=== PATIENT | male | born 1930 | race African-American/Black ===

== ENCOUNTER 2017-04-02 17:01 | Emergency (ER) | payer MEDICARE ==
--- NOTE | 2017-04-02 18:32 | RAD ---
RADIOGRAPH LEFT WRIST THREE VIEWS: Date: 04/02/17 Time: 5:34 p.m. HISTORY: 86-year-old male status post fall resulting in left wrist pain. FINDINGS: Mildly comminuted fracture of distal radial metaphysis, with predominantly transverse orientation, w ith dorsal impaction and dorsal angulation of distal fragment. No other fracture identified. No disl ocation. Diffuse osteopenia. No involvement of distal radiocarpal articular joint surface identified . IMPRESSION: 1. Acute, traumatic, displaced, closed, Colles' fracture of left distal radial metaphysis. 2. Diffuse, severe osteoporosis. POS: [facility]
[2017-04-02] MEDS ORDERED: Ketorolac Tromethamine 30 MG/ML VIAL ONE (18:50)
[2017-04-02] MEDS ORDERED: Lidocaine 1% PF 5 ML VIAL ONE ×2 (19:01)
[2017-04-02] MEDS ORDERED: Diprivan 20 ML ONE (21:12)
[2017-04-02] MEDS ORDERED: Fentanyl 100 MCG/2 ML VIAL ONE (21:12)
--- NOTE | 2017-04-02 22:43 | RAD ---
RADIOGRAPH LEFT WRIST 2 VIEWS: Date: 04/02/17 Time: 10:12 p.m. HISTORY: 86-year-old male status post reduction of distal radial fracture. COMPARISON: 04/02/17, 5:34 p.m. FINDINGS: The wrist has been placed into a splint. There is interval improvement in the alignment of distal ra dial metaphyseal fracture. IMPRESSION: 1. Acute, traumatic, displaced, angulated, Colles' fracture of the distal radial metaphysis. 2. Interval improvement in alignment after reduction. POS: [facility]
== END 2017-04-02 22:24 | disposition home or self-care (01) ==
LOC: ERS 17:01
DX: S52.532A Colles' fracture of left radius, initial encounter for closed fracture (principal); F41.9 Anxiety disorder, unspecified; F31.9 Bipolar disorder, unspecified; E78.5 Hyperlipidemia, unspecified; I10 Essential (primary) hypertension; J44.9 Chronic obstructive pulmonary disease, unspecified; W18.30XA Fall on same level, unspecified, initial encounter
CPT/HCPCS: 25605; 94760; 96360; 96372; 99152; J1885; J2001; J2704; J3010

== ENCOUNTER 2018-02-11 13:09 | Inpatient (IN) | payer MEDICARE, OTHER ==
[2018-02-11 15:08] LABS: CKMB 2.4 ng/mL (0-6.6); Troponin I Less than 0.010 ng/mL (< 0.028)
--- NOTE | 2018-02-11 15:31 | RAD ---
PORTABLE CHEST 1 VIEW: DATE: 02/01/18. TIME: 1:50 p.m. and 2:18 p.m. HISTORY: New-onset atrial flutter. FINDINGS: Portable chest radiographs were obtained with and without nipple markers. The heart size is normal. The aorta is tortuous. The lungs are expanded without focal areas of cons olidation, pneumothorax, daysi pulmonary edema, or pleural effusions. A density in the right chest n oted on image 1 corresponds to nipple shadows on the image with nipple markers. IMPRESSION: No acute process. POS: [facility]
[2018-02-11 18:49] LABS: Troponin I Less than 0.010 ng/mL (< 0.028)
[2018-02-11] MEDS ORDERED: Albuterol Sulfate 2.5 mg/3 ml Neb NEB PRN (19:51)
[2018-02-11] MEDS ORDERED: Senokot 8.6 MG TAB PO PRN (19:51)
[2018-02-11] MEDS ORDERED: Guaifenesin DM 100-10/5 ML UDCUP PO PRN (19:51)
[2018-02-11] MEDS ORDERED: Acetaminophen 325 MG TAB PO PRN (19:51)
[2018-02-11] MEDS ORDERED: Famotidine 20 MG TAB PO SCH (21:00)
[2018-02-11] MEDS: Nicotine 21 MG PATCH TD SCH (21:45)
[2018-02-11] MEDS: Gabapentin 300 MG CAP PO SCH (21:46)
[2018-02-11] MEDS: Terazosin HCl 5 MG CAP PO SCH (21:46)
[2018-02-11] MEDS: Montelukast Sodium 10 mg Tablet PO SCH (21:46)
[2018-02-11] MEDS: Simvastatin 20 MG TAB PO SCH (21:47)
[2018-02-11 21:52] VITALS: BMI 22.5
[2018-02-11] MEDS ORDERED: Diazepam 5 MG TAB PO PRN (22:28)
[2018-02-11] MEDS ORDERED: Diazepam 5 MG TAB PO SCH (22:30)
[2018-02-11] MEDS ORDERED: Thiamine HCl 200 MG/2 ML VIAL IM SCH (22:30)
[2018-02-12] MEDS: Ipratropium Bromide 2.5 ml Neb NEB SCH ×4 (01:18→19:06)
--- NOTE | 2018-02-12 01:43 | HP ---
REASON FOR ADMISSION: New onset atrial flutter in sinus rhythm at present. HISTORY OF PRESENTING ILLNESS: [facility] Jazzy trimble s morning. While in the waiting room, he was found to have had elevated heart rate. This was checke d again with the patient having increased heart rate, they did an EKG, which was irregular. He was a sked to come to the emergency room. On arrival here, patient was in atrial flutter at 146 beats per minute with 2:1 block. The patient apparently spontaneously converted to sinus rhythm and a repeat E KG done at 1:26 p.m. shows him to be in normal sinus rhythm. His current heart rate is around 61 per minute. This is on the ER monitor. Mr. Sarkar has no complaints of chest pain or palpitation. No complaints of shortness of breath, PND, or orthopnea. He states he has never had any problems with h is heart rhythm. The patient was in [facility] and moved here a year ago to live with his niece. PAST MEDICAL AND SURGICAL HISTORY: History of coronary artery disease with likely PTCA done in 1964 per patient. COPD, hypertension, dyslipidemia, glaucoma, chronic anemia, GERD, chronic back pain wit h prior back surgery, benign prostatic hypertrophy, right eye surgery with ongoing visual disturbance , colonoscopy done 4 years back per patient which was normal. CURRENT MEDICATIONS: The patient is on fluoxetine 20 mg p.o. daily, Singulair 10 mg p.o. daily, Prot jeremias 40 mg twice daily, Avodart 0.5 mg p.o. daily, gabapentin 300 mg p.o. 3 times daily, oxybutynin 5 mg daily, terazosin 10 mg p.o. q.a.m., aspirin 81 mg p.o. daily, Advair Diskus 250/50 mcg twice kyler y, Spiriva inhaler 18 mcg daily, albuterol inhaler q.6 hourly p.r.n., Zocor 20 mg p.o. q.a.m., dorzol amide eyedrops. ALLERGIES: No known drug allergies. PERSONAL HISTORY: The patient continues to smoke 1 pack a day and he also drinks a big cup of AirXpanders. Does not abuse drugs. He is currently living with his niece. FAMILY HISTORY: Mother at the age of 79 years from old age. Father was alcoholic and at t he age of 57 years. CODE STATUS: The patient would like to have one time CPR and he does not want to be resuscitated aft er that. Power of corporate associate attorney is his niece, Ms. Maliha Cobos. The patient is not and has no chi ldren per patient. REVIEW OF SYSTEMS: The following complete review of systems was negative, unless otherwise mentioned in the HPI or below: Constitutional: Weight loss or gain, ability to conduct usual activities. Sk in: Rash, itching. Eyes: Double vision, pain. ENT/Mouth: Nose bleeding, neck stiffness, pain, te nderness. Cardiovascular: Palpitations, dyspnea on exertion, orthopnea. Respiratory: Shortness of breath, wheezing, cough, hemoptysis, fever or night sweats. Gastrointestinal: Poor appetite, abdom inal pain, heartburn, nausea, vomiting, constipation, or diarrhea. Genitourinary: Urgency, frequenc y, dysuria, nocturia. Musculoskeletal: Pain, swelling. Neurologic/Psychiatric: Anxiety, depressio n. Allergy/Immunologic: Skin rash, bleeding tendency. PHYSICAL EXAMINATION: GENERAL: The patient is an 87-year-old male, who is currently not in any acute distress. VITAL SIGNS: Blood pressure 130/70, pulse 68 per minute, respiratory rate 16 per minute, temperature 98 degrees Fahrenheit, saturating 94% on room air. NECK: Supple, no elevated JVD. HEENT: Eyes, extraocular muscles intact, pupils reacting to light. Oral cavity, mucous membranes ar e moist. No exudates or congestion. CARDIOVASCULAR SYSTEM: S1, S2 heard. Regular rhythm. RESPIRATORY SYSTEM: Air entry 2+ bilateral. Scattered rhonchi plus no wheezes. ABDOMEN: Soft, bowel sounds heard. No tenderness, rigidity or guarding. EXTREMITIES: No peripheral edema or calf tenderness. VASCULAR SYSTEM: Peripheral pulses 1+ bilateral. No ischemic ulcerations or gangrene. CENTRAL NERVOUS SYSTEM: No gross focal deficits noted. The patient is hard of hearing, otherwise is oriented well. PSYCHIATRIC: The patient's mood is euthymic. No hallucinations or delusions. LABORATORY AND X-RAY FINDINGS: Initial EKG done in the ER showed atrial flutter with ventricular rat e of 146 beats per minute with 2:1 block, a subsequent EKG done at 01:26 p.m. shows normal sinus rhyt hm at 78 beats per minute. White count of 7, H&H 13 and 41, platelet count 209, MCV is 98. Electrol ytes are stable. BUN 11, creatinine 1.2. Troponin x2 is negative. CK-MB 2.4, CK levels 152. Liver enzymes within normal limits. Total bilirubin 0.5, albumin is 4.1, total cholesterol 210. HDL was greater than 260. This was 11:00 a.m. sample. Chest x-ray done showed no acute process. CLINICAL IMPRESSION AND PLAN: The patient will be admitted to telemetry for new onset atrial flutter which spontaneously resolved in the ER. The patient subsequently got up to go to restroom and has h ad elevation in his heart rates going up to 100 per staff in the ER. It soon comes back to resting r ates around 60 per minute once he is on the bed. He will be placed on a small dose of Cardizem 30 mg p.o. 3 times daily[address] We will also place him on a full dose of aspirin. We will continue all his amanda e medications including Neurontin, Singulair, Ditropan, Zocor, Hytrin, Spiriva inhaler, Avodart at ho me doses. He will be on a nicotine patch. Echo with 2D Doppler for LV function and valvular functio n and to rule out thrombus. The patient is 87 years old and is not steady on his feet. I have discu ssed anticoagulation with patient and his niece Ms. Maliha Cobos here at bedside. He also drinks a la rge cup of constantino on a daily basis. The patient also has underlying dementia and usually has sundown ing in the evenings per niece. In view of all the above risks, the patient would not be a candidate for anticoagulation due to increased risk of bleeding. They agree with the current plan. We will ge t consultation with Dr. Fulton who is education rn for Cardiology as well.
[2018-02-12] MEDS ORDERED: Diazepam 5 MG TAB PO PRN (04:00)
[2018-02-12 06:09] LABS: Anion Gap 9 mmol/L (10-20); BUN (Urea Nitrogen) 9 mg/dL (8.4-25.7); Calc. Creatinine Clearance 51 mL/min (70-130); Calcium 8.8 mg/dL (7.8-10.44); Carbon Dioxide 23 mmol/L (23-31); Chloride 108 mmol/L (98-107); Estimated GFR-MDRD 86; Glucose 92 mg/dL (83-110); Potassium 3.3 mmol/L (3.5-5.1); Sodium 137 mmol/L (136-145)
[2018-02-12 06:48] LABS: Hemoglobin 11.8 g/dL (14.0-18.0); Mean Corpuscular HGB CONC 33.9 g/dL (32.0-36.0); Mean Corpuscular Hemoglobin 32.6 pg (27.0-31.0); Mean Corpuscular Volume 96.2 fL (78.0-98.0); Mean Platelet Volume 7.4 fL (7.4-10.4); Platelet Count 186 thou/uL (130-400); RBC Distribution Width 14.7 % (11.5-14.5); White Blood Cell (WBC) Count 7.2 thou/uL (4.8-10.8)
[2018-02-12 06:49] LABS: Hypochromia SLIGHT = 6-15 cells (100X) (0-5/hpf); Lymphocytes 27 % (21-51); MDiff Complete? YES; Monocytes 8 % (0-10); Neutrophil 65 % (42-75); PLT Morphology Comment Appears Adequate
[2018-02-12] MEDS ORDERED: Spiriva 18 MCG CAP (Box of 5 Caps) INH SCH (07:00)
[2018-02-12] MEDS ORDERED: Enoxaparin Sodium 40 MG/0.4 ML SYRINGE SC SCH (09:00)
[2018-02-12] MEDS: Enoxaparin Sodium 80 MG/0.8 ML SYRINGE SC SCH ×2 (09:07→20:13)
[2018-02-12] MEDS: FLUoxetine HCl 20 MG CAP PO SCH (09:08)
[2018-02-12] MEDS: Magnesium Oxide 400 MG TAB PO SCH (09:08)
[2018-02-12] MEDS: Gabapentin 300 MG CAP PO SCH ×3 (09:08→20:15)
[2018-02-12] MEDS: Potassium Chloride 20 MEQ TAB PO SCH ×2 (09:09→20:15)
[2018-02-12] MEDS: Dutasteride 0.5 MG CAP PO SCH (09:09)
[2018-02-12] MEDS: Oxybutynin 5 MG TAB PO SCH (09:09)
[2018-02-12] MEDS: Folic Acid 1 MG TAB PO SCH (09:09)
[2018-02-12] MEDS: Multivitamin W/ Minerals 1 TAB PO SCH (09:09)
[2018-02-12] MEDS: Aspirin 325 mg Enteric Coated Tablet PO SCH (09:12)
[2018-02-12 09:23] LABS: Cardiac Risk 1.5 (Less than 4.5)
[2018-02-12 10:55] LABS: Platelet Count 197 thou/uL (130-400)
--- NOTE | 2018-02-12 12:50 | PDOC.PN ---
- Subjective Encounter Start Date: 02/12/18 Encounter Start Time: 09:30 Subjective: awake, oriented well, watching tv -: no c/o palp or chest pain - Objective Resuscitation Status: Resuscitation Status FULL:Full Resuscitation MAR Reviewed: Yes Vital Signs & Weight: Vital Signs (12 hours) Temp Pulse Resp BP BP Pulse Ox 02/12/18 08:00 97.5 F L 68 16 159/70 H 159/70 H 93 L 02/12/18 07:00 76 12 02/12/18 04:00 134/61 02/12/18 03:42 98.2 F 67 16 134/61 92 L 02/12/18 01:18 60 12 93 L Weight Weight 148 lb 2.41 oz I&O: 02/11/18 02/12/18 02/13/18 06:59 06:59 06:59 Intake Total 720 240 Output Total 200 Balance 520 240 Result Diagrams: 02/12/18 10:44 02/12/18 10:44 Phys Exam - Physical Examination HEENT: PERRLA, moist MMs Neck: no JVD, supple Respiratory: no wheezing, no rales Cardiovascular: RRR, no significant murmur Gastrointestinal: soft, non-tender, positive bowel sounds Musculoskeletal: no edema, pulses present Neurological: non-focal, moves all 4 limbs Psychiatric: A&O x 3 Dx/Plan (1) Atrial flutter Code(s): I48.92 - UNSPECIFIED ATRIAL FLUTTER Status: Acute Comment: new onset in sinus rhythm now (2) CAD (coronary artery disease) Code(s): I25.10 - ATHSCL HEART DISEASE OF [place] CORONARY ARTERY W/O ANG PCTRS Status: Chronic Qualifiers: Coronary Disease-Associated Artery/Lesion type: [place] artery [place] vs. transplanted heart: [place] heart Associated angina: without angina Qualified Code(s): I25.10 - Atherosclerotic heart disease of [place] coronary artery without angina pectoris (3) COPD (chronic obstructive pulmonary disease) Status: Chronic Qualifiers: COPD type: chronic bronchitis (4) BPH (benign prostatic hyperplasia) Code(s): N40.0 - BENIGN PROSTATIC HYPERPLASIA WITHOUT LOWER URINRY TRACT SYMP Status: Chronic Qualifiers: Lower urinary tract symptom presence: unspecified whether lower urinary tract symptoms present Qualified Code(s): N40.0 - Benign prostatic hyperplasia without lower urinary tract symptoms (5) Tobacco abuse Code(s): Z72.0 - TOBACCO USE Status: Chronic (6) Alcohol abuse Code(s): F10.10 - ALCOHOL ABUSE, UNCOMPLICATED Status: Chronic - Plan await echo results -: stable on low dose cardizem -: not a candidate for anticoagulation due to alc abuse and risk of fall -: on full dose asp, valium prn for alc wd, avodart, hytrin and ditropan -: dc plan this evening if cleared by cardio * . Review of Systems - Medications/Allergies Allergies/Adverse Reactions: Allergies Allergy/AdvReac Type Severity Reaction Status Date / Time No Known Drug Allergies Allergy Unverified 02/11/18 20:54 Medications: Current Medications Acetaminophen (Tylenol) 650 mg PO Q4H PRN PRN Reason: Headache/Fever or Pain Albuterol Sulfate (Ventolin) 2.5 mg NEB [id number] PRN PRN Reason: SOB &/or Wheezing Aspirin (Ecotrin) 325 mg PO DAILY [facility] Last Admin: 02/12/18 09:12 Dose: 325 mg Diazepam (Valium) 5 mg PO Q4H PRN PRN Reason: FOR ASE 10 OR GREATER Diltiazem HCl (Cardizem) 30 mg PO TID [facility] Last Admin: 02/12/18 09:08 Dose: 30 mg Dutasteride (Avodart) 0.5 mg PO DAILY [facility] Last Admin: 02/12/18 09:09 Dose: 0.5 mg Enoxaparin Sodium (Lovenox) 70 mg SC 0900,2100 [facility] Last Admin: 02/12/18 09:07 Dose: 70 mg Famotidine (Pepcid) 20 mg PO QPM [facility] Fluoxetine HCl (Prozac) 20 mg PO DAILY [facility] Last Admin: 02/12/18 09:08 Dose: 20 mg Folic Acid (Folvite) 1 mg PO DAILY [facility] Last Admin: 02/12/18 09:09 Dose: 1 mg Gabapentin (Neurontin) 300 mg PO TID [facility] Last Admin: 02/12/18 09:08 Dose: 300 mg Guaifenesin/Dextromethorphan (Robitussin Dm) 15 ml PO Q4H PRN PRN Reason: Cough Ipratropium [place] (Atrovent) 2.5 ml NEB [id number] [facility] Last Admin: 02/12/18 07:00 Dose: 2.5 ml Iron/Minerals/Multivitamins (Theragran M) 1 tab PO DAILY [facility] Last Admin: 02/12/18 09:09 Dose: 1 tab Magnesium Oxide (Magnesium Oxide) 400 mg PO DAILY [facility] Last Admin: 02/12/18 09:08 Dose: 400 mg Montelukast Sodium (Singulair) 10 mg PO QPM [facility] Last Admin: 02/11/18 21:46 Dose: 10 mg Nicotine (Nicoderm Patch) 21 mg TD Q24HR [facility] Last Admin: 02/11/18 21:45 Dose: 21 mg Oxybutynin Chloride (Ditropan) 5 mg PO DAILY [facility] Last Admin: 02/12/18 09:09 Dose: 5 mg Potassium Chloride (K-Dur) 40 meq PO BID [facility] Stop: 02/13/18 09:01 Last Admin: 02/12/18 09:09 Dose: 40 meq Senna (Senokot) 2 tab PO HSPRN PRN PRN Reason: Constipation Simvastatin (Zocor) 20 mg PO HS [facility] Last Admin: 02/11/18 21:47 Dose: 20 mg Sodium Chloride (Flush - Normal Saline) 10 ml IVF Q12HR [facility] Last Admin: 02/12/18 09:09 Dose: 10 ml Sodium Chloride (Flush - Normal Saline) 10 ml IVF PRN PRN PRN Reason: Saline Flush Last Admin: 02/12/18 00:08 Dose: 10 ml Terazosin HCl (Hytrin) 5 mg PO HS [facility] Last Admin: 02/11/18 21:46 Dose: 5 mg Thiamine HCl (Thiamine) 100 mg PO DAILY [facility] Last Admin: 02/12/18 09:08 Dose: 100 mg
--- NOTE | 2018-02-12 14:10 | CON ---
DATE OF CONSULTATION: 02/12/2018 HISTORY OF PRESENT ILLNESS: Azalea Sarkar is a pleasant 87-year-old black male, who denies any type o f heart rhythm problem in the past. [facility] and w as found to have an elevated heart rate. An EKG was performed, which revealed atrial flutter and he was sent to the emergency room. In the emergency room, he was in atrial flutter with 2:1 block, rate of 146 per minute and then apparently spontaneously converted to sinus rhythm. He denies any chest discomfort, palpitations or shortness of breath. He denies any history of lightheadedness, dizziness , or syncope. He does state that he had a stent placed in 1964. He was questioned about this because stents were n ot invented until the ; however, he is insistent this occurred in 1964. He does have some probl ems with mild dementia and sundowning in the past. PAST MEDICAL HISTORY: Probable coronary artery disease as noted above, COPD, hypertension, hyperlipi demia, anemia, GERD, back pain, and benign prostatic hypertrophy. CURRENT MEDICATIONS: At home there is albuterol nebs t.i.d., albuterol inhaler 2 puffs q.4 hours p.r .n., aspirin daily, vitamin D3 daily, docusate 100 mg p.r.n., dutasteride 1 tablet daily, Prozac 20 m g daily, Advair 1 puff b.i.d., gabapentin 300 t.i.d., Singulair 10 mg q.p.m., Ditropan 5 mg daily, pa ntoprazole b.i.d., simvastatin 20 mg at bedtime, terazosin 10 mg daily, and Spiriva 1 puff daily. ALLERGIES: None. OPERATIONS: Back surgery. SOCIAL HISTORY: Patient continues to smoke about 1 pack per day. He drinks a cup of constantino every da y. He has moved from [place] 1 year ago to live with his niece. FAMILY HISTORY: Negative for coronary artery disease. REVIEW OF SYSTEMS: Twelve-point review of systems otherwise unremarkable. PHYSICAL EXAMINATION: VITAL SIGNS: 134/61, pulse of 76, sinus rhythm on the monitor. HEENT: PERRL. NECK: Supple. CHEST: Clear. CARDIAC: S1 and S2 are normal, without any S3, S4, or murmurs. Carotid upstrokes normal without bru its. ABDOMEN: Normal bowel sounds, without tenderness, organomegaly. EXTREMITIES: Revealed no clubbing, cyanosis or edema (although the patient states his right leg beco me swollen at times). NEUROLOGIC: Grossly intact. SKIN: Warm and dry. LABORATORY DATA: EKG on admission revealed atrial flutter with 2:1 block. Subsequent EKG reveals no rmal sinus rhythm and is unremarkable. Hemoglobin 11.8, hematocrit 34.6, white count 7200, platelets 186,000. Sodium 137, potassium 3.3, chloride 108, carbon dioxide 23, BUN 9, creatinine 1.00. Tropo rajesh I x2 is normal. Cholesterol 210, triglycerides 37, HDL 260, LDL was not performed (somewhat conf using in that the HDL is greater than the total cholesterol and imagine that the triglycerides were 2 60, and HDL was 37, I will ask the laboratory to review this). IMPRESSION: 1. Atrial flutter, asymptomatic. He spontaneously converted to sinus rhythm. 2. History of coronary artery disease with stent placement according to the patient, although the da tabase is uncertain since he states this was placed in 1964, which is approximately 30 years before s tents were developed. 3. Hypertension. 4. Hyperlipidemia. 5. Smoker. 6. Chronic obstructive pulmonary disease. 7. Anemia. 8. Chronic back pain. 9. Benign prostatic hypertrophy. PLAN: The primary service feels that he should not be anticoagulated long-term due to his dementia, not being steady on his feet. I do feel, however, that during this hospital course, it would be adva ntageous to anticoagulate him since he just had this episode of atrial flutter and he will be placed on Lovenox 65 mg subcu b.i.d. Echocardiogram will be performed. Electrophysiology will be consulted in regards to possible catheter ablation of his atrial fibrillation after the weekend.
[2018-02-12] MEDS: Famotidine 20 MG TAB PO SCH (20:15)
[2018-02-12] MEDS: Simvastatin 20 MG TAB PO SCH (20:15)
[2018-02-12] MEDS: Montelukast Sodium 10 mg Tablet PO SCH (20:15)
[2018-02-12] MEDS: Terazosin HCl 5 MG CAP PO SCH (20:15)
[2018-02-12] MEDS: Nicotine 21 MG PATCH TD SCH (20:19)
[2018-02-13] MEDS: Ipratropium Bromide 2.5 ml Neb NEB SCH ×5 (00:33→23:24)
[2018-02-13] MEDS: Potassium Chloride 20 MEQ TAB PO SCH (08:58)
[2018-02-13] MEDS: Multivitamin W/ Minerals 1 TAB PO SCH (08:59)
[2018-02-13] MEDS: Dutasteride 0.5 MG CAP PO SCH (08:59)
[2018-02-13] MEDS: FLUoxetine HCl 20 MG CAP PO SCH (08:59)
[2018-02-13] MEDS: Magnesium Oxide 400 MG TAB PO SCH (08:59)
[2018-02-13] MEDS: Enoxaparin Sodium 80 MG/0.8 ML SYRINGE SC SCH ×2 (08:59→20:38)
[2018-02-13] MEDS: Oxybutynin 5 MG TAB PO SCH (08:59)
[2018-02-13] MEDS: Folic Acid 1 MG TAB PO SCH (08:59)
[2018-02-13] MEDS: Gabapentin 300 MG CAP PO SCH ×3 (09:02→20:37)
[2018-02-13] MEDS: Aspirin 325 mg Enteric Coated Tablet PO SCH (09:05)
--- NOTE | 2018-02-13 13:33 | PDOC.PN ---
- Subjective Encounter Start Date: 02/13/18 Encounter Start Time: 10:50 Subjective: no chest pain or sob or palp - Objective Resuscitation Status: Resuscitation Status FULL:Full Resuscitation MAR Reviewed: Yes Vital Signs & Weight: Vital Signs (12 hours) Temp Pulse Resp BP BP Pulse Ox 02/13/18 12:00 98.5 F 68 14 130/79 130/79 95 02/13/18 08:00 98.2 F 60 14 142/64 H 95 02/13/18 07:20 98.2 F 60 14 142/64 H 95 02/13/18 06:35 64 12 02/13/18 04:00 98.5 F 68 16 127/64 127/64 94 L Weight Weight 148 lb 2.41 oz I&O: 02/12/18 02/13/18 02/14/18 06:59 06:59 06:59 Intake Total 720 480 Output Total 200 Balance 520 480 Result Diagrams: 02/12/18 10:44 02/12/18 10:44 Phys Exam - Physical Examination HEENT: PERRLA, moist MMs Neck: no JVD, supple Respiratory: no wheezing, no rales Cardiovascular: RRR, no significant murmur Gastrointestinal: soft, non-tender, positive bowel sounds Musculoskeletal: no edema, pulses present Neurological: non-focal, moves all 4 limbs Psychiatric: normal affect, A&O x 3 Dx/Plan (1) Atrial flutter Code(s): I48.92 - UNSPECIFIED ATRIAL FLUTTER Status: Acute Comment: new onset in sinus rhythm now (2) CAD (coronary artery disease) Code(s): I25.10 - ATHSCL HEART DISEASE OF [place] CORONARY ARTERY W/O ANG PCTRS Status: Chronic Qualifiers: Coronary Disease-Associated Artery/Lesion type: [place] artery [place] vs. transplanted heart: [place] heart Associated angina: without angina Qualified Code(s): I25.10 - Atherosclerotic heart disease of [place] coronary artery without angina pectoris (3) COPD (chronic obstructive pulmonary disease) Status: Chronic Qualifiers: COPD type: chronic bronchitis (4) BPH (benign prostatic hyperplasia) Code(s): N40.0 - BENIGN PROSTATIC HYPERPLASIA WITHOUT LOWER URINRY TRACT SYMP Status: Chronic Qualifiers: Lower urinary tract symptom presence: unspecified whether lower urinary tract symptoms present Qualified Code(s): N40.0 - Benign prostatic hyperplasia without lower urinary tract symptoms (5) Tobacco abuse Code(s): Z72.0 - TOBACCO USE Status: Chronic (6) Alcohol abuse Code(s): F10.10 - ALCOHOL ABUSE, UNCOMPLICATED Status: Chronic - Plan hemostable -: is on lovneox 70mg q12h, full dose asp -: cardizem tid -: for EPS in am -: d/w Mrs.Brown Jett POA * . Review of Systems - Medications/Allergies Allergies/Adverse Reactions: Allergies Allergy/AdvReac Type Severity Reaction Status Date / Time No Known Drug Allergies Allergy Verified 02/12/18 23:18 Medications: Current Medications Acetaminophen (Tylenol) 650 mg PO Q4H PRN PRN Reason: Headache/Fever or Pain Albuterol Sulfate (Ventolin) 2.5 mg NEB [id number] PRN PRN Reason: SOB &/or Wheezing Aspirin (Ecotrin) 325 mg PO DAILY [facility] Last Admin: 02/13/18 09:05 Dose: 325 mg Diazepam (Valium) 5 mg PO Q4H PRN PRN Reason: FOR ASE 10 OR GREATER Last Admin: 02/12/18 23:18 Dose: 5 mg Diltiazem HCl (Cardizem) 30 mg PO TID [facility] Last Admin: 02/13/18 08:59 Dose: 30 mg Dutasteride (Avodart) 0.5 mg PO DAILY [facility] Last Admin: 02/13/18 08:59 Dose: 0.5 mg Enoxaparin Sodium (Lovenox) 70 mg SC 0900,2100 [facility] Last Admin: 02/13/18 08:59 Dose: 70 mg Famotidine (Pepcid) 20 mg PO QPM [facility] Last Admin: 02/12/18 20:15 Dose: 20 mg Fluoxetine HCl (Prozac) 20 mg PO DAILY [facility] Last Admin: 02/13/18 08:59 Dose: 20 mg Folic Acid (Folvite) 1 mg PO DAILY [facility] Last Admin: 02/13/18 08:59 Dose: 1 mg Gabapentin (Neurontin) 300 mg PO TID [facility] Last Admin: 02/13/18 09:02 Dose: 300 mg Guaifenesin/Dextromethorphan (Robitussin Dm) 15 ml PO Q4H PRN PRN Reason: Cough Ipratropium [place] (Atrovent) 2.5 ml NEB [id number] [facility] Last Admin: 02/13/18 06:35 Dose: 2.5 ml Iron/Minerals/Multivitamins (Theragran M) 1 tab PO DAILY [facility] Last Admin: 02/13/18 08:59 Dose: 1 tab Magnesium Oxide (Magnesium Oxide) 400 mg PO DAILY [facility] Last Admin: 02/13/18 08:59 Dose: 400 mg Montelukast Sodium (Singulair) 10 mg PO QPM [facility] Last Admin: 02/12/18 20:15 Dose: 10 mg Nicotine (Nicoderm Patch) 21 mg TD Q24HR [facility] Last Admin: 02/12/18 20:19 Dose: 21 mg Oxybutynin Chloride (Ditropan) 5 mg PO DAILY [facility] Last Admin: 02/13/18 08:59 Dose: 5 mg Senna (Senokot) 2 tab PO HSPRN PRN PRN Reason: Constipation Simvastatin (Zocor) 20 mg PO HS [facility] Last Admin: 02/12/18 20:15 Dose: 20 mg Sodium Chloride (Flush - Normal Saline) 10 ml IVF Q12HR [facility] Last Admin: 02/13/18 09:05 Dose: 10 ml Sodium Chloride (Flush - Normal Saline) 10 ml IVF PRN PRN PRN Reason: Saline Flush Last Admin: 02/12/18 00:08 Dose: 10 ml Terazosin HCl (Hytrin) 5 mg PO HS [facility] Last Admin: 02/12/18 20:15 Dose: 5 mg Thiamine HCl (Thiamine) 100 mg PO DAILY [facility] Last Admin: 02/13/18 08:59 Dose: 100 mg
[2018-02-13] MEDS: Terazosin HCl 5 MG CAP PO SCH (20:37)
[2018-02-13] MEDS: Montelukast Sodium 10 mg Tablet PO SCH (20:37)
[2018-02-13] MEDS: Simvastatin 20 MG TAB PO SCH (20:38)
[2018-02-13] MEDS: Famotidine 20 MG TAB PO SCH (20:38)
[2018-02-13] MEDS: Nicotine 21 MG PATCH TD SCH (20:43)
[2018-02-14] MEDS: Ipratropium Bromide 2.5 ml Neb NEB SCH ×3 (06:49→19:07)
[2018-02-14] MEDS: Aspirin 325 mg Enteric Coated Tablet PO SCH (08:34)
[2018-02-14] MEDS: Gabapentin 300 MG CAP PO SCH ×3 (08:34→20:11)
[2018-02-14] MEDS: Multivitamin W/ Minerals 1 TAB PO SCH (08:34)
[2018-02-14] MEDS: FLUoxetine HCl 20 MG CAP PO SCH (08:34)
[2018-02-14] MEDS: Dutasteride 0.5 MG CAP PO SCH (08:34)
[2018-02-14] MEDS: Magnesium Oxide 400 MG TAB PO SCH (08:35)
[2018-02-14] MEDS: Folic Acid 1 MG TAB PO SCH (08:35)
[2018-02-14] MEDS: Oxybutynin 5 MG TAB PO SCH (08:35)
[2018-02-14 10:05] LABS: Hemoglobin 12.4 g/dL (14.0-18.0); Platelet Count 207 thou/uL (130-400)
--- NOTE | 2018-02-14 12:12 | PDOC.PN ---
- Subjective Encounter Start Date: 02/14/18 Encounter Start Time: 10:20 Subjective: no chest pain or palp -: neice at bedside -: is npo for EPS - Objective Resuscitation Status: Resuscitation Status FULL:Full Resuscitation MAR Reviewed: Yes Vital Signs & Weight: Vital Signs (12 hours) Temp Pulse Resp BP BP Pulse Ox 02/14/18 08:29 99.0 F 72 17 127/63 95 02/14/18 06:49 80 16 97 02/14/18 04:00 123/86 02/14/18 03:46 98.1 F 72 17 123/86 92 L Weight Weight 136 lb 7.458 oz I&O: 02/13/18 02/14/18 02/15/18 06:59 06:59 06:59 Intake Total 480 1300 Output Total 1325 Balance 480 -25 Result Diagrams: 02/14/18 09:45 02/14/18 09:45 Phys Exam - Physical Examination HEENT: PERRLA, moist MMs Neck: no JVD, supple Respiratory: no wheezing, no rales Cardiovascular: RRR, no significant murmur Gastrointestinal: soft, non-tender, positive bowel sounds Musculoskeletal: no edema, pulses present Neurological: non-focal, moves all 4 limbs Psychiatric: normal affect, A&O x 3 Dx/Plan (1) Atrial flutter Code(s): I48.92 - UNSPECIFIED ATRIAL FLUTTER Status: Acute Comment: new onset in sinus rhythm now (2) CAD (coronary artery disease) Code(s): I25.10 - ATHSCL HEART DISEASE OF [place] CORONARY ARTERY W/O ANG PCTRS Status: Chronic Qualifiers: Coronary Disease-Associated Artery/Lesion type: [place] artery [place] vs. transplanted heart: [place] heart Associated angina: without angina Qualified Code(s): I25.10 - Atherosclerotic heart disease of [place] coronary artery without angina pectoris (3) COPD (chronic obstructive pulmonary disease) Status: Chronic Qualifiers: COPD type: chronic bronchitis (4) BPH (benign prostatic hyperplasia) Code(s): N40.0 - BENIGN PROSTATIC HYPERPLASIA WITHOUT LOWER URINRY TRACT SYMP Status: Chronic Qualifiers: Lower urinary tract symptom presence: unspecified whether lower urinary tract symptoms present Qualified Code(s): N40.0 - Benign prostatic hyperplasia without lower urinary tract symptoms (5) Tobacco abuse Code(s): Z72.0 - TOBACCO USE Status: Chronic (6) Alcohol abuse Code(s): F10.10 - ALCOHOL ABUSE, UNCOMPLICATED Status: Chronic - Plan hemostable -: is on cardizem 30mg tid -: awaiting ep studies today, is npo, iv fluids till he can eat -: may require anticoagulation for 2-4 weeks post ablation -: on asp, zocor, hytrin, avodart and oxybutynin. Ef is 50% with mod TR & MR * . Review of Systems - Medications/Allergies Allergies/Adverse Reactions: Allergies Allergy/AdvReac Type Severity Reaction Status Date / Time No Known Drug Allergies Allergy Verified 02/12/18 23:18 Medications: Current Medications Acetaminophen (Tylenol) 650 mg PO Q4H PRN PRN Reason: Headache/Fever or Pain Albuterol Sulfate (Ventolin) 2.5 mg NEB [id number] PRN PRN Reason: SOB &/or Wheezing Aspirin (Ecotrin) 325 mg PO DAILY [facility] Last Admin: 02/14/18 08:34 Dose: 325 mg Diazepam (Valium) 5 mg PO Q4H PRN PRN Reason: FOR ASE 10 OR GREATER Last Admin: 02/12/18 23:18 Dose: 5 mg Diltiazem HCl (Cardizem) 30 mg PO TID [facility] Last Admin: 02/14/18 08:35 Dose: 30 mg Dutasteride (Avodart) 0.5 mg PO DAILY [facility] Last Admin: 02/14/18 08:34 Dose: 0.5 mg Famotidine (Pepcid) 20 mg PO QPM [facility] Last Admin: 02/13/18 20:38 Dose: 20 mg Fluoxetine HCl (Prozac) 20 mg PO DAILY [facility] Last Admin: 02/14/18 08:34 Dose: 20 mg Folic Acid (Folvite) 1 mg PO DAILY [facility] Last Admin: 02/14/18 08:35 Dose: 1 mg Gabapentin (Neurontin) 300 mg PO TID [facility] Last Admin: 02/14/18 08:34 Dose: 300 mg Guaifenesin/Dextromethorphan (Robitussin Dm) 15 ml PO Q4H PRN PRN Reason: Cough Dextrose/Sodium Chloride (D5 0.9% Ns) 1,000 mls @ 75 mls/hr IV .[id number] [facility] Ipratropium [place] (Atrovent) 2.5 ml NEB [id number] [facility] Last Admin: 02/14/18 06:49 Dose: 2.5 ml Iron/Minerals/Multivitamins (Theragran M) 1 tab PO DAILY [facility] Last Admin: 02/14/18 08:34 Dose: 1 tab Magnesium Oxide (Magnesium Oxide) 400 mg PO DAILY [facility] Last Admin: 02/14/18 08:35 Dose: 400 mg Montelukast Sodium (Singulair) 10 mg PO QPM [facility] Last Admin: 02/13/18 20:37 Dose: 10 mg Nicotine (Nicoderm Patch) 21 mg TD Q24HR [facility] Last Admin: 02/13/18 20:43 Dose: 21 mg Oxybutynin Chloride (Ditropan) 5 mg PO DAILY [facility] Last Admin: 02/14/18 08:35 Dose: 5 mg Senna (Senokot) 2 tab PO HSPRN PRN PRN Reason: Constipation Simvastatin (Zocor) 20 mg PO HS [facility] Last Admin: 02/13/18 20:38 Dose: 20 mg Sodium Chloride (Flush - Normal Saline) 10 ml IVF Q12HR [facility] Last Admin: 02/14/18 08:35 Dose: 10 ml Sodium Chloride (Flush - Normal Saline) 10 ml IVF PRN PRN PRN Reason: Saline Flush Last Admin: 02/12/18 00:08 Dose: 10 ml Terazosin HCl (Hytrin) 5 mg PO HS [facility] Last Admin: 02/13/18 20:37 Dose: 5 mg Thiamine HCl (Thiamine) 100 mg PO DAILY [facility] Last Admin: 02/14/18 08:35 Dose: 100 mg
[2018-02-14] MEDS: Dextrose 5 % And 0.9 % NaCl 1,000 ML IV SCH (12:21)
[2018-02-14] MEDS ORDERED: Heparin 1000 UNIT/NS 500ML(OR) 500 ML ONE (13:34)
[2018-02-14] MEDS ORDERED: Lidocaine 2% PF 100 mg/5 ml Syringe ONE (14:01)
[2018-02-14] MEDS ORDERED: Propofol 1,000 MG/100 ML VIAL IV ONE (14:01)
[2018-02-14] MEDS ORDERED: Heparin 10,000 UNITS/1 ML VIAL ONE (14:33)
[2018-02-14] MEDS ORDERED: Isoproterenol 0.2 MG/1 ML AMP ONE (14:34)
[2018-02-14] MEDS ORDERED: DOPamine 400 MG/D5W 250 ML 0 ML ONE (14:34)
[2018-02-14] MEDS ORDERED: DOPamine 400 MG/D5W 250 ML 250 ML ONE (15:07)
[2018-02-14] MEDS ORDERED: Promethazine HCl 25 MG/ML VIAL SLOW IVP PRN (16:03)
[2018-02-14] MEDS ORDERED: Promethazine HCl 25 MG/ML VIAL IM PRN (16:03)
[2018-02-14] MEDS ORDERED: Morphine Sulfate 2 MG/ML SYRINGE SLOW IVP PRN (16:03)
[2018-02-14] MEDS ORDERED: Ondansetron HCl/PF 4 MG/2 ML Vial IVP PRN (16:03)
--- NOTE | 2018-02-14 16:45 | CON ---
DATE OF CONSULTATION: 02/14/2018 REFERRING PHYSICIAN: Dr. oSn Fulton. REASON FOR CONSULTATION: Atrial flutter. HISTORY OF PRESENT ILLNESS: Mr. Sarkar is an elderly -[place] male, who presented to the [facility] after being evaluated at the [facility] for routine appointment. He was found to have an elevated hear t rate and EKG was performed suggesting atrial flutter and he was sent to the emergency room for furt her evaluation. Upon further evaluation, he was found to be in 2:1 atrial flutter with ventricular r ate of 146 beats per minute, which spontaneously converted to sinus rhythm. He was asymptomatic thro ugh this episode and did not have any associated heart racing, palpitations, shortness of breath, or chest discomfort. He lives with his niece and moved in with her approximately one year ago after cuca ing in [place]. He does not have any children and has never . He reports that there have been episodes over the past year, where his heart rate has been elevated briefly with some low blood pressure readings with an elevated heart rate, but that he is remained asymptomatic. He reports that they have resolved after he smokes a cigarette and drinks alcohol. She also indicates that he has s ome mild dementia and sundowning in the past and drinks heavily, over a fifth of constantino every day. Amy ventura continues to use tobacco as well. Currently, Mr. Sarkar is resting comfortably in bed. He denies any heart racing, palpitations, chest pain or pressure, syncope, near syncope, stroke or stroke-like symptoms. He denies any prior heart rhythm issues, but does report that he had a stent placed in the remote past, but the exact time is q uite unknown and there are no records available to support this. REVIEW OF SYSTEMS: Twelve-point review of systems was conducted and is negative except that listed a mathieu in the HPI. PAST MEDICAL HISTORY: 1. Reported coronary artery disease with stenting by patient report, no records available. 2. COPD. 3. Hypertension. 4. Hyperlipidemia. 5. Anemia 6. Gastroesophageal reflux disease. 7. BPH. 8. Dementia. PAST SURGICAL HISTORY: Back surgery at some point. ALLERGIES: No known drug allergies. MEDICATIONS: Include albuterol nebulizer t.i.d., albuterol inhaler 2 puffs q.4 hours as needed, aspi rin daily, vitamin D3 daily, docusate 100 mg as needed, dutasteride 1 tablet daily, Prozac 20 mg kyler y, Advair 1 puff b.i.d., gabapentin 300 mg t.i.d., Singulair 10 mg every evening, Ditropan 5 mg daily , pantoprazole b.i.d., simvastatin 20 mg at bedtime, terazosin 10 mg daily, and Spiriva 1 puff daily. FAMILY HISTORY: Negative for coronary artery disease or sudden cardiac to the best of the windy ent and his niece's recollection. SOCIAL HISTORY: Moved to [place] to reside with lamont 1 year ago from [place] as mentioned above. Co ntinues to smoke cigarettes, approximately 1 pack a day and drink heavily greater than one fifth of b mayra daily. PHYSICAL EXAMINATION: VITAL SIGNS: Most recent vital signs 98.4, pulse 85, blood pressure 131/69, respirations 12, oxygen is 97% on room air. GENERAL: Elderly man in no apparent distress. He is resting comfortably in bed during the exam. He is very hard of hearing. He is alert and interactive. He converses appropriately, but is somewhat a poor historian. There is a questionable historian. His speech is clear. He is normocephalic, atr aumatic. His sclerae are anicteric. EOMs are intact. NECK: Supple without jugular venous distention. Thyroid is not palpable. CHEST: Clear to auscultation with respirations even and unlabored. CARDIOVASCULAR: Heart rate is currently irregularly irregular without murmurs, rubs or gallops. PMI is nondisplaced. EXTREMITIES: Warm and dry to touch without clubbing, cyanosis or edema. ABDOMEN: Soft and nontender without palpable masses and hepatojugular reflex is negative. Positive bowel sounds are noted throughout. NEUROLOGIC: Grossly intact and nonfocal. Gait was not assessed. DATABASE: Telemetry and EKG were personally reviewed. On admission, his 12-lead EKG and rhythm stri p revealed atrial flutter with 2:1 AV conduction with a ventricular rate of 146 beats per minute. Af ter he spontaneously converted, he has been in normal sinus rhythm with normal intervals and controll ed ventricular rates. LABORATORY DATA: Hematology: WBC 7.2 on date of admission. Hemoglobin and hematocrit are somewhat low on admission, most recently 12.4 and 37.7 respectively (11.8 and 34.6 on admission), platelet cou nt 207. Chemistry: Sodium 137, potassium 3.3, chloride 108, BUN is 9, creatinine 1.18. Serial trop onins were negative. Echocardiogram on 02/12/2018, EF 50% to 55%, left atrium mildly dilated. Moder ate to severe TR, moderate MR. ASSESSMENT AND PLAN: 1. Typical CTI dependent atrial flutter with RVR spontaneously converting to sinus rhythm and asympt omatic. 2. Prior coronary artery disease and possibly with a stent placed in the remote past. 3. Hypertension. 4. Hyperlipidemia. 5. Current tobacco habituation. 6. Chronic obstructive pulmonary disease. 7. Alcohol abuse. 8. Anemia 9. Dementia. PLAN: We discussed atrial flutter and various treatment options albeit medical management versus abl ation. At this point, they favor ablation for more complete resolution of the issue. Risks, benefit s, and alternatives were discussed. The risks include hematoma, bleeding at groin site, damage to th e pericardium, perforation of the heart, need for chest tube, cardiac arrhythmias, and possible need for CV Surgery. All questions were answered and patient and his niece both voiced understanding and wished to move forward with the ablation at the earliest convenience. This will be performed later t marisa. Ideally, we would have him anticoagulated for 30 days post-ablation, but he does have substant ially high risk for bleeding complications in the setting of his dementia, frequent falls and also co ntinued alcohol abuse. We will further discuss this post-ablation. Thank you for allowing us to participate in the care of this patient.
[2018-02-14] MEDS: Terazosin HCl 5 MG CAP PO SCH (20:11)
[2018-02-14] MEDS: Famotidine 20 MG TAB PO SCH (20:11)
[2018-02-14] MEDS: Simvastatin 20 MG TAB PO SCH (20:12)
[2018-02-14] MEDS: Montelukast Sodium 10 mg Tablet PO SCH (20:12)
[2018-02-14] MEDS: Nicotine 21 MG PATCH TD SCH (20:13)
--- NOTE | 2018-02-15 00:23 | OP ---
DATE OF SERVICE: 02/14/2018 ELECTROPHYSIOLOGY STUDY AND RADIOFREQUENCY ABLATION REPORT REFERRING PHYSICIAN: Dr. Fulton. REASON FOR PROCEDURE: Mr. Sarkar is an 87-year-old man with history of normal LVEF, ETOH abuse who p resented with a near syncopal spell, he is found to be in sustained atrial flutter which eventually s taff terminated. He is here for EP study and radiofrequency ablation. PROCEDURE: The patient received propofol by Anesthesia specialist. After adequate level of sedation achieved, the right femoral venous area was prepped and anesthetized using subcutaneous lidocaine an d with ultrasound guidance, the right femoral vein was accessed x2 and two 8 Irish short sheath was introduced. Through this, a decapolar CS catheter was advanced to the right atrium, His bundle, righ t ventricle and eventually to the CS position. Pacing, mapping, and recording was performed in each location. Following that, the Thermo[employer] SF peak ablation catheter was advanced to the right atrium, right atrial, 3D map also 3D map of the CS and cavotricuspid isthmus was performed. Following that baseline measurements were obtained with the following finding. Baseline cycle length is 982 milliseconds in sinus rhythm, IA 121, QRS 86, QT 436 milliseconds, AH 93 , HV 45 milliseconds. Sinus node recovery times 1526, corrected sinus recovery time of 400-500 mitzy seconds. AV Wenckebach cycle length was 400 milliseconds, retrograde Wenckebach cycle length was 620 milliseconds. Concentric retrograde VA conduction is seen. AV christina ERP was and there is no definite evidence for dual AV christina pathways. Following that a burst atrial pacing was attempted to induce atrial flutter, but no atrial flutter was seen. Due the typical appearance of the flutter, a decision was made to perform cavotricuspid isthmus ablation during proximal pacing. Cavotricuspid ab lation was performed increasing the trans-isthmus time from 40 milliseconds to 150 milliseconds. The cavotricuspid isthmus block was demonstrated by longest transisthmus time adjacent to the ablation l ine. Following that spontaneous development of nonsustained atrial fibrillation was also seen, but is impr nicky with repositioning of the CS catheter. Total of 4 ablation was performed with a total duration of the ablation was 2.5 minute. 40 kowalski lou rgy was used. Following that dopamine was administered after which we also rechecked the ablation line and reconnec tions were ablated. The cardiac silhouette did not change during ablation. Patient tolerated procedure well. Sheaths we re pulled in tag and label cutter. CONCLUSION: 1. Successful cavotricuspid isthmus ablation. 2. Abnormal sinus christina function. 3. Normal AV christina and His-Purkinje function otherwise. PLAN: A short anticoagulation and monitor for recurrence of atrial arrhythmias. A routine office fo llowup.
[2018-02-15] MEDS: Ipratropium Bromide 2.5 ml Neb NEB SCH ×3 (02:07→12:41)
[2018-02-15] MEDS ORDERED: Rivaroxaban 10 MG TAB PO STA (07:38)
[2018-02-15] MEDS: Multivitamin W/ Minerals 1 TAB PO SCH (10:08)
[2018-02-15] MEDS: Gabapentin 300 MG CAP PO SCH ×2 (10:08→15:07)
[2018-02-15] MEDS: FLUoxetine HCl 20 MG CAP PO SCH (10:08)
[2018-02-15] MEDS: Magnesium Oxide 400 MG TAB PO SCH (10:09)
[2018-02-15] MEDS: Folic Acid 1 MG TAB PO SCH (10:09)
[2018-02-15] MEDS: Oxybutynin 5 MG TAB PO SCH (10:09)
[2018-02-15] MEDS: Aspirin 325 mg Enteric Coated Tablet PO SCH (10:10)
[2018-02-15] MEDS: Dutasteride 0.5 MG CAP PO SCH (10:11)
--- NOTE | 2018-02-15 10:40 | PDOC.PN ---
- Subjective Encounter Start Date: 02/15/18 Encounter Start Time: 10:15 Subjective: no sob or palpitations -: sitting in chair reading newspaper -: feels good - Objective Resuscitation Status: Resuscitation Status FULL:Full Resuscitation MAR Reviewed: Yes Vital Signs & Weight: Vital Signs (12 hours) Temp Pulse Resp BP Pulse Ox 02/15/18 07:07 76 12 91 L 02/15/18 04:00 99.3 F 87 20 111/55 L 92 L 02/15/18 02:07 82 18 92 L 02/14/18 23:57 99.1 F 83 20 138/72 92 L Weight Weight 136 lb 8 oz I&O: 02/14/18 02/15/18 02/16/18 06:59 06:59 06:59 Intake Total 1300 1545 Output Total 1325 950 Balance -25 595 Result Diagrams: 02/14/18 09:45 02/14/18 09:45 Phys Exam - Physical Examination HEENT: PERRLA, moist MMs Neck: no JVD, supple Respiratory: no wheezing, no rales Cardiovascular: RRR, no significant murmur Gastrointestinal: soft, non-tender, no distention, positive bowel sounds Musculoskeletal: no edema, pulses present Neurological: non-focal, moves all 4 limbs Psychiatric: A&O x 3 Dx/Plan (1) Atrial flutter Code(s): I48.92 - UNSPECIFIED ATRIAL FLUTTER Status: Acute Comment: s/p cavotricuspid isthmus ablation 02/14/2018, new onset in sinus rhythm now (2) CAD (coronary artery disease) Code(s): I25.10 - ATHSCL HEART DISEASE OF [place] CORONARY ARTERY W/O ANG PCTRS Status: Chronic Qualifiers: Coronary Disease-Associated Artery/Lesion type: [place] artery [place] vs. transplanted heart: [place] heart Associated angina: without angina Qualified Code(s): I25.10 - Atherosclerotic heart disease of [place] coronary artery without angina pectoris (3) COPD (chronic obstructive pulmonary disease) Status: Chronic Qualifiers: COPD type: chronic bronchitis (4) BPH (benign prostatic hyperplasia) Code(s): N40.0 - BENIGN PROSTATIC HYPERPLASIA WITHOUT LOWER URINRY TRACT SYMP Status: Chronic Qualifiers: Lower urinary tract symptom presence: unspecified whether lower urinary tract symptoms present Qualified Code(s): N40.0 - Benign prostatic hyperplasia without lower urinary tract symptoms (5) Tobacco abuse Code(s): Z72.0 - TOBACCO USE Status: Chronic (6) Alcohol abuse Code(s): F10.10 - ALCOHOL ABUSE, UNCOMPLICATED Status: Chronic - Plan hemostable -: initiated on xarelto for likely 2-4 weeks per cardiology advice -: may dc home if ok with Cardiology -: counselling reg alcohol use and tobacco abuse -: is on cardizem 30mg tid * . Review of Systems - Medications/Allergies Allergies/Adverse Reactions: Allergies Allergy/AdvReac Type Severity Reaction Status Date / Time No Known Drug Allergies Allergy Verified 02/12/18 23:18 Medications: Current Medications Acetaminophen (Tylenol) 650 mg PO Q4H PRN PRN Reason: Headache/Fever or Pain Albuterol Sulfate (Ventolin) 2.5 mg NEB [id number] PRN PRN Reason: SOB &/or Wheezing Aspirin (Ecotrin) 325 mg PO DAILY [facility] Last Admin: 02/15/18 10:10 Dose: 325 mg Diazepam (Valium) 5 mg PO Q4H PRN PRN Reason: FOR ASE 10 OR GREATER Last Admin: 02/12/18 23:18 Dose: 5 mg Diltiazem HCl (Cardizem) 30 mg PO TID [facility] Last Admin: 02/15/18 10:08 Dose: 30 mg Dutasteride (Avodart) 0.5 mg PO DAILY [facility] Last Admin: 02/15/18 10:11 Dose: 0.5 mg Famotidine (Pepcid) 20 mg PO QPM [facility] Last Admin: 02/14/18 20:11 Dose: 20 mg Fluoxetine HCl (Prozac) 20 mg PO DAILY [facility] Last Admin: 02/15/18 10:08 Dose: 20 mg Folic Acid (Folvite) 1 mg PO DAILY [facility] Last Admin: 02/15/18 10:09 Dose: 1 mg Gabapentin (Neurontin) 300 mg PO TID [facility] Last Admin: 02/15/18 10:08 Dose: 300 mg Guaifenesin/Dextromethorphan (Robitussin Dm) 15 ml PO Q4H PRN PRN Reason: Cough Dextrose/Sodium Chloride (D5 0.9% Ns) 1,000 mls @ 75 mls/hr IV .[id number] [facility] Last Admin: 02/14/18 12:21 Dose: 1,000 mls Ipratropium [place] (Atrovent) 2.5 ml NEB [id number] [facility] Last Admin: 02/15/18 07:07 Dose: 2.5 ml Iron/Minerals/Multivitamins (Theragran M) 1 tab PO DAILY [facility] Last Admin: 02/15/18 10:08 Dose: 1 tab Magnesium Oxide (Magnesium Oxide) 400 mg PO DAILY [facility] Last Admin: 02/15/18 10:09 Dose: 400 mg Montelukast Sodium (Singulair) 10 mg PO QPM [facility] Last Admin: 02/14/18 20:12 Dose: 10 mg Nicotine (Nicoderm Patch) 21 mg TD Q24HR [facility] Last Admin: 02/14/18 20:13 Dose: 21 mg Oxybutynin Chloride (Ditropan) 5 mg PO DAILY [facility] Last Admin: 02/15/18 10:09 Dose: 5 mg Rivaroxaban (Xarelto) 20 mg PO 0600 [facility] Senna (Senokot) 2 tab PO HSPRN PRN PRN Reason: Constipation Simvastatin (Zocor) 20 mg PO HS [facility] Last Admin: 02/14/18 20:12 Dose: 20 mg Sodium Chloride (Flush - Normal Saline) 10 ml IVF Q12HR [facility] Last Admin: 02/14/18 20:22 Dose: 10 ml Sodium Chloride (Flush - Normal Saline) 10 ml IVF PRN PRN PRN Reason: Saline Flush Last Admin: 02/12/18 00:08 Dose: 10 ml Terazosin HCl (Hytrin) 5 mg PO HS [facility] Last Admin: 02/14/18 20:11 Dose: 5 mg Thiamine HCl (Thiamine) 100 mg PO DAILY [facility] Last Admin: 02/15/18 10:10 Dose: 100 mg
[2018-02-15] MEDS: Dextrose 5 % And 0.9 % NaCl 1,000 ML IV SCH (11:15)
--- NOTE | 2018-02-15 15:21 | PRG ---
DATE OF SERVICE: 02/15/2018 ELECTROPHYSIOLOGY FOLLOWUP NOTE SUBJECTIVE: Mr. Sarkar seems to be doing well one day after his ablation procedure. PHYSICAL EXAMINATION: VITAL SIGNS: Blood pressure 111/55, heart rate 87, respirations 20, temperature 99.3 degrees Fahrenh eit. GENERAL: He is alert and oriented man in no apparent distress. NECK: Supple. Jugular veins not distended. CHEST: Coarse without crackles. HEART: Sounds are regular to rate and rhythm. No murmur or gallop. ABDOMEN: Benign. Bowel sounds positive. EXTREMITIES: Lower extremity without edema, clubbing or cyanosis. DATABASE: EKGs reveals sinus rhythm. No recurrent atrial flutter or fibrillation is seen. LABORATORY DATA: None. ASSESSMENT AND PLAN: Mr. Sarkar is an 87-year-old man with history of some ETOH use, presenting with elevated heart rates in the atrial flutter [facility]. He was transferred here for f urther management, but he did convert spontaneously to sinus rhythm. He was not acutely symptomatic, but had prior rapid heartbeats as well. He underwent a cavotricuspid isthmus ablation by me yesterd anabela and I find him stable on subsequent day. I think it is reasonable to start him on Xarelto or Eliq uis at your preference. He is requested to follow up in our office in 4-6 weeks at which point we co uld consider discontinuing the medication unless further atrial arrhythmias occur.
[2018-02-15 17:35] VITALS: BP 120/78; TEMP 97.9
--- NOTE | 2018-02-15 23:43 | DIS ---
DATE OF ADMISSION: 02/11/2018 DATE OF DISCHARGE: 02/15/2018 DISCHARGE DISPOSITION: To home. PRIMARY DISCHARGE DIAGNOSIS: New onset atrial flutter in sinus rhythm status post cavotricuspid isth mus ablation. SECONDARY DISCHARGE DIAGNOSES: Coronary artery disease, chronic obstructive pulmonary disease, benig n prostatic hypertrophy, alcohol and tobacco abuse. PROCEDURES DONE DURING HOSPITALIZATION: Echo with 2D Doppler done showed an EF of 50%-55%, moderate mitral regurgitation, moderate to severe tricuspid regurgitation. Has had EP studies done on [address] Vidhya Lindsay and has had cavotricuspid isthmus ablation done. Hemoglobin and hematocrit 12 and 37, platelet count 207, total cholesterol 169, triglycerides 42, LDL 50, HDL 111, troponin x2 ne gative. DISCHARGE MEDICATIONS: Cardizem 30 mg p.o. 3 times daily, Xarelto 20 mg p.o. daily, aspirin 81 mg p. o. daily, albuterol nebulizer q.6 hourly t.i.d., vitamin D3 2000 units p.o. daily, brimonidine/dorzo lamide eyedrops as before, dutasteride 0.5 mg daily, Prozac 20 mg daily, Advair Diskus inhaler twice daily, gabapentin 300 mg 3 times daily, Xalatan eyedrops at bedtime, Singulair 10 mg at bedtime, oxyb utynin 5 mg daily, Protonix 40 mg twice daily, Zocor 20 mg p.o. at bedtime, terazosin 10 mg p.o. kyler y, Spiriva inhaler 18 mcg daily. ALLERGIES: No known drug allergies. INPATIENT CONSULTS: Dr. Fulton for Cardiology and Dr. Vidhya Lindsay for Electrophysiology. DISCHARGE PLAN: Patient to follow up with Dr. Fulton as advised Dr. Vidhya Lindsay in 4 weeks and [facility] physician in 1 week. BRIEF COURSE DURING HOSPITALIZATION: Patient had gone for a regular [facility] appointment and was found to be in atrial flutter. He was transferred here to the emergency room and patient was hospitalized. P atient converted to sinus rhythm spontaneously in the ER. He was closely monitored on telemetry. Th e patient was on Cardizem 30 mg oral 3 times daily. He is also on Lovenox therapeutic dose for atria l flutter. Patient has had consultation with Dr. Fulton and Dr. Vidhya Lindsay. He has had electroph ysiologic studies done on the with cavotricuspid isthmus ablation done for atrial flutter. Post -procedure, patient has remained hemodynamically stable. He needs to be on Xarelto and Cardizem for at least 4 weeks until he sees Dr. Vidhya Lindsay. Most likely these two medications will be discontinu ed if patient remains in sinus rhythm until then. He is otherwise hemodynamically stable. Please se e a [id number] documentation on [facility] for the day of discharge.
[2018-02-16] MEDS ORDERED: Rivaroxaban 10 MG TAB PO SCH (06:00)
--- NOTE | 2018-02-16 15:15 | EKG ---
Test Reason : Blood Pressure : / mmHG Vent. Rate : 078 BPM Atrial Rate : 078 BPM P-R Int : 132 ms QRS Dur : 080 ms QT Int : 386 ms P-R-T Axes : 069 027 027 degrees QTc Int : 440 ms Normal sinus rhythm Normal ECG Confirmed by JONES CISNEROS DO ([id number]), proposal editor HANNY WISEMAN ([id number]) on 02/16/2018 3:14:29 PM Referred By: Confirmed By:JONES CISNEROS DO
== END 2018-02-15 17:45 | disposition home or self-care (01) | DRG 274 ==
LOC: ERS 13:09 → 2NO 16:51
PROVIDERS: ADMIT Internal Medicine; ATTEND Internal Medicine
PROC: 025J3ZZ Destruction of Tricuspid Valve, Percutaneous Approach (ICD-10-PCS; principal; 2018-02-14)
PROC: 4A0234Z Measurement of Cardiac Electrical Activity, Percutaneous Approach (ICD-10-PCS; 2018-02-14)
DX: I48.92 Unspecified atrial flutter (principal); I25.10 Atherosclerotic heart disease of native coronary artery without angina pectoris; J44.9 Chronic obstructive pulmonary disease, unspecified; N40.0 Benign prostatic hyperplasia without lower urinary tract symptoms; F10.10 Alcohol abuse, uncomplicated; I10 Essential (primary) hypertension; E78.5 Hyperlipidemia, unspecified; D64.9 Anemia, unspecified; K21.9 Gastro-esophageal reflux disease without esophagitis; F03.90 Unspecified dementia, unspecified severity, without behavioral disturbance, psychotic disturbance, mood disturbance, and anxiety; F17.210 Nicotine dependence, cigarettes, uncomplicated
CPT/HCPCS: 36415; 71045; 76942; 80048; 80053; 80061; 81001; 82550; 82553; 82565; 84484; 85014; 85018; 85025; 85049; 93005; 93010; 93306; 93613; 93623; 93653; 94640; A4216; C1730; C1769; J1265; J1644; J1650; J2001; J2704; J3411; J3475; J7050; J7644

== ENCOUNTER 2018-03-07 08:56 | Outpatient (CLI) | payer MEDICARE | END 2018-03-07 08:57 | disposition home or self-care (01) | LOC: BICMRI 08:56 | PROVIDERS: ATTEND Family Medicine | DX: M47.26 Other spondylosis with radiculopathy, lumbar region (principal); M99.83 Other biomechanical lesions of lumbar region; M48.061 Spinal stenosis, lumbar region without neurogenic claudication; R93.7 Abnormal findings on diagnostic imaging of other parts of musculoskeletal system; M43.8X6 Other specified deforming dorsopathies, lumbar region; Z98.890 Other specified postprocedural states | CPT/HCPCS: 72148 ==

== ENCOUNTER 2019-01-18 09:13 | Emergency (ER) | payer MEDICARE ==
[2019-01-18 10:12] LABS: #Basophils 0.1 thou/uL (0.0-0.2); #Eosinphils 0.1 thou/uL (0.0-0.7); #Lymphocytes 1.7 thou/uL (1.20-3.40); #Neutrophils 4.6 thou/uL (1.40-6.50); %Basophils 0.9 % (0.0-1.0); %Eosinophils 0.9 % (0.0-10.0); %Lymphocytes 22.7 % (21.0-51.0); %Monocytes 13.5 % (0.0-10.0); Hemoglobin 13.1 g/dL (14.0-18.0); Mean Corpuscular Hemoglobin 33.8 pg (27.0-31.0); Mean Corpuscular Volume 99.2 fL (78.0-98.0); Mean Platelet Volume 6.7 fL (7.4-10.4); Platelet Count 217 thou/uL (130-400); RBC Distribution Width 14.2 % (11.5-14.5); Red Blood Cell (RBC) Count 3.88 mill/uL (4.70-6.10); White Blood Cell (WBC) Count 7.4 thou/uL (4.8-10.8)
[2019-01-18 10:34] LABS: ALT (SGPT) 11 U/L (8-55); AST (SGOT) 26 U/L (5-34); Albumin 3.7 g/dL (3.4-4.8); Alkaline Phosphatase 89 U/L (40-150); Anion Gap 15 mmol/L (10-20); BUN (Urea Nitrogen) 9 mg/dL (8.4-25.7); Bilirubin, Total 0.6 mg/dL (0.2-1.2); Calc. Creatinine Clearance 0 mL/min (70-130); Calcium 9.3 mg/dL (7.8-10.44); Carbon Dioxide 21 mmol/L (23-31); Chloride 107 mmol/L (98-107); Estimated GFR-MDRD 76; Glucose 87 mg/dL (83-110); Potassium 3.9 mmol/L (3.5-5.1); Protein, Total 6.7 g/dL (5.8-8.1); Sodium 139 mmol/L (136-145)
--- NOTE | 2019-01-18 10:48 | RAD ---
PORTABLE CHEST 1 VIEW: Date: 01/18/19 Time: 1013 hours HISTORY: Chest pain. Asthma. FINDINGS: Comparison made with exam of 02/11/18. The heart size is normal. The aorta is tortuous. The lungs are expanded without lobar consolidation, pneumothoraces, or pleural effusions. IMPRESSION: No acute process. POS: [facility]
--- NOTE | 2019-01-18 10:49 | RAD ---
RIGHT HP 2 VIEWS: Date: 01/18/19 HISTORY: Difficulty walking. Right hip pain. FINDINGS/IMPRESSION: There are mild degenerative changes in the right hip joint. No definite fracture or dislocation is id entified. POS: [facility]
--- NOTE | 2019-01-18 10:49 | RAD ---
AP PELVIS: Date: 01/18/19 HISTORY: Difficulty walking, hip pain. FINDINGS/IMPRESSION: No definite fracture or dislocation identified. If there is high clinical suspicion for fracture, further evaluation with CT scan should be performed . POS: [facility]
[2019-01-18] MEDS ORDERED: Ketorolac Tromethamine 30 MG/ML VIAL ONE (10:55)
[2019-01-18 11:11] LABS: Bilirubin Negative (Negative); Blood, Urine Negative (Negative); Clarity Clear (Clear); Glucose, Urine (Dipstick) Normal (Negative); Leukocyte Negative Leu/uL (Negative); Nitrite Negative (Negative); Protein, Urine (Dipstick) Negative (Neg-Trace)
== END 2019-01-18 12:18 | disposition home or self-care (01) ==
LOC: ERS 09:13
DX: M62.81 Muscle weakness (generalized) (principal); J44.9 Chronic obstructive pulmonary disease, unspecified; I10 Essential (primary) hypertension; E78.5 Hyperlipidemia, unspecified; D64.9 Anemia, unspecified; K21.9 Gastro-esophageal reflux disease without esophagitis; I25.10 Atherosclerotic heart disease of native coronary artery without angina pectoris; N40.0 Benign prostatic hyperplasia without lower urinary tract symptoms; F41.9 Anxiety disorder, unspecified; F31.9 Bipolar disorder, unspecified; F17.210 Nicotine dependence, cigarettes, uncomplicated
CPT/HCPCS: 36415; 71045; 72170; 80053; 81003; 85025; 94640; 96372; J1885; J7620

== ENCOUNTER 2019-04-10 08:55 | Emergency (ER) | payer MEDICARE ==
--- NOTE | 2019-04-10 09:27 | RAD ---
EXAM: Single view of the chest HISTORY: Fall with left rib pain COMPARISON: 01/18/2019 FINDINGS: Single view of the chest shows a normal sized cardiomediastinal silhouette. Atheroscleroti c calcifications are seen in the aorta. There is no evidence of consolidation, mass, or pleural effusion. The bones are unremarkable. IMPRESSION: No evidence of acute cardiopulmonary disease
--- NOTE | 2019-04-10 09:47 | CT ---
Cervical spine MRI without contrast: 04/10/2019 COMPARISON: None HISTORY: Fall, trauma, pain TECHNIQUE: Axial CT imaging at 2.5 mm intervals through the cervical spine without contrast. Coronal and sagittal reformatted imaging obtained. FINDINGS: The occipital condyles, the dens, and the C1-2 articulation appear within normal limits. There is a small nodule within the right lung apex medially measuring 8 mm. It demonstrates irregular margins. There are emphysematous changes noted within both lung apices. There is atherosclerotic calcification of the cavernous carotid arteries. The C1 ring is intact. Multilevel mid cervical spine of bilateral facet and uncovertebral osteophyte formation. There is multilevel disc space narrowing and degenerative endplate change, most prominent at C3-4, C4 -5, and C5-6. There is posterior osteophyte at C3-4 and C5-6. No displaced fracture or evidence of dislocation is seen. IMPRESSION: No displaced fracture or dislocation. Multilevel degenerative change within the cervical spine. 8 mm nodule within the right lung apex. Dedicated nonemergent follow-up chest CT advised. This may be neoplastic in nature. CODE T Code LN
--- NOTE | 2019-04-10 09:59 | CT ---
CT BRAIN NONCONTRAST: DATE: 04/10/19 HISTORY: 88-year-old male status post acute head trauma from fall. FINDINGS: There is no midline shift or any other mass effect. There is no evidence of acute intracranial hemor rhage, large cortical infarct, obstructive hydrocephalus, or extraaxial fluid collection. The calvar ium is intact. There is diffuse brain parenchymal volume loss. There is small focal soft tissue swelling and edema i n the left supraorbital forehead. There is a round, metallic fastener at the left superior portion of the coronal fissure. There is an old left upper parietal bur hole. IMPRESSION: 1. No acute intracranial findings. 2. Acute, traumatic, mild left lower frontal scalp contusion. 3. Diffuse involutional changes of the brain. 4. Evidence for old procedures of the left side of the upper calvarium. jn [] POS: [facility]
== END 2019-04-10 11:24 | disposition home or self-care (01) ==
LOC: ERS 08:55
DX: S22.32XA Fracture of one rib, left side, initial encounter for closed fracture (principal); J44.9 Chronic obstructive pulmonary disease, unspecified; I10 Essential (primary) hypertension; Z79.899 Other long term (current) drug therapy; W17.89XA Other fall from one level to another, initial encounter
CPT/HCPCS: 70450; 71045; 72125; 93005

== ENCOUNTER 2019-08-28 04:07 | Inpatient (IN) | payer MEDICARE ==
[2019-08-28] MEDS ORDERED: Morphine 4 MG/ML VIAL ONE ×2 (04:54→12:21)
[2019-08-28 05:25] LABS: Hemoglobin 11.8 g/dL (14.0-18.0); Mean Corpuscular HGB CONC 33.2 g/dL (32.0-36.0); Mean Corpuscular Hemoglobin 31.8 pg (27.0-31.0); Mean Corpuscular Volume 95.7 fL (78.0-98.0); Mean Platelet Volume 7.5 fL (7.4-10.4); Platelet Count 230 thou/uL (130-400); RBC Distribution Width 13.8 % (11.5-14.5); White Blood Cell (WBC) Count 8.9 thou/uL (4.8-10.8)
[2019-08-28 05:34] LABS: ALT (SGPT) 14 U/L (8-55); AST (SGOT) 22 U/L (5-34); Albumin 3.5 g/dL (3.4-4.8); Alkaline Phosphatase 105 U/L (40-110); Anion Gap 11 mmol/L (10-20); BUN (Urea Nitrogen) 9 mg/dL (8.4-25.7); Bilirubin, Total 0.4 mg/dL (0.2-1.2); Calc. Creatinine Clearance 0 mL/min (70-130); Calcium 8.9 mg/dL (7.8-10.44); Carbon Dioxide 23 mmol/L (23-31); Chloride 109 mmol/L (98-107); Estimated GFR-MDRD 74; Globulin 2.7 g/dL (2.4-3.5); Glucose 98 mg/dL (83-110); Potassium 4.1 mmol/L (3.5-5.1); Protein, Total 6.2 g/dL (5.8-8.1); Sodium 139 mmol/L (136-145)
[2019-08-28 05:40] LABS: Eosinophils 1 % (0-10); Hypochromia SLIGHT = 6-15 cells (100X) (0-5/hpf); Lymphocytes 22 % (21-51); MDiff Complete? YES; Monocytes 5 % (0-10); Neutrophil 72 % (42-75); Platelet Morphology Comment Appears Adequate
[2019-08-28 05:45] LABS: Bilirubin Negative (Negative); Blood, Urine Negative (Negative); Clarity Clear (Clear); Glucose, Urine (Dipstick) Normal (Negative); Leukocyte Negative Leu/uL (Negative); Nitrite Negative (Negative); Protein, Urine (Dipstick) Negative (Neg-Trace); Urobilinogen Normal mg/dL (Less than 2)
[2019-08-28] MEDS ORDERED: Acetaminophen 500 MG TAB ONE (07:39)
--- NOTE | 2019-08-28 07:52 | CT ---
PRELIMINARY REPORT/[facility]/EMERGENCY AFTER HOURS PROCEDURE PROCEDURE: CTA Chest with IV Contrast Material . HISTORY: RIGHT lower back pain. TECHNIQUE: Axial images were performed with multiplanar and 3-D (maximum intensity projection and freddie face-shaded) reconstructions. The patient was given iodinated nonionic IV contrast . COMPARISON: None . FINDINGS: Mild atherosclerosis thoracic aorta with no aneurysm or dissection. No evidence of pulmonary embolus. Mediastinum and hilar regions show no masses or lymphadenopathy. Normal size heart with no pericardial fluid. Emphysematous changes both lung eduardo. Linear scar versus discoid atelectasis lung bases. No pulmo nary consolidation, masses, or pleural fluid. Visualized upper abdomen shows multiple small cysts in the liver. Bilateral renal cortical cysts. No acute bony abnormality. Multilevel old thoracolumbar compression fractures with previous vertebro plasty at L1. IMPRESSION: No pulmonary embolus or aortic dissection. No pulmonary consolidation. COPD. No other acute change identified. ELECTRONICALLY SIGNED BY: Kavon Carpenter MD Aug 28, 2019 6:23:25 AM CDT This report is intended for review by the ordering physician only, in accordance of law. If you recei ve this report in error, please call [facility] at [phone]. FINAL [address]PORT CT arteriogram chest with IV contrast and 3-D imaging CT arteriogram abdomen with IV contrast and 3-D imaging HISTORY: Chest and abdomen pain with radiation to the back. FINDINGS: As described in the preliminary report by Dr. Carpenter from [facility], no acute vascula r abnormalities are apparent. There is calcification consistent with atherosclerosis. Bovine origin of the great vessels at the aortic arch. Old left posterolateral rib fractures. Chronic appearing compression deformities lower thoracic and l umbar vertebral bodies with vertebroplasty cement at one level. There is distention of the gallbladder, common bile duct, and pancreatic duct. Common bile duct measu res up to 1.0 cm. At the expected location of the ampulla of Vater is an oval calcification measuring up to 0.4 cm greatest oblique diameter on the coronal reformatted images. Partial obstruction at the ampullary stone is suspected. Please consider gastroenterologic consultati on for potential ERCP. Updated findings were discussed with Dr. Umana of the emergency department at 0745 hours. Exam is in disagreement with the preliminary report. Code QD Transcribed Date/Time: 08/28/2019 8:27 AM Reported By: Letha Mercedesally Signed: 08/28/2019 8:43 AM
--- NOTE | 2019-08-28 13:49 | CON ---
DATE OF CONSULTATION: 08/28/2019 REQUESTING PHYSICIAN: Dr. Umana. REASON FOR CONSULTATION: Choledocholithiasis. HISTORY OF PRESENT ILLNESS: Azalea Sarkar is an 89-year-old man with a history significant for COPD, hypertension, CAD, and chronic back pain. He does smoke tobacco. He has never had any issues with the gallbladder in the past and has no significant past gastrointestinal history that he can recall. He reports that while he was eating dinner last night, he had a fairly sudden onset of severe pain in the right shoulder and right shoulder blade as well as the right upper quadrant. Since then, it has been persistent, though waxing and waning in intensity. There has been some associated nausea. No fever. He has some baseline shortness of breath, which he feels is a bit worse with all this pain. He presented for evaluation. Laboratory studies showed no leukocytosis, normal liver tests, normal lipase. He had a CT dissection protocol and the preliminary read suggested no significant abnormalities. However, on secondary read today, it was noted that he does have biliary dilation with common bile duct up to 1 cm in size, also pancreatic ductal dilation, and a 4 mm focus of calcification at the area of the ampulla, which is thought to probably represent a stone. He is being admitted to the hospital for pain control and our evaluation, clinically stable. REVIEW OF SYSTEMS: Full review of systems including constitutional, head, eyes, ears, nose, throat, GI, , cardiovascular, respiratory, musculoskeletal, neurologic systems is negative except as noted in the HPI. PAST MEDICAL HISTORY: COPD, hypertension, hyperlipidemia, glaucoma, chronic anemia, GERD, chronic back pain, coronary artery disease, BPH, asthma, history of alcohol abuse, history of tobacco abuse. ALLERGIES: NO KNOWN DRUG ALLERGIES. OUTPATIENT MEDICATIONS: 1. Fluoxetine. 2. Montelukast. 3. Protonix 40 mg twice daily. 4. Avodart. 5. Gabapentin. 6. Terazosin. 7. Aspirin 81 mg daily. 8. Advair. 9. Simvastatin. 10. Dorzolamide. 11. Ultram. FAMILY HISTORY: Noncontributory. SOCIAL HISTORY: The patient has more than 5 alcoholic beverages per day. He continues to use tobacco, smoke cigarettes daily for the past 30 years about one pack per day. No drug use. PHYSICAL EXAMINATION: VITAL SIGNS: Temperature 98.3, pulse 66, blood pressure 135/64, and 93% oxygen saturation on room air. GENERAL: Elderly 89-year-old man, nontoxic appearing, lying in bed, in mild distress from abdominal pain. SKIN: No rash. No jaundice. HEENT: Eyes, no scleral icterus. Extraocular movements intact. ENT, mucous membranes moist. No oral lesions. LYMPH: No submandibular or supraclavicular lymphadenopathy. NECK: Thyroid, nontender to palpation. HEART: Regular rate and rhythm. LUNGS: Clear to auscultation bilaterally. ABDOMEN: Bowel sounds are present though hypoactive. The abdomen is soft. There is some tenderness to palpation in the right upper quadrant, but no guarding or rebound tenderness. EXTREMITIES: No peripheral edema. VESSELS: Radial pulses 2+ bilaterally. NEUROLOGIC: Cranial nerves 2 through 12 intact bilaterally. No focal deficits. LABORATORY STUDIES: WBC 8.9, hemoglobin 11.8, platelets 230. Sodium 139, potassium 4.1, BUN 9, creatinine 1.14, total bilirubin 0.4, alkaline phosphatase 105, AST 22, ALT 14, lipase normal at 12. Albumin is 3.5. Troponin is negative. Urinalysis is negative. IMAGING STUDIES: CT of the chest and abdomen with IV contrast was performed last night. This demonstrates no evidence of pulmonary embolus or aortic dissection. No pulmonary consolidation. He does have emphysematous changes in both lungs. He has distention of the gallbladder, common bile duct, and pancreatic duct with common bile duct measuring up to 1 cm. There is an oval calcification at the location of the ampulla measuring 0.4 cm, and stone is suspected. ASSESSMENT AND PLAN: 1. Right upper quadrant pain. 2. Probable choledocholithiasis, based on imaging findings of calcification of the level of the ampulla, biliary and pancreatic ductal dilation. I discussed the CT findings with the patient. It does appear he likely has choledocholithiasis, and this is the probable explanation for his acute symptoms. Interestingly, pancreatic and liver tests are all normal. We are going to proceed with endoscopic retrograde cholangiopancreatography tomorrow for further evaluation and probable stone extraction. I did briefly discuss with the patient that there is a possibility of finding other than choledocholithiasis such as ampullary mass, etc. We will evaluate on endoscopic retrograde cholangiopancreatography. Please have the patient n.p.o. after midnight. Discussed the benefits and also risks of the procedure including post endoscopic retrograde cholangiopancreatography pancreatitis. Thank you for the consultation. Please call anytime with questions or concerns. Job ID: [id number]
[2019-08-28] MEDS ORDERED: Iopamidol-370 76% 500 ML 1 ML ONE (14:46)
[2019-08-28 15:25] VITALS: BMI 21.2
[2019-08-28] MEDS ORDERED: Bisacodyl 5 MG TAB PO PRN (18:09)
[2019-08-28] MEDS: Dextrose 5 % And 0.9 % NaCl 1,000 ML IV SCH (18:27)
[2019-08-28] MEDS: Famotidine/PF 20 mg/2ml Vial SLOW IVP SCH (20:08)
[2019-08-28] MEDS: Gabapentin 300 MG CAP PO SCH (20:08)
[2019-08-28] MEDS: Atorvastatin Calcium 10 MG TAB PO SCH (20:08)
[2019-08-28] MEDS: Latanoprost 0.005% Ophth Soln 2.5 ml Bottle EA EYE SCH (20:08)
--- NOTE | 2019-08-29 03:22 | HP ---
CHIEF COMPLAINT: Back pain and right upper quadrant pain. HISTORY OF PRESENT ILLNESS: The patient is an 89-year-old male who is a who has a history of COPD and hypertension, who presents to the hospital with complaints of back pain and right upper quadrant pain going on x1 day. The patient's family who is at the bedside states that last night, he started having some back pain and right upper quadrant pain, did not feel really well. After the family massaged his lower back, he felt a little bit better and was able to eat a little food. However, throughout the night, his pain got worse, so at this time, he was brought into the hospital for further evaluation. Stated that he denies any nausea, vomiting, or diarrhea. The patient is very mobile, active, lives with family member. PAST MEDICAL HISTORY: He has a history of hyperlipidemia, COPD, hypertension, glaucoma, anemia, chronic back pain. CAD, unknown if he has a stent or not, the family does not know. This is per previous records. BPH. PAST SURGICAL HISTORY: He has had a some sort of a cardiac procedure, unknown and unclear. He has had laparoscopic back surgery and right eye surgery. REVIEW OF SYSTEMS: All negative except for the ones mentioned above in the HPI. SOCIAL HISTORY: He smokes and drinks significantly. He recently was in the [facility] for alcohol use and smoking; however, he continues back drinking. He drinks about 3 glasses of wine. Prior to that, he used to drink liquor and he also smokes one to half a pack a day. CODE STATUS: The patient is a DNAR. I did confirm this with the patient's niece who is his caregiver. ALLERGIES: HE HAS NO KNOWN DRUG ALLERGIES. MEDICATIONS: I have advised the patient to bring his medications since he does not have all of his medications. He is on: 1. Aspirin 81 mg daily. 2. Advair 1 puff twice a day. 3. Simvastatin 20 mg daily. 4. Protonix 40 mg daily. 5. Singulair 10 mg daily. 6. He is supposed to be on Xarelto 10 mg daily. I have asked the family to clarify and to call with his medications. PHYSICAL EXAMINATION: VITAL SIGNS: Temperature of 98.8, 97% on 2 L, pulse is 80, blood pressure 137/68. GENERAL: He is awake, alert, and oriented x3. Does not appear in distress. HEENT: Normocephalic, atraumatic. No lymphadenopathy noted. Pupils equal and reactive to light. CV: S1 and S2 present. No murmurs, rubs, or gallops. LUNGS: Clear to auscultation. No rhonchi or wheezes noted. ABDOMEN: Soft. Bowel sounds are present x2. Pain upon palpation to his right upper quadrant and his right lower back. EXTREMITIES: Trace lower extremity edema. Pedal pulses present x2. NEUROVASCULAR: No focal deficits noted. SKIN: No cuts, lesions, or bruises noted. LABORATORY RESULTS: WBCs of 8.9, hemoglobin of 11.8, hematocrit of 35.5, platelets of 230. Chemistry; sodium of 139, potassium of 4.1, BUN of 9, creatinine of 1.14. His LFTs are completely normal. His urine is also normal. He did initially have a CT dissection protocol which was negative for dissection; however, he was found to have a partial obstruction of the ampulla stone. ASSESSMENT AND PLAN: The patient is a very pleasant 89-year-old male, who presents to the hospital with complaints of abdominal pain. 1. Right-sided upper abdominal pain, most likely secondary to an obstructive calculi in his ampulla. He is going to go for an ERCP in the morning. We will keep him n.p.o. after midnight. Clear liquid diet currently. We will start him on IV fluids. GI has been consulted. We will check labs in the morning. His LFTs are completely normal. 2. History of paroxysmal atrial fibrillation, currently in sinus rhythm. I will hold off on his Xarelto for now. Again, I have asked the family to bring a full list of his medications. 3. Alcohol use and smoking history. I have put him on YARI protocol. Per family, he has never had any history of alcohol withdrawal. We will continue to monitor. His last drink was last night, he had about 3 glasses of wine. 4. History of coronary artery disease. He has had a PTCA done in the past. 5. Chronic obstructive pulmonary disease, currently stable. Continue to monitor. 6. Deep vein thrombosis prophylaxis. We will put the patient on SCDs and we will start back on his Xarelto once his procedure has been completed. Job ID: [id number]
[2019-08-29 05:25] LABS: ALT (SGPT) 13 U/L (8-55); AST (SGOT) 18 U/L (5-34); Albumin 3.3 g/dL (3.4-4.8); Alkaline Phosphatase 86 U/L (40-110); Anion Gap 10 mmol/L (10-20); BUN (Urea Nitrogen) 8 mg/dL (8.4-25.7); Bilirubin, Total 0.6 mg/dL (0.2-1.2); Calc. Creatinine Clearance 47 mL/min (70-130); Calcium 8.9 mg/dL (7.8-10.44); Carbon Dioxide 24 mmol/L (23-31); Chloride 108 mmol/L (98-107); Estimated GFR-MDRD 86; Globulin 3.2 g/dL (2.4-3.5); Glucose 92 mg/dL (83-110); Potassium 4.1 mmol/L (3.5-5.1); Protein, Total 6.5 g/dL (5.8-8.1); Sodium 138 mmol/L (136-145)
[2019-08-29 05:40] LABS: Eosinophils 1 % (0-10); Hemoglobin 12.3 g/dL (14.0-18.0); Lymphocytes 16 % (21-51); MDiff Complete? YES; Mean Corpuscular HGB CONC 31.7 g/dL (32.0-36.0); Mean Corpuscular Hemoglobin 30.1 pg (27.0-31.0); Mean Corpuscular Volume 95.1 fL (78.0-98.0); Mean Platelet Volume 7.6 fL (7.4-10.4); Monocytes 22 % (0-10); Neutrophil 61 % (42-75); Platelet Count 244 thou/uL (130-400); Platelet Morphology Comment Appears Adequate; RBC Distribution Width 13.7 % (11.5-14.5); Red Blood Cell (RBC) Count 4.08 mill/uL (4.70-6.10); White Blood Cell (WBC) Count 8.4 thou/uL (4.8-10.8)
[2019-08-29] MEDS ORDERED: Fentanyl 100 MCG/2 ML VIAL SLOW IVP SCH (06:00)
[2019-08-29] MEDS ORDERED: Indomethacin 50 MG SUPP ONE (09:51)
[2019-08-29] MEDS ORDERED: Iothalamate Meglumine 60% 50 ML VIAL FS ONE (09:51)
[2019-08-29] MEDS ORDERED: Fentanyl 100 MCG/2 ML VIAL ONE (09:52)
[2019-08-29] MEDS ORDERED: Levofloxacin 500 mg/D5W 100 ml Premix Bag ONE (10:00)
[2019-08-29] MEDS ORDERED: SUGAMMADEX SODIUM 200 MG/2 ML VIAL ONE (10:01)
[2019-08-29] MEDS ORDERED: PHENYLEPHRINE-NS 100 MCG/ML 10 ML SYRINGE ONE (10:08)
[2019-08-29] MEDS ORDERED: Lidocaine 1% PF 5 ML VIAL ONE (10:08)
[2019-08-29] MEDS ORDERED: PROPOFOL 200 MG/20 ML VIAL ONE (10:08)
[2019-08-29] MEDS ORDERED: EPHEDRINE 25 MG/5 ML SYRINGE ONE (10:08)
[2019-08-29] MEDS ORDERED: Ondansetron PF 4 MG/2 ML Vial ONE (10:08)
[2019-08-29] MEDS ORDERED: Rocuronium Bromide 10 MG/ML (10ML VIAL) ONE (10:08)
[2019-08-29] MEDS ORDERED: Ketorolac Tromethamine 30 MG/ML VIAL IVP PRN (10:58)
[2019-08-29] MEDS ORDERED: Promethazine HCl 25 MG/ML VIAL SLOW IVP PRN (10:58)
[2019-08-29] MEDS ORDERED: Promethazine HCl 25 MG/ML VIAL IM PRN (10:58)
[2019-08-29] MEDS ORDERED: Ondansetron HCl/PF 4 MG/2 ML Vial IVP PRN (10:58)
--- NOTE | 2019-08-29 11:47 | OP ---
DATE OF PROCEDURE: 08/29/2019 PROCEDURE PERFORMED: Endoscopic retrograde cholangiopancreatography, unsuccessful. PREPROCEDURE DIAGNOSES: CT scan is suggestive of dilated pancreatic duct and common bile duct with dilated gallbladder; however, LFTs are normal. There is concern for possible calcium distal bile duct concerning for a partially obstructing ampullary stone. ANESTHESIA: General endotracheal anesthesia. Levaquin 500 mg IV was given, Indocin suppositories were given, and IV fluids were given to help prevent post ERCP pancreatitis. POSTOPERATIVE DIAGNOSES: 1. Normal appearing ampulla was encountered with bile coming out of it. No evidence of mass or periampullary diverticula. 2. Cannulation could not be obtained either the pancreatic or common bile duct with multiple attempts with the sphincterotome and even with the use of a Glidewire. There seems to be no obstruction, so more aggressive attempts were aborted. RECOMMENDATIONS: MRCP. DESCRIPTION OF PROCEDURE: The patient was informed of the risks, benefits, and possible complications of endoscopy including perforation, reaction to medication, and aspiration. Informed consent was obtained. The patient was intubated and sedated, placed in a prone position on fluoroscopy table. A rolled glass crosscutter film was obtained. The endoscope was advanced to the esophagus, stomach, and second and third portions of the duodenum with ampulla was brought into view. There was no evidence of periampullary disease or overt ampullary masses. Multiple attempts at cannulation were unsuccessful. There were attempts with a Glidewire, which were unsuccessful as well. The procedure was then terminated. The patient was then extubated, brought to recovery room in stable condition. Job ID: [id number]
[2019-08-29] MEDS: Gabapentin 300 MG CAP PO SCH ×3 (12:03→20:25)
[2019-08-29] MEDS: Famotidine/PF 20 mg/2ml Vial SLOW IVP SCH ×2 (12:03→20:26)
--- NOTE | 2019-08-29 13:43 | PDOC.HOSPP ---
- Subjective Encounter Date: 08/29/19 Encounter Time: 12:20 Subjective: pt returned from ERCP. no mass found. pt urgently wants to go to the [facility] , helped him, needs assistance with supervision. otherwise he is able to ambulate without devices. - Objective Vital Signs & Weight: Vital Signs (12 hours) Temp Pulse Resp BP Pulse Ox 08/29/19 11:50 36.0 F L 68 16 130/68 95 08/29/19 06:45 93 L 08/29/19 06:43 61 16 93 L 08/29/19 04:55 99.0 F 61 18 141/69 H 93 L Weight Weight 140 lb I&O: 08/28/19 08/29/19 08/30/19 06:59 06:59 06:59 Intake Total 1210 Output Total 900 Balance 310 Result Diagrams: 08/29/19 04:40 08/29/19 04:40 Hospitalist ROS - Medication Medications: Active Medications Generic Name Dose Route Start Last Admin Trade Name Freq PRN Reason Stop Dose Admin Albuterol/Ipratropium 3 ml 08/29/19 01:00 08/29/19 06:43 Duoneb NEB 3 ml [id number] ONEYDA Administration Atorvastatin Calcium 10 mg 08/28/19 21:00 08/28/19 20:08 Lipitor PO 10 mg HS ONEYDA Administration Diltiazem HCl 30 mg 08/28/19 21:00 08/29/19 12:03 Cardizem PO Not Given TID ONEYDA Famotidine 20 mg 08/28/19 21:00 08/29/19 12:03 Pepcid SLOW IVP Not Given Q12HR ONEYDA Gabapentin 300 mg 08/28/19 21:00 08/29/19 12:03 Neurontin PO Not Given TID ONEYDA Dextrose/Sodium Chloride 1,000 mls @ 50 mls/hr 08/28/19 18:15 08/28/19 18:27 D5 0.9% Ns IV 1,000 mls .Q20H ONEYDA Administration Latanoprost 1 drop 08/28/19 21:00 08/28/19 20:08 Xalatan 0.005% Ophth Soln EA EYE 1 drop HS ONEYDA Administration - Exam General Appearance: NAD, awake alert Eye: PERRL ENT: normocephalic atraumatic Neck: supple Heart: RRR Respiratory: CTAB, no wheezes, no rales, normal chest expansion Gastrointestinal: soft, normal bowel sounds Neurological: cranial nerve grossly intact Hosp A/P - Plan RUQ abd pain choledochollithiasis [with nl TB and LFT?] Biliary ductal dilation--per Ct ERCP - no mass, ampulla of vater looks ok, start the diet and see whether he can tolerate. Monitor o/n. -am lbas - lipase, cmp, cbc. -appreciate help from GI.
--- NOTE | 2019-08-29 14:32 | MRI ---
MRI OF THE ABDOMEN WITHOUT CONTRAST: INDICATION: History of unsuccessful ERCP with abdominal pain. COMPARISON: CTA of the abdomen and pelvis dated 08/28/2019. FINDINGS: There is hydropic appearance of the gallbladder measuring nearly 10 cm in length. The common bile du ct is dilated measuring up to 9.8 mm. No definite intraluminal stone is seen. The main pancreatic d uct is normal in caliber. There is mild intrahepatic biliary ductal dilatation. No abnormal signal is seen throughout in the pancreas. No abnormal signal is seen within the spleen or adrenal glands. Small suspected cysts are seen involving the liver and kidneys. No hydronephrosis is demonstrated. There are remote-appearing compression abnormalities involving L4, L2, and L1. There is vertebropla sty change at L1. No free fluid is demonstrated. IMPRESSION: 1. Mildly hydropic gallbladder with moderate extrahepatic and mild intrahepatic biliary ductal dilat ation without evidence of an intraluminal stone. No main pancreatic ductal dilatation is evident. T here is no noncontrast MRI evidence to suggest the presence of pancreatitis. 2. Bilateral hepatic and renal cysts. 3. Lumbar vertebral body compression abnormalities appear remote with vertebroplasty change at L1. POS: [facility]
[2019-08-29] MEDS: Enoxaparin Sodium 40 MG/0.4 ML SYRINGE SC SCH (14:44)
[2019-08-29] MEDS: Docusate 100 MG CAP PO SCH (14:45)
[2019-08-29] MEDS: Dutasteride 0.5 MG CAP PO SCH (14:45)
--- NOTE | 2019-08-29 15:53 | PDOC.EVN ---
Event Note - Event Note Event Note: Asked to review the chart for this patient as the Physician Advisor. Patient does not meet criteria for inpatient status. Agree with Dr. Enamorado with change to Observation status and Code 44 for billing purposes.
[2019-08-29] MEDS: Dextrose 5 % And 0.9 % NaCl 1,000 ML IV SCH (16:56)
[2019-08-29] MEDS: Atorvastatin Calcium 10 MG TAB PO SCH (20:25)
[2019-08-29] MEDS: Acetaminophen 325 MG TAB PO PRN (20:25)
[2019-08-29] MEDS: Latanoprost 0.005% Ophth Soln 2.5 ml Bottle EA EYE SCH (20:26)
[2019-08-30 06:12] LABS: Band 1 % (5-11); Eosinophils 1 % (0-10); Hemoglobin 11.7 g/dL (14.0-18.0); Hypochromia SLIGHT = 6-15 cells (100X) (0-5/hpf); Lymphocytes 13 % (21-51); MDiff Complete? YES; Mean Corpuscular HGB CONC 32.4 g/dL (32.0-36.0); Mean Corpuscular Volume 95.7 fL (78.0-98.0); Mean Platelet Volume 7.7 fL (7.4-10.4); Monocytes 3 % (0-10); Neutrophil 82 % (42-75); Platelet Count 222 thou/uL (130-400); RBC Distribution Width 13.8 % (11.5-14.5); Red Blood Cell (RBC) Count 3.76 mill/uL (4.70-6.10); White Blood Cell (WBC) Count 8.3 thou/uL (4.8-10.8)
[2019-08-30 06:15] LABS: ALT (SGPT) 11 U/L (8-55); AST (SGOT) 16 U/L (5-34); Albumin 3.1 g/dL (3.4-4.8); Alkaline Phosphatase 84 U/L (40-110); Anion Gap 11 mmol/L (10-20); BUN (Urea Nitrogen) 8 mg/dL (8.4-25.7); Bilirubin, Total 0.3 mg/dL (0.2-1.2); Calc. Creatinine Clearance 45 mL/min (70-130); Calcium 8.6 mg/dL (7.8-10.44); Carbon Dioxide 23 mmol/L (23-31); Chloride 105 mmol/L (98-107); Estimated GFR-MDRD 83; Glucose 110 mg/dL (83-110); Lipase 12 U/L (8-78); Potassium 4.2 mmol/L (3.5-5.1); Protein, Total 6.1 g/dL (5.8-8.1); Sodium 135 mmol/L (136-145)
[2019-08-30] MEDS: Gabapentin 300 MG CAP PO SCH ×3 (08:37→19:53)
[2019-08-30] MEDS: Acetaminophen 325 MG TAB PO PRN ×2 (08:37→13:34)
[2019-08-30] MEDS: Dutasteride 0.5 MG CAP PO SCH (08:37)
[2019-08-30] MEDS: Famotidine/PF 20 mg/2ml Vial SLOW IVP SCH (08:46)
[2019-08-30] MEDS: Docusate 100 MG CAP PO SCH (11:25)
[2019-08-30] MEDS: Enoxaparin Sodium 40 MG/0.4 ML SYRINGE SC SCH (11:25)
--- NOTE | 2019-08-30 12:01 | NM ---
HEPATOBILIARY SCAN: Date: 08/30/2019 HISTORY: Hydropic gallbladder. RADIOPHARMACEUTICAL: 5.4 mCi technetium-99m mebrofenin injected intravenously. FINDINGS: There is good tracer extraction by the liver with prompt excretion into the biliary tract and small b owel loops and normal filling of the gallbladder. The calculated gallbladder ejection fraction following an oral fatty meal measures 4%. IMPRESSION: Chronic cholecystitis/gallbladder dyskinesia. POS: [facility]
--- NOTE | 2019-08-30 14:56 | PRG ---
DATE OF SERVICE: 08/30/2019 SUBJECTIVE: Mr. Sarkar had been feeling better late yesterday and this morning, but today is starting to have recurrence of this same pain in the right upper quadrant and to the back. There is no nausea or vomiting. He has been tolerating his liquid diet. Dr. Suarez was unable to achieve biliary cannulation on attempted ERCP yesterday. Subsequent MRCP showed no evidence of choledocholithiasis. There is some dilation of the common bile duct as well as a hydropic gallbladder. HIDA scan performed earlier today demonstrated decreased gallbladder ejection fraction of only 4%. The patient has remained hemodynamically stable and afebrile. He was evaluated by Dr. Rivera and my understanding is that following cardiac clearance, he is tentatively planning for cholecystectomy tomorrow. OBJECTIVE: VITAL SIGNS: Temperature 98.8, pulse 86, blood pressure 146/75, and 94% oxygen saturation on room air. GENERAL: No acute distress. HEART: Regular rate and rhythm. LUNGS: Clear to auscultation bilaterally. ABDOMEN: Bowel sounds are present. Soft. Tender to palpation in the right upper quadrant. No guarding or rebound tenderness. EXTREMITIES: No peripheral edema. LABORATORY STUDIES: WBC 8.3, hemoglobin 11.7, and platelets 222. Sodium 135, potassium 4.2, BUN 8, and creatinine 1.03. Lipase remains normal at 12. LFTs remain all normal with total bilirubin of 0.3, alkaline phosphatase 84, AST 16, and ALT 11. ASSESSMENT/PLAN: 1. Right upper quadrant pain. 2. Chronic cholecystitis. I discussed with the patient and his daughter that biliary cannulation was unsuccessful, but that further imaging demonstrates no evidence of choledocholithiasis, and particularly with normal LFTs and lipase, ERCP should not be necessary. HIDA scan does indeed suggest chronic cholecystitis and I agree with plan for cholecystectomy. No plan for any further GI interventions. 3. Please call back anytime with questions or concerns, or if GI can be of further assistance. Job ID: [id number]
--- NOTE | 2019-08-30 15:14 | PDOC.HOSPP ---
- Subjective Encounter Date: 08/30/19 Encounter Time: 01:10 Subjective: at bedside, HIDA - dyskinesia, plan for sux.still has abd pain. - Objective Vital Signs & Weight: Vital Signs (12 hours) Temp Pulse Resp BP Pulse Ox 08/30/19 11:14 98.8 F 86 18 146/75 H 94 L 08/30/19 07:25 98.6 F 64 14 145/84 H 95 08/30/19 07:07 76 16 96 08/30/19 03:43 98.2 F 64 16 106/59 L 95 Weight Weight 140 lb I&O: 08/29/19 08/30/19 08/31/19 06:59 06:59 06:59 Intake Total 1210 840 250 Output Total 900 350 Balance 310 490 250 Result Diagrams: 08/30/19 05:14 08/30/19 05:14 Hospitalist ROS - Medication Medications: Active Medications Generic Name Dose Route Start Last Admin Trade Name Freq PRN Reason Stop Dose Admin Acetaminophen 650 mg 08/29/19 05:50 08/30/19 13:34 Tylenol PO 650 mg Q4H PRN Administration Headache/Fever or Mild Pain Albuterol/Ipratropium 3 ml 08/29/19 01:00 08/30/19 07:07 Duoneb NEB 3 ml [id number] ONEYDA Administration Atorvastatin Calcium 10 mg 08/28/19 21:00 08/29/19 20:25 Lipitor PO 10 mg HS ONEYDA Administration Diltiazem HCl 30 mg 08/28/19 21:00 08/30/19 08:46 Cardizem PO Not Given TID ONEYDA Docusate Sodium 100 mg 08/29/19 09:00 08/30/19 11:25 Colace PO 100 mg DAILY ONEYDA Administration Dutasteride 0.5 mg 08/29/19 09:00 08/30/19 08:37 Avodart PO 0.5 mg DAILY ONEYDA Administration Enoxaparin Sodium 40 mg 08/29/19 09:00 08/30/19 11:25 Lovenox SC 40 mg 0900 ONEYDA Administration Famotidine 20 mg 08/28/19 21:00 08/30/19 08:46 Pepcid SLOW IVP Not Given Q12HR ONEYDA Gabapentin 300 mg 08/28/19 21:00 08/30/19 08:37 Neurontin PO 300 mg TID ONEYDA Administration Latanoprost 1 drop 08/28/19 21:00 08/29/19 20:26 Xalatan 0.005% Ophth Soln EA EYE 1 drop HS ONEYDA Administration - Exam General Appearance: NAD, awake alert Eye: PERRL ENT: normocephalic atraumatic Neck: supple Heart: RRR Respiratory: CTAB Gastrointestinal: soft, normal bowel sounds Neurological: cranial nerve grossly intact Psychiatric: normal affect Hosp A/P - Plan RUQ abd pain choledochollithiasis [with nl TB and LFT] Biliary ductal dilation--per Ct ERCP - no mass, ampulla of vater looks ok, start the diet and see whether he can tolerate. Monitor o/n. -am lbas - lipase, cmp, cbc. -appreciate help from GI. chronic cholecystitis Biliary dyskinesia pre-op pt has COPD and CAD[unclear on stent, but PCI in the past] No acute or active cardiopulm dysfn.. that requires further workup. prob evaluation for cholecystectomy Cardiol and pulm consulted. medically optimized for the cholecystectomy.
--- NOTE | 2019-08-30 16:46 | CON ---
DATE OF CONSULTATION: HISTORY OF PRESENT ILLNESS: Azalea Sarkar is an 89-year-old white male patient, who is eating when I entered to see him. The patient has been hospitalized since 08/28/2019, admitted through the emergency room to the hospitalist service and seen by Dr. Suarez in consultation. The patient complained of back pain and right upper quadrant pain. The patient is a with a history of COPD and hypertension with pain in the right upper back and abdomen for more than 48 hours. He has not been able to eat well according to the history. On 02/14/2018, Dr. Neftali Kee performed ablation study for a syncopal episode with A flutter. In this hospital, on 08/29/2019, Dr. Suarez performed an upper endoscopy with preoperative assessment noting normal liver function test, but a dilated bile duct. Cannulation of this duct could not be obtained, but there did not seem to be any obstruction. There was bile seen eroded from the bile duct. Echocardiogram on 02/12/2018, 55% EF, [id number] tricuspid regurgitation, otherwise no other valvular abnormality. On 08/28/2019, CT dissection protocol, dilated distal bile duct, distention of the gallbladder, common bile duct, pancreatic duct. Hepatobiliary scan with ejection fraction today 4% gallbladder ejection fraction, otherwise unremarkable scan. Abdominal MRI scan yesterday on 08/29/2019, renal cysts, lumbar vertebral compression abnormalities, vertebroplasty changes at L1, hydropic-appearing gallbladder, 10 cm in length. On 02/12/2018, Dr. Son Fulton saw the patient. He noted the patient was seen [place] recently, noted to be in A flutter, 2:[address] Fulton mentioned the patient had a stent placed in 1964, although Dr. Fulton acknowledged that the stents were not available to the s. The patient does have a history with some cognitive impairment. MEDICATIONS AT HOME: 1. Thiamine. 2. Folic acid. 3. B12. 4. Tylenol. 5. Spiriva. 6. Terazosin. 7. Zocor. 8. Xarelto. 9. Ditropan. 10. Eye drops. 11. Prozac. 12. Stool softeners. 13. Cardizem. 14. Aspirin. 15. Albuterol inhalers. PAST MEDICAL HISTORY: 1. COPD. 2. Hypertension. 3. Hyperlipidemia. 4. Anemia. 5. BPH. PAST SURGICAL HISTORY: Vertebroplasty. HABITS: Alcohol use in the past. Ongoing tobacco abuse. PHYSICAL EXAMINATION: VITAL SIGNS: Height 5 feet 8 inches, 140 pounds, 21 BMI, temperature 98.8 degrees, heart rate 86, and blood pressure 145/75. GENERAL: The patient is conversive, but the reliability is question. LUNGS: Coarse rhonchi, occasional wheeze. CARDIAC: Regular rate and rhythm. ABDOMEN: Soft. Mild tenderness in the right upper quadrant without peritoneal signs. EXTREMITIES: Unremarkable. LABORATORY DATA: Hemoglobin 11 and white count 8.3. Sodium 135, potassium 4.2, and bilirubin 0.3. ASSESSMENT AND PLAN: 1. Biliary symptoms. I agree with indication for laparoscopic cholecystectomy. I had discussed with the patient. He is agreeable. We will plan this tomorrow pending below. 2. Chronic obstructive pulmonary disease, ongoing tobacco abuse. Pulmonary consult preoperatively. Nebulizer treatments. Optimize pulmonary function. 3. Questionable coronary procedure in the past, seen by Dr. Fulton. Ablation performed in the past for atrial flutter. Cardiac evaluation prior to general anesthetic. 4. Ongoing tobacco abuse. 5. Dementia and cognitive impairment. Job ID: [id number]
[2019-08-30] MEDS ORDERED: Cyclobenzaprine 10 MG TAB PO SCH (17:15)
--- NOTE | 2019-08-30 17:20 | CON ---
DATE OF CONSULTATION: 08/30/2019 HISTORY OF PRESENT ILLNESS: Mr. Sarkar is an 89-year-old male who is complaining of back and abdominal discomfort. He is currently being evaluated by Surgery for possible cholecystectomy. I was consulted for COPD. PAST MEDICAL HISTORY: Remarkable for: 1. COPD, smoking 4 cigarettes a day. 2. Lipid disorder. 3. Hypertension. 4. Glaucoma. 5. History of coronary artery disease. 6. History of back surgery in the past. 7. History of eye surgery. SOCIAL HISTORY: He says he is down to 4 cigarettes a day. He drinks wine in the evening. He used to drink liquor prior to that. He is a do not resuscitate patient. ALLERGIES: HE HAS NO REPORTED DRUG ALLERGIES. REVIEW OF SYSTEMS: Otherwise, remarkable only for his back discomfort, which is right posterior back. PHYSICAL EXAMINATION: VITAL SIGNS: He is afebrile, heart rate 86, respiratory rate is 18, oximetry is 94, blood pressure 146/75. HEENT: Sclerae are anicteric. Extraocular movements full. NECK: Without lymphadenopathy. LUNGS: Clear. When I saw him, he was not wheezing. Earlier when Dr. Rivera saw him, he apparently was wheezing. HEART: Regular rhythm. ABDOMEN: Soft and nontender. EXTREMITIES: Without clubbing, cyanosis, or edema. LABORATORY DATA: Apparently, he had a CT dissection protocol done on August 27, which showed no lung masses. He had bullous changes in both lungs. IMPRESSION: Chronic obstructive pulmonary disease. It is probably near his baseline. It is impossible to quantitate risk in an 89-year-old with underlying chronic obstructive pulmonary disease. Obviously, he is at increased risk for pulmonary complications, but I do not think he would be able to cooperate to measure pulmonary function. I will be happy to follow the other physicians caring for him. The above was discussed with Dr. Rivera. TIME SPENT: This is a 50-minute consult, 50% of the time spent on the unit coordinating care. Job ID: [id number] [facility]
[2019-08-30] MEDS: guaiFENesin ER 600 MG TAB PO PRN (18:09)
[2019-08-30] MEDS: Latanoprost 0.005% Ophth Soln 2.5 ml Bottle EA EYE SCH (19:52)
[2019-08-30] MEDS: Atorvastatin Calcium 10 MG TAB PO SCH (19:53)
[2019-08-31] MEDS: Dutasteride 0.5 MG CAP PO SCH (07:53)
[2019-08-31] MEDS: Gabapentin 300 MG CAP PO SCH ×3 (07:53→20:32)
[2019-08-31] MEDS ORDERED: Famotidine/PF 20 mg/2ml Vial SLOW IVP SCH (09:00)
[2019-08-31] MEDS ORDERED: EPHEDRINE 25 MG/5 ML SYRINGE ONE (10:49)
[2019-08-31] MEDS ORDERED: PROPOFOL 200 MG/20 ML VIAL ONE (10:49)
[2019-08-31] MEDS ORDERED: PHENYLEPHRINE-NS 100 MCG/ML 10 ML SYRINGE ONE ×2 (10:49→13:35)
[2019-08-31] MEDS ORDERED: Ondansetron PF 4 MG/2 ML Vial ONE (10:49)
[2019-08-31] MEDS ORDERED: Rocuronium Bromide 10 MG/ML (10ML VIAL) ONE (10:49)
[2019-08-31] MEDS ORDERED: Lidocaine 1% PF 5 ML VIAL ONE (10:49)
[2019-08-31] MEDS ORDERED: Dexamethasone 20 MG/5 ML VIAL ONE (10:49)
--- NOTE | 2019-08-31 13:06 | NM ---
EXAM: CARDIAC SPECT HISTORY: Preoperative clearance. COPD, hypertension, renal artery disease, PTCA, smoker TECHNIQUE: A myocardial perfusion scan was performed using the single isotope 1 day protocol with toya hnetium 99m sestamibi. [10 mCi] was injected intravenously for the rest exam followed by 30 mCi for the stress study. Pharmacologic stress with Lexiscan was monitored and interpreted by DREW Arzola FINDINGS: Homogeneous tracer distribution is seen in the myocardial segments on stress and rest image s without fixed or reversible defects. Gated SPECT LVEF: 62% Wall motion exam: Normal IMPRESSION: Normal myocardial perfusion scan
[2019-08-31] MEDS ORDERED: Lidocaine 1% w/Epinephrine 1:100K 20 ML VIAL ONE ×2 (13:29→14:13)
[2019-08-31] MEDS ORDERED: Bupivacaine PF 0.5% 30 ML VIAL ONE ×2 (13:29→14:13)
[2019-08-31] MEDS ORDERED: Iothalamate Meglumine 60% 50 ML VIAL FS ONE ×2 (13:31→14:13)
[2019-08-31] MEDS ORDERED: Fentanyl 250 MCG/5 ML VIAL ONE (13:35)
[2019-08-31] MEDS ORDERED: Levofloxacin 500 mg/D5W 100 ml Premix Bag ONE (14:32)
[2019-08-31] MEDS ORDERED: SUGAMMADEX SODIUM 200 MG/2 ML VIAL ONE (14:55)
[2019-08-31] MEDS ORDERED: PROVENTIL INHALER 6.7 G (200 INHALATIONS) INH PRN (15:00)
[2019-08-31] MEDS ORDERED: Regadenoson 0.4 MG/5 ML SYRINGE ONE (15:10)
[2019-08-31] MEDS ORDERED: HYDROmorphone 2 MG/ML VIAL SLOW IVP PRN (15:19)
[2019-08-31] MEDS ORDERED: Promethazine HCl 25 MG/ML VIAL IM PRN (15:19)
[2019-08-31] MEDS ORDERED: Ondansetron HCl/PF 4 MG/2 ML Vial IVP PRN (15:19)
[2019-08-31] MEDS ORDERED: Promethazine HCl 25 MG/ML VIAL SLOW IVP PRN (15:19)
[2019-08-31] MEDS ORDERED: Fentanyl 100 MCG/2 ML VIAL ONE (15:20)
--- NOTE | 2019-08-31 15:59 | RAD ---
XR Cholangiogram in Surgery History: Intraoperative cholangiogram Comparison: MRI examination 2 days prior Findings: Single spot images obtained. There is dilatation of the common bile duct. No significant in trahepatic biliary dilatation. Impression: Fluoroscopy for surgical purposes.
--- NOTE | 2019-08-31 16:45 | OP ---
DATE OF PROCEDURE: 08/31/2019 PREOPERATIVE DIAGNOSES: 1. Chronic cholecystitis. 2. Biliary dyskinesia. 3. Dilated common bile duct. 4. Right flank pain. POSTOPERATIVE DIAGNOSES: 1. Chronic cholecystitis. 2. Biliary dyskinesia. 3. Dilated common bile duct. 4. Right flank pain. 5. Failed endoscopic retrograde cholangiopancreatography, attempted by Dr. Suarez. PROCEDURES PERFORMED: 1. Laparoscopic video cholecystectomy. 2. Intraoperative cholangiogram, (no filling defects, prompt drainage). ANESTHESIA: General, local with 0.5% Marcaine 30 mL and 1% Xylocaine with epinephrine 20 mL. DESCRIPTION OF PROCEDURE: The patient was taken to the operating room, where under general anesthesia in supine position, abdomen was prepared with ChloraPrep and draped in routine fashion. Local anesthetic was infiltrated in the skin and subcutaneous tissue about each port site. A vertical incision made and pneumoperitoneum to 15 mmHg was obtained with a Veress needle, replacing with a 5 port, video laparoscope inserted. Right subxiphoid incision was made and 11 port placed. Right subcostal incision was made at midclavicular entrance line and the 5 port was placed. Fundus of the gallbladder was grasped at cephalad. Infundibulum was grasped and reflected laterally. The gallbladder was distended. Cystic artery and duct were dissected free. Critical view obtained. A single clip placed on the cystic duct on the gallbladder side. Cystic artery was doubly clipped proximally, opening made in the cystic duct. Cholangiocatheter was inserted and cholangiogram was obtained using fluoroscopy. This revealed free flow of contrast to the duodenum without filling defects. Images were not saved because computed tomography technician was not available. Cholangiocatheter was removed. Cystic duct was now doubly clipped. Cystic artery and duct divided. Gallbladder dissected free from liver bed, obtaining good hemostasis prior to division of the final peritoneal attachments. Gallbladder and contents removed. Good hemostasis ensured. Afshan was placed in the liver bed. Irrigant and pneumoperitoneum evacuated. All instruments were removed. All skin incisions were approximated with interrupted subdermal 4-0 Monocryl and dermal glue applied. The patient tolerated the procedure well. Job ID: [id number]
[2019-08-31] MEDS: Enoxaparin Sodium 40 MG/0.4 ML SYRINGE SC SCH (16:57)
[2019-08-31] MEDS: Docusate 100 MG CAP PO SCH (16:57)
--- NOTE | 2019-08-31 17:32 | PDOC.HOSPP ---
- Subjective Encounter Date: 08/31/19 Encounter Time: 05:20 Subjective: pt seen later and he was in OR during my am rounds. resting, s/p chol'my. - Objective Vital Signs & Weight: Vital Signs (12 hours) Temp Pulse Resp BP BP Pulse Ox 08/31/19 16:05 98.0 F 73 18 132/73 132/73 96 08/31/19 07:13 98.7 F 66 16 125/70 98 08/31/19 06:25 66 14 97 Weight Weight 140 lb I&O: 08/30/19 08/31/19 09/01/19 06:59 06:59 06:59 Intake Total 840 400 Output Total 350 200 Balance 490 200 Result Diagrams: 08/30/19 05:14 08/30/19 05:14 Hospitalist ROS - Medication Medications: Active Medications Generic Name Dose Route Start Last Admin Trade Name Freq PRN Reason Stop Dose Admin Albuterol/Ipratropium 3 ml 08/30/19 19:00 08/31/19 14:47 Duoneb NEB Not Given [id number] [facility] Atorvastatin Calcium 10 mg 08/28/19 21:00 08/30/19 19:53 Lipitor PO 10 mg HS ONEYDA Administration Diltiazem HCl 30 mg 08/28/19 21:00 08/31/19 16:58 Cardizem PO Not Given TID ONEYDA Docusate Sodium 100 mg 08/29/19 09:00 08/31/19 16:57 Colace PO Not Given DAILY ONEYDA Dutasteride 0.5 mg 08/29/19 09:00 08/31/19 07:53 Avodart PO 0.5 mg DAILY ONEYDA Administration Enoxaparin Sodium 40 mg 08/29/19 09:00 08/31/19 16:57 Lovenox SC Not Given 0900 ONEYDA Gabapentin 300 mg 08/28/19 21:00 08/31/19 16:58 Neurontin PO Not Given TID ONEYDA Guaifenesin 600 mg 08/30/19 17:07 08/30/19 18:09 Mucinex PO 600 mg BIDPRN PRN Administration Cough Latanoprost 1 drop 08/28/19 21:00 08/30/19 19:52 Xalatan 0.005% Ophth Soln EA EYE 1 drop HS ONEYDA Administration - Exam General Appearance: NAD, awake alert Eye: PERRL ENT: normocephalic atraumatic Neck: supple Heart: RRR Respiratory: CTAB Gastrointestinal: normal bowel sounds Neurological: no focal deficits Hosp A/P - Plan RUQ abd pain choledochollithiasis [with nl TB and LFT] Biliary ductal dilation--per Ct ERCP - no mass, ampulla of vater looks ok, start the diet and see whether he can tolerate. Monitor o/n. -am lbas - lipase, cmp, cbc. -appreciate help from GI. chronic cholecystitis Biliary dyskinesia Biliary duct dilation s/p cholecystectomy. diet when able.
[2019-08-31] MEDS: Mometasone/Formoterol 120 PUFF INHALER INH SCH (19:10)
[2019-08-31] MEDS: Albuterol Sulfate 2.5 mg/3 ml Neb NEB SCH (19:11)
[2019-08-31] MEDS: Ipratropium Bromide 2.5 ml Neb NEB SCH ×2 (19:12→23:17)
[2019-08-31] MEDS: Montelukast Sodium 10 mg Tablet PO SCH (20:31)
[2019-08-31] MEDS: Terazosin HCl 5 MG CAP PO SCH (20:31)
[2019-08-31] MEDS: Atorvastatin Calcium 10 MG TAB PO SCH (20:32)
[2019-08-31] MEDS: Brimonidine Tartrate 0.2% Ophth Soln 5 ml Bottle EA EYE SCH (20:43)
[2019-08-31] MEDS: Latanoprost 0.005% Ophth Soln 2.5 ml Bottle EA EYE SCH (20:44)
[2019-08-31] MEDS: Dorzolamide HCl 2% Ophth Soln 10 ml Bottle EA EYE SCH (20:44)
[2019-09-01] MEDS: Mometasone/Formoterol 120 PUFF INHALER INH SCH ×2 (05:12→18:42)
[2019-09-01] MEDS: Albuterol Sulfate 2.5 mg/3 ml Neb NEB SCH ×3 (05:14→21:16)
[2019-09-01 05:42] LABS: #Lymphocytes 1.1 thou/uL (1.20-3.40); #Monocytes 1.1 thou/uL (0.11-0.59); #Neutrophils 6.6 thou/uL (1.40-6.50); %Eosinophils 0.1 % (0.0-10.0); %Lymphocytes 12.3 % (21.0-51.0); %Monocytes 12.6 % (0.0-10.0); Hemoglobin 12.1 g/dL (14.0-18.0); Mean Corpuscular HGB CONC 33.5 g/dL (32.0-36.0); Mean Corpuscular Hemoglobin 31.7 pg (27.0-31.0); Mean Corpuscular Volume 94.7 fL (78.0-98.0); Mean Platelet Volume 7.5 fL (7.4-10.4); Platelet Count 219 thou/uL (130-400); RBC Distribution Width 13.6 % (11.5-14.5); White Blood Cell (WBC) Count 8.8 thou/uL (4.8-10.8)
[2019-09-01 05:57] LABS: ALT (SGPT) 68 U/L (8-55); AST (SGOT) 113 U/L (5-34); Albumin 3.3 g/dL (3.4-4.8); Alkaline Phosphatase 87 U/L (40-110); Anion Gap 12 mmol/L (10-20); BUN (Urea Nitrogen) 12 mg/dL (8.4-25.7); Bilirubin, Total 0.5 mg/dL (0.2-1.2); Calc. Creatinine Clearance 45 mL/min (70-130); Calcium 9.3 mg/dL (7.8-10.44); Carbon Dioxide 27 mmol/L (23-31); Chloride 103 mmol/L (98-107); Estimated GFR-MDRD 81; Globulin 3.3 g/dL (2.4-3.5); Glucose 134 mg/dL (83-110); Potassium 4.5 mmol/L (3.5-5.1); Protein, Total 6.6 g/dL (5.8-8.1); Sodium 137 mmol/L (136-145)
[2019-09-01] MEDS: Ipratropium Bromide 2.5 ml Neb NEB SCH ×4 (07:29→23:18)
[2019-09-01] MEDS: Thiamine 100 MG TAB PO SCH (08:27)
[2019-09-01] MEDS: Folic Acid 1 MG TAB PO SCH (08:28)
[2019-09-01] MEDS: Cyanocobalamin (Vitamin B-12) 1,000 MCG TAB PO SCH (08:28)
[2019-09-01] MEDS: Oxybutynin ER 5 MG TAB PO SCH (08:28)
[2019-09-01] MEDS: FLUoxetine HCl 20 MG CAP PO SCH (08:28)
[2019-09-01] MEDS: Dutasteride 0.5 MG CAP PO SCH (08:28)
[2019-09-01] MEDS: Docusate 100 MG CAP PO SCH (08:28)
[2019-09-01] MEDS: Aspirin 81 mg Enteric Coated Tablet PO SCH (08:28)
[2019-09-01] MEDS: Enoxaparin Sodium 40 MG/0.4 ML SYRINGE SC SCH (08:28)
[2019-09-01] MEDS: Gabapentin 300 MG CAP PO SCH ×3 (08:28→20:48)
[2019-09-01] MEDS: Dorzolamide HCl 2% Ophth Soln 10 ml Bottle EA EYE SCH ×3 (09:14→20:51)
[2019-09-01] MEDS: Brimonidine Tartrate 0.2% Ophth Soln 5 ml Bottle EA EYE SCH ×3 (09:14→20:50)
--- NOTE | 2019-09-01 11:34 | PRG ---
DATE OF SERVICE: 09/01/2019 SUBJECTIVE: Azalea Sarkar is doing well after laparoscopic cholecystectomy. He is tolerating his breakfast almost, eating all of it. He states that his right flank pain has resolved. He only has postoperative tenderness. OBJECTIVE: LUNGS: Clear to auscultation. CARDIAC: Regular rhythm without murmur or gallop. ABDOMEN: Soft, nontender. Postoperative tenderness. Surgical trocar sites look normal. VITAL SIGNS: Temperature 98.3 degrees, pulse 87, blood pressure 120/65. LABORATORY DATA: His hemoglobin is 12 this morning, white count 8.8. Liver function tests normal. ASSESSMENT AND PLAN: From surgical standpoint, the patient is ready to be discharged home. I will see him as needed this hospitalization. Please call surgery if further input is necessary. The patient can be discharged home and follow up in my office in 2 to 3 weeks. Diet and activity as tolerated. No lifting restrictions. Job ID: [id number]
--- NOTE | 2019-09-01 12:50 | PDOC.HOSPP ---
- Subjective Encounter Date: 09/01/19 Encounter Time: 11:35 Subjective: says that he ate his breakfast, denies any pain. - Objective Vital Signs & Weight: Vital Signs (12 hours) Temp Pulse Resp BP Pulse Ox 09/01/19 11:50 98.4 F 88 14 103/59 L 96 09/01/19 10:17 77 16 92 L 09/01/19 07:29 94 L 09/01/19 07:14 98.3 F 87 14 120/65 93 L 09/01/19 05:11 79 16 94 L 09/01/19 04:48 97.7 F 76 16 116/70 93 L 09/01/19 00:53 98.3 F 78 16 113/63 97 Weight Weight 140 lb I&O: 08/31/19 09/01/19 09/02/19 06:59 06:59 06:59 Intake Total 400 400 Output Total 200 400 Balance 200 0 Result Diagrams: 09/01/19 05:13 09/01/19 05:13 Hospitalist ROS - Medication Medications: Active Medications Generic Name Dose Route Start Last Admin Trade Name Freq PRN Reason Stop Dose Admin Albuterol Sulfate 2.5 mg 08/31/19 18:30 09/01/19 10:16 Ventolin NEB Not Given TID-RT ONEYDA Albuterol/Ipratropium 3 ml 08/30/19 19:00 09/01/19 10:17 Duoneb NEB 3 ml [id number] ONEYDA Administration Aspirin 81 mg 09/01/19 09:00 09/01/19 08:28 Ecotrin PO 81 mg DAILY ONEYDA Administration Atorvastatin Calcium 10 mg 08/28/19 21:00 08/31/19 20:32 Lipitor PO 10 mg HS ONEYDA Administration Brimonidine Tartrate 1 drop 08/31/19 21:00 09/01/19 09:14 Alphagan 0.2% Ophth Soln EA EYE Not Given TID ONEYDA Cholecalciferol 2,000 units 09/01/19 09:00 09/01/19 08:27 Vitamin D3 PO 2,000 units DAILY ONEYDA Administration Cyanocobalamin 1,000 mcg 09/01/19 09:00 09/01/19 08:28 Vitamin B-12 PO 1,000 mcg DAILY ONEYDA Administration Diltiazem HCl 30 mg 08/28/19 21:00 09/01/19 08:28 Cardizem PO 30 mg TID ONEYDA Administration Docusate Sodium 100 mg 08/29/19 09:00 09/01/19 08:28 Colace PO 100 mg DAILY ONEYDA Administration Dorzolamide HCl 1 drop 08/31/19 21:00 09/01/19 09:14 Trusopt 2% Ophth Soln EA EYE Not Given TID ONEYDA Dutasteride 0.5 mg 08/29/19 09:00 09/01/19 08:28 Avodart PO 0.5 mg DAILY ONEYDA Administration Enoxaparin Sodium 40 mg 08/29/19 09:00 09/01/19 08:28 Lovenox SC 40 mg 0900 ONEYDA Administration Fluoxetine HCl 20 mg 09/01/19 09:00 09/01/19 08:28 Prozac PO 20 mg DAILY ONEYDA Administration Folic Acid 1 mg 09/01/19 09:00 09/01/19 08:28 Folvite PO 1 mg DAILY ONEYDA Administration Gabapentin 300 mg 08/28/19 21:00 09/01/19 08:28 Neurontin PO 300 mg TID ONEYDA Administration Guaifenesin 600 mg 08/30/19 17:07 08/30/19 18:09 Mucinex PO 600 mg BIDPRN PRN Administration Cough Ipratropium [place] 2.5 ml 08/31/19 19:00 09/01/19 10:17 Atrovent NEB Not Given [id number] [facility] Latanoprost 1 drop 08/28/19 21:00 08/31/19 20:44 Xalatan 0.005% Ophth Soln EA EYE Not Given HS [facility] Mometasone Furoate/Formoterol Fumar 2 puff 08/31/19 18:30 09/01/19 05:12 Dulera 200 Mcg/5 Mcg Inhaler INH 2 puff BID-RT [facility] Administration Montelukast Sodium 10 mg 08/31/19 21:00 08/31/19 20:31 Singulair PO 10 mg HS [facility] Administration Oxybutynin Chloride 5 mg 09/01/19 09:00 09/01/19 08:28 Ditropan Xl PO 5 mg DAILY ONEYDA Administration Pantoprazole Sodium 40 mg 08/31/19 21:00 09/01/19 08:27 Protonix PO 40 mg BID ONEYDA Administration Terazosin HCl 10 mg 08/31/19 21:00 08/31/19 20:31 Hytrin PO 10 mg HS ONEYDA Administration Thiamine HCl 100 mg 09/01/19 09:00 09/01/19 08:27 Thiamine PO 100 mg DAILY ONEYDA Administration - Exam General Appearance: NAD, awake alert Eye: PERRL ENT: normocephalic atraumatic Neck: supple Heart: RRR Respiratory: CTAB, normal chest expansion Gastrointestinal: soft, normal bowel sounds Extremities - other findings: wound vac, left foot on dressing Hosp A/P - Plan RUQ abd pain choledochollithiasis [with nl TB and LFT] Biliary ductal dilation--per Ct ERCP - no mass, ampulla of vater looks ok, start the diet and see whether he can tolerate. Monitor o/n. -am lbas - lipase, cmp, cbc. -appreciate help from GI. chronic cholecystitis Biliary dyskinesia Biliary duct dilation s/p cholecystectomy. diet when able. PT consult and plan for dc in 1 ot 3 days
[2019-09-01] MEDS: Terazosin HCl 5 MG CAP PO SCH (20:46)
[2019-09-01] MEDS: Montelukast Sodium 10 mg Tablet PO SCH (20:48)
[2019-09-01] MEDS: Atorvastatin Calcium 10 MG TAB PO SCH (20:48)
[2019-09-01] MEDS: Latanoprost 0.005% Ophth Soln 2.5 ml Bottle EA EYE SCH (20:51)
[2019-09-02] MEDS: Albuterol Sulfate 2.5 mg/3 ml Neb NEB SCH ×3 (07:40→19:06)
[2019-09-02] MEDS: Ipratropium Bromide 2.5 ml Neb NEB SCH ×4 (07:40→22:49)
[2019-09-02] MEDS: Mometasone/Formoterol 120 PUFF INHALER INH SCH ×2 (07:53→19:11)
[2019-09-02] MEDS: traMADol HCl 50 MG TAB PO PRN ×2 (08:57→23:31)
[2019-09-02] MEDS: Ibuprofen 600 MG TAB PO PRN (08:57)
[2019-09-02] MEDS: Acetaminophen 500 MG TAB PO PRN ×2 (08:57→23:31)
[2019-09-02] MEDS: guaiFENesin ER 600 MG TAB PO PRN (08:58)
[2019-09-02] MEDS: Gabapentin 300 MG CAP PO SCH ×3 (08:58→22:04)
[2019-09-02] MEDS: Enoxaparin Sodium 40 MG/0.4 ML SYRINGE SC SCH (08:58)
[2019-09-02] MEDS: Thiamine 100 MG TAB PO SCH (08:58)
[2019-09-02] MEDS: FLUoxetine HCl 20 MG CAP PO SCH (08:58)
[2019-09-02] MEDS: Brimonidine Tartrate 0.2% Ophth Soln 5 ml Bottle EA EYE SCH ×3 (08:58→22:22)
[2019-09-02] MEDS: Dutasteride 0.5 MG CAP PO SCH (08:58)
[2019-09-02] MEDS: Docusate 100 MG CAP PO SCH (08:59)
[2019-09-02] MEDS: Folic Acid 1 MG TAB PO SCH (08:59)
[2019-09-02] MEDS: Cyanocobalamin (Vitamin B-12) 1,000 MCG TAB PO SCH (08:59)
[2019-09-02] MEDS: Oxybutynin ER 5 MG TAB PO SCH (08:59)
[2019-09-02] MEDS: Dorzolamide HCl 2% Ophth Soln 10 ml Bottle EA EYE SCH ×3 (08:59→22:21)
[2019-09-02] MEDS: Aspirin 81 mg Enteric Coated Tablet PO SCH (08:59)
--- NOTE | 2019-09-02 18:04 | PDOC.HOSPP ---
- Subjective Encounter Date: 09/02/19 Encounter Time: 18:00 Subjective: f/u for cholelithiasis/cholecystitis s/p lap grecia POD #2. Feels ok overall. Some abd pain earlier that has resolved. Tolerating po intake - Objective Vital Signs & Weight: Vital Signs (12 hours) Temp Pulse Resp BP BP Pulse Ox 09/02/19 15:32 99 F 77 14 98/63 97 09/02/19 14:24 79 18 93 L 09/02/19 10:53 98.8 F 72 18 100/58 L 99 09/02/19 10:45 72 14 99 09/02/19 08:00 103/60 09/02/19 07:50 90 14 100 09/02/19 07:12 98.8 F 84 14 103/60 93 L Weight Weight 140 lb I&O: 09/01/19 09/02/19 09/03/19 06:59 06:59 06:59 Intake Total 400 240 Output Total 400 Balance 0 240 Result Diagrams: 09/01/19 05:13 09/01/19 05:13 Hospitalist ROS - Medication Medications: Active Medications Generic Name Dose Route Start Last Admin Trade Name Freq PRN Reason Stop Dose Admin Acetaminophen 1,000 mg 08/31/19 14:58 09/02/19 08:57 Tylenol PO 1,000 mg Q6H PRN Administration Moderate to Severe Pain (6-10) Albuterol Sulfate 2.5 mg 08/31/19 18:30 09/02/19 10:47 Ventolin NEB Not Given TID-RT ONEYDA Albuterol/Ipratropium 3 ml 08/30/19 19:00 09/02/19 14:24 Duoneb NEB 3 ml [id number] ONEYDA Administration Aspirin 81 mg 09/01/19 09:00 09/02/19 08:59 Ecotrin PO 81 mg DAILY ONEYDA Administration Atorvastatin Calcium 10 mg 08/28/19 21:00 09/01/19 20:48 Lipitor PO 10 mg HS ONEYDA Administration Brimonidine Tartrate 1 drop 08/31/19 21:00 09/02/19 15:54 Alphagan 0.2% Ophth Soln EA EYE 1 drop TID ONEYDA Administration Cholecalciferol 2,000 units 09/01/19 09:00 09/02/19 08:58 Vitamin D3 PO 2,000 units DAILY ONEYDA Administration Cyanocobalamin 1,000 mcg 09/01/19 09:00 09/02/19 08:59 Vitamin B-12 PO 1,000 mcg DAILY ONEYDA Administration Diltiazem HCl 30 mg 08/28/19 21:00 09/02/19 15:54 Cardizem PO Not Given TID ONEYDA Docusate Sodium 100 mg 08/29/19 09:00 09/02/19 08:59 Colace PO 100 mg DAILY ONEYDA Administration Dorzolamide HCl 1 drop 08/31/19 21:00 09/02/19 15:54 Trusopt 2% Ophth Soln EA EYE 1 drop TID ONEYDA Administration Dutasteride 0.5 mg 08/29/19 09:00 09/02/19 08:58 Avodart PO 0.5 mg DAILY [facility] Administration Enoxaparin Sodium 40 mg 08/29/19 09:00 09/02/19 08:58 Lovenox SC 40 mg 0900 ONEYDA Administration Fluoxetine HCl 20 mg 09/01/19 09:00 09/02/19 08:58 Prozac PO 20 mg DAILY [facility] Administration Folic Acid 1 mg 09/01/19 09:00 09/02/19 08:59 Folvite PO 1 mg DAILY [facility] Administration Gabapentin 300 mg 08/28/19 21:00 09/02/19 15:54 Neurontin PO 300 mg TID [facility] Administration Guaifenesin 600 mg 08/30/19 17:07 09/02/19 08:58 Mucinex PO 600 mg BIDPRN PRN Administration Cough Ibuprofen 600 mg 08/31/19 14:58 09/02/19 08:57 Motrin PO 600 mg Q6H PRN Administration Pain Ipratropium [place] 2.5 ml 08/31/19 19:00 09/02/19 10:47 Atrovent NEB Not Given [id number] [facility] Latanoprost 1 drop 08/28/19 21:00 09/01/19 20:51 Xalatan 0.005% Ophth Soln EA EYE 1 drop HS [facility] Administration Mometasone Furoate/Formoterol Fumar 2 puff 08/31/19 18:30 09/02/19 07:53 Dulera 200 Mcg/5 Mcg Inhaler INH 2 puff BID-RT [facility] Administration Montelukast Sodium 10 mg 08/31/19 21:00 09/01/19 20:48 Singulair PO 10 mg HS ONEYDA Administration Oxybutynin Chloride 5 mg 09/01/19 09:00 09/02/19 08:59 Ditropan Xl PO 5 mg DAILY ONEYDA Administration Pantoprazole Sodium 40 mg 08/31/19 21:00 09/02/19 08:58 Protonix PO 40 mg BID ONEYDA Administration Terazosin HCl 10 mg 08/31/19 21:00 09/01/19 20:46 Hytrin PO 10 mg HS ONEYDA Administration Thiamine HCl 100 mg 09/01/19 09:00 09/02/19 08:58 Thiamine PO 100 mg DAILY ONEYDA Administration Tramadol HCl 50 mg 08/31/19 14:58 09/02/19 08:57 Ultram PO 50 mg Q4H PRN Administration Moderate Pain (4-6) - Exam General Appearance: NAD, awake alert Eye: PERRL, anicteric sclera ENT: normocephalic atraumatic, no oropharyngeal lesions Neck: supple, symmetric, no JVD, no thyromegaly, no lymphadenopathy Heart: RRR, no murmur, no gallops, no rubs, normal peripheral pulses Respiratory: CTAB, no wheezes, no rales, no ronchi, normal chest expansion Gastrointestinal: soft, normal bowel sounds, no palpable masses Gastrointestinal - other findings: mild TTP Extremities: no cyanosis, no clubbing, no edema Skin: normal turgor, no lesions Neurological: cranial nerve grossly intact, no new deficit Musculoskeletal: normal tone, generalized weakness Psychiatric: normal affect, A&O x 3 Hosp A/P (1) Cholecystitis with cholelithiasis Code(s): K80.10 - CALCULUS OF GALLBLADDER W CHRONIC CHOLECYST W/O OBSTRUCTION Status: Acute Qualifiers: Cholelithiasis location: gallbladder and bile duct Plan: s/p lap cholecystectomy POD #2, continue supportive mgmt, OOB, pain control (2) COPD (chronic obstructive pulmonary disease) Status: Chronic Qualifiers: COPD type: chronic bronchitis Plan: Continue Duonebs, O2 PRN, Dulera/Singulair (3) BPH (benign prostatic hyperplasia) Code(s): N40.0 - BENIGN PROSTATIC HYPERPLASIA WITHOUT LOWER URINRY TRACT SYMP Status: Chronic Qualifiers: Lower urinary tract symptom presence: unspecified whether lower urinary tract symptoms present Qualified Code(s): N40.0 - Benign prostatic hyperplasia without lower urinary tract symptoms Plan: Continue Hytrin (4) CAD (coronary artery disease) Code(s): I25.10 - ATHSCL HEART DISEASE OF [place] CORONARY ARTERY W/O ANG PCTRS Status: Chronic Qualifiers: Coronary Disease-Associated Artery/Lesion type: [place] artery [place] vs. 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
[2019-09-02] MEDS: Terazosin HCl 5 MG CAP PO SCH (22:04)
[2019-09-02] MEDS: Montelukast Sodium 10 mg Tablet PO SCH (22:05)
[2019-09-02] MEDS: Atorvastatin Calcium 10 MG TAB PO SCH (22:05)
[2019-09-02] MEDS: Latanoprost 0.005% Ophth Soln 2.5 ml Bottle EA EYE SCH (22:22)
[2019-09-03] MEDS: guaiFENesin ER 600 MG TAB PO PRN ×3 (01:29→21:44)
[2019-09-03] MEDS: Ibuprofen 600 MG TAB PO PRN ×3 (01:30→21:42)
[2019-09-03] MEDS: Mometasone/Formoterol 120 PUFF INHALER INH SCH ×2 (07:48→18:21)
[2019-09-03] MEDS: Ipratropium Bromide 2.5 ml Neb NEB SCH ×4 (07:49→20:18)
[2019-09-03] MEDS: Albuterol Sulfate 2.5 mg/3 ml Neb NEB SCH ×3 (07:49→18:18)
[2019-09-03] MEDS: Gabapentin 300 MG CAP PO SCH ×3 (09:07→21:38)
[2019-09-03] MEDS: Acetaminophen 500 MG TAB PO PRN ×2 (09:07→21:42)
[2019-09-03] MEDS: Cyanocobalamin (Vitamin B-12) 1,000 MCG TAB PO SCH (09:07)
[2019-09-03] MEDS: FLUoxetine HCl 20 MG CAP PO SCH (09:07)
[2019-09-03] MEDS: Thiamine 100 MG TAB PO SCH (09:08)
[2019-09-03] MEDS: Folic Acid 1 MG TAB PO SCH (09:08)
[2019-09-03] MEDS: Aspirin 81 mg Enteric Coated Tablet PO SCH (09:08)
[2019-09-03] MEDS: Dorzolamide HCl 2% Ophth Soln 10 ml Bottle EA EYE SCH ×3 (09:08→22:59)
[2019-09-03] MEDS: Brimonidine Tartrate 0.2% Ophth Soln 5 ml Bottle EA EYE SCH ×3 (09:08→22:58)
[2019-09-03] MEDS: Docusate 100 MG CAP PO SCH (09:08)
[2019-09-03] MEDS: Dutasteride 0.5 MG CAP PO SCH (09:09)
[2019-09-03] MEDS: Oxybutynin ER 5 MG TAB PO SCH (09:09)
[2019-09-03] MEDS: Enoxaparin Sodium 40 MG/0.4 ML SYRINGE SC SCH (09:17)
[2019-09-03] MEDS ORDERED: Guaifenesin DM 100-10/5 ML UDCUP PO PRN (09:35)
--- NOTE | 2019-09-03 09:38 | PDOC.HOSPP ---
- Subjective Encounter Date: 09/03/19 Encounter Time: 09:30 Subjective: f/u for cholelithiasis/cholecystitis s/p lap grecia POD #3. c/o non-productive cough and SOB and remains on O2 @ 2L/min NC. Abd pain improved and had a BM this am. - Objective Vital Signs & Weight: Vital Signs (12 hours) Temp Pulse Resp BP BP Pulse Ox 09/03/19 07:46 78 20 96 09/03/19 07:14 98.7 F 75 16 97/54 L 95 09/03/19 04:00 111/68 09/03/19 03:26 98.2 F 81 16 111/68 93 L 09/03/19 01:30 96 09/03/19 01:29 99.3 F 86 19 120/66 120/66 96 09/02/19 23:16 99.2 F 91 16 100/59 L 94 L 09/02/19 22:49 93 22 H 97 09/02/19 21:57 76 108/57 L Weight Weight 140 lb I&O: 09/02/19 09/03/19 09/04/19 06:59 06:59 06:59 Intake Total 240 1102 Balance 240 1102 Result Diagrams: 09/01/19 05:13 09/01/19 05:13 Hospitalist ROS - Medication Medications: Active Medications Generic Name Dose Route Start Last Admin Trade Name Freq PRN Reason Stop Dose Admin Acetaminophen 1,000 mg 08/31/19 14:58 09/03/19 09:07 Tylenol PO 1,000 mg Q6H PRN Administration Moderate to Severe Pain (6-10) Albuterol Sulfate 2.5 mg 08/31/19 18:30 09/03/19 07:49 Ventolin NEB Not Given TID-RT ONEYDA Albuterol/Ipratropium 3 ml 08/30/19 19:00 09/03/19 07:46 Duoneb NEB 3 ml [id number] ONEYDA Administration Aspirin 81 mg 09/01/19 09:00 09/03/19 09:08 Ecotrin PO 81 mg DAILY ONE[facility] Administration Atorvastatin Calcium 10 mg 08/28/19 21:00 09/02/19 22:05 Lipitor PO 10 mg HS ONEYDA Administration Brimonidine Tartrate 1 drop 08/31/19 21:00 09/03/19 09:08 Alphagan 0.2% Ophth Soln EA EYE 1 drop TID ONEYDA Administration Cholecalciferol 2,000 units 09/01/19 09:00 09/03/19 09:07 Vitamin D3 PO 2,000 units DAILY ONE[facility]DA Administration Cyanocobalamin 1,000 mcg 09/01/19 09:00 09/03/19 09:07 Vitamin B-12 PO 1,000 mcg DAILY ONE[facility] Administration Diltiazem HCl 30 mg 08/28/19 21:00 09/03/19 09:09 Cardizem PO Not Given TID ONEYDA Docusate Sodium 100 mg 08/29/19 09:00 09/03/19 09:08 Colace PO 100 mg DAILY [facility] Administration Dorzolamide HCl 1 drop 08/31/19 21:00 09/03/19 09:08 Trusopt 2% Ophth Soln EA EYE 1 drop TID ONEYDA Administration Dutasteride 0.5 mg 08/29/19 09:00 09/03/19 09:09 Avodart PO 0.5 mg DAILY [facility] Administration Enoxaparin Sodium 40 mg 08/29/19 09:00 09/03/19 09:17 Lovenox SC 40 mg 0900 ONEYDA Administration Fluoxetine HCl 20 mg 09/01/19 09:00 09/03/19 09:07 Prozac PO 20 mg DAILY ONE[facility]DA Administration Folic Acid 1 mg 09/01/19 09:00 09/03/19 09:08 Folvite PO 1 mg DAILY ONE[facility] Administration Gabapentin 300 mg 08/28/19 21:00 09/03/19 09:07 Neurontin PO 300 mg TID ONEYDA Administration Guaifenesin 600 mg 08/30/19 17:07 09/03/19 09:07 Mucinex PO 600 mg BIDPRN PRN Administration Cough Ibuprofen 600 mg 08/31/19 14:58 09/03/19 09:07 Motrin PO 600 mg Q6H PRN Administration Pain Ipratropium [place] 2.5 ml 08/31/19 19:00 09/03/19 07:49 Atrovent NEB Not Given [id number] ONEYDA Latanoprost 1 drop 08/28/19 21:00 09/02/19 22:22 Xalatan 0.005% Ophth Soln EA EYE 1 drop HS ONEYDA Administration Mometasone Furoate/Formoterol Fumar 2 puff 08/31/19 18:30 09/03/19 07:48 Dulera 200 Mcg/5 Mcg Inhaler INH 2 puff BID-RT ONEYDA Administration Montelukast Sodium 10 mg 08/31/19 21:00 09/02/19 22:05 Singulair PO 10 mg HS ONEYDA Administration Oxybutynin Chloride 5 mg 09/01/19 09:00 09/03/19 09:09 Ditropan Xl PO 5 mg DAILY ONEYDA Administration Pantoprazole Sodium 40 mg 08/31/19 21:00 09/03/19 09:07 Protonix PO 40 mg BID ONEYDA Administration Terazosin HCl 10 mg 08/31/19 21:00 09/02/19 22:04 Hytrin PO 10 mg HS ONEYDA Administration Thiamine HCl 100 mg 09/01/19 09:00 09/03/19 09:08 Thiamine PO 100 mg DAILY ONEYDA Administration Tramadol HCl 50 mg 08/31/19 14:58 09/02/19 23:31 Ultram PO 50 mg Q4H PRN Administration Moderate Pain (4-6) - Exam General Appearance: NAD, awake alert Eye: PERRL, anicteric sclera ENT: normocephalic atraumatic, no oropharyngeal lesions Neck: supple, symmetric, no JVD, no thyromegaly, no lymphadenopathy Heart: RRR, no murmur, no gallops, no rubs, normal peripheral pulses Heart - other findings: S1, S2 Respiratory - other findings: few coarse sounds and diminished in bases, occ wheeze Gastrointestinal: soft, non-distended, normal bowel sounds, no palpable masses Extremities: no cyanosis, no clubbing, no edema Skin: normal turgor, no lesions Neurological: cranial nerve grossly intact, normal sensation to touch, no new deficit Musculoskeletal: normal tone, normal strength Psychiatric: normal affect, A&O x 3 Hosp A/P (1) Cholecystitis with cholelithiasis Code(s): K80.10 - CALCULUS OF GALLBLADDER W CHRONIC CHOLECYST W/O OBSTRUCTION Status: Acute Qualifiers: Cholelithiasis location: gallbladder and bile duct Plan: s/p lap grecia POD #3, continue supportive mgmt, OOB/ambulate (2) COPD (chronic obstructive pulmonary disease) Status: Chronic Qualifiers: COPD type: chronic bronchitis Plan: Remains on O2 @ 2L/min NC, continue Duonebs, add Robitussin DM, Incentive spirometer (3) BPH (benign prostatic hyperplasia) Code(s): N40.0 - BENIGN PROSTATIC HYPERPLASIA WITHOUT LOWER URINRY TRACT SYMP Status: Chronic Qualifiers: Lower urinary tract symptom presence: unspecified whether lower urinary tract symptoms present Qualified Code(s): N40.0 - Benign prostatic hyperplasia without lower urinary tract symptoms (4) CAD (coronary artery disease) Code(s): I25.10 - ATHSCL HEART DISEASE OF [place] CORONARY ARTERY W/O ANG PCTRS Status: Chronic Qualifiers: Coronary Disease-Associated Artery/Lesion type: [place] artery [place] vs. transplanted heart: [place] heart Associated angina: without angina Qualified Code(s): I25.10 - Atherosclerotic heart disease of [place] coronary artery without angina pectoris - Plan PT/OT, aids social worker, respiratory therapy, out of bed/ambulate, DVT proph w/ SCDs Stable currently Continue supportive mgmt Wean O2 as tolerated Skye FOSTER Continue Kevin Clark Dulera OOB/ambulate PCXR today Likely home in am
--- NOTE | 2019-09-03 10:21 | RAD ---
Chest one view HISTORY: Dyspnea. COPD. COMPARISON: 04/10/2019. FINDINGS: Cardiac silhouette is unremarkable. Pulmonary vasculature upper limits of normal. Mediastinum is midline with aortic calcification. Slight elevation right hemidiaphragm is present wit h mild atelectasis at the right lung base. Diffuse, symmetric in widespread reticulonodular interstitial prominence is unchanged. No lobar consolidation or evidence of pneumothorax. IMPRESSION: Mild linear atelectasis right lung base. Widespread reticulonodular interstitial thickening is unchanged from the prior exam 2019. No active p ulmonary abnormalities are reliably demonstrated. Atherosclerosis.
[2019-09-03] MEDS: Atorvastatin Calcium 10 MG TAB PO SCH (21:38)
[2019-09-03] MEDS: Montelukast Sodium 10 mg Tablet PO SCH (21:38)
[2019-09-03] MEDS: Terazosin HCl 5 MG CAP PO SCH (21:39)
[2019-09-03] MEDS: traMADol HCl 50 MG TAB PO PRN (21:42)
[2019-09-03] MEDS: Latanoprost 0.005% Ophth Soln 2.5 ml Bottle EA EYE SCH (22:57)
[2019-09-04] MEDS: Mometasone/Formoterol 120 PUFF INHALER INH SCH (07:02)
[2019-09-04] MEDS: Albuterol Sulfate 2.5 mg/3 ml Neb NEB SCH (07:03)
[2019-09-04] MEDS: Ipratropium Bromide 2.5 ml Neb NEB SCH (07:04)
[2019-09-04] MEDS: Dorzolamide HCl 2% Ophth Soln 10 ml Bottle EA EYE SCH (09:04)
[2019-09-04] MEDS: Gabapentin 300 MG CAP PO SCH (09:06)
[2019-09-04] MEDS: Dutasteride 0.5 MG CAP PO SCH (09:06)
[2019-09-04] MEDS: FLUoxetine HCl 20 MG CAP PO SCH (09:06)
[2019-09-04] MEDS: Docusate 100 MG CAP PO SCH (09:06)
[2019-09-04] MEDS: Oxybutynin ER 5 MG TAB PO SCH (09:06)
[2019-09-04] MEDS: Aspirin 81 mg Enteric Coated Tablet PO SCH (09:06)
[2019-09-04] MEDS: Thiamine 100 MG TAB PO SCH (09:06)
[2019-09-04] MEDS: Folic Acid 1 MG TAB PO SCH (09:06)
[2019-09-04] MEDS: Cyanocobalamin (Vitamin B-12) 1,000 MCG TAB PO SCH (09:07)
[2019-09-04] MEDS: Enoxaparin Sodium 40 MG/0.4 ML SYRINGE SC SCH (09:09)
[2019-09-04] MEDS: Brimonidine Tartrate 0.2% Ophth Soln 5 ml Bottle EA EYE SCH (09:09)
[2019-09-04] MEDS: traMADol HCl 50 MG TAB PO PRN (10:09)
[2019-09-04] MEDS: Ibuprofen 600 MG TAB PO PRN (10:10)
[2019-09-04 11:23] VITALS: BP 102/59; TEMP 98.8
--- NOTE | 2019-09-04 11:23 | DIS ---
DATE OF ADMISSION: 08/28/2019 DATE OF DISCHARGE: 09/04/2019 DISCHARGE DIAGNOSES: 1. Cholecystitis with cholelithiasis. 2. Status post laparoscopic cholecystectomy on 08/31/2019. 3. Chronic obstructive pulmonary disease. 4. Benign prostatic hyperplasia. 5. Coronary artery disease, chronic and stable. CONSULTATIONS: 1. Dr. Rivera with General Surgery Service. 2. Dr. Lagunas with Pulmonology Service. 3. Dr. Barrientos with GI Service. PERTINENT LABORATORY AND X-RAY FINDINGS: AST ranged between 16 to 113, ALT ranged between 11 to 68, total bilirubin ranged between 0.3 to 0.6. Lipase 12. CBC showed a white blood cell count ranging between 8.3 to 8.9, hemoglobin ranged between 11.[address] of the chest with dissection protocol dated 08/28/2019, showed distention of the gallbladder, common bile duct, and pancreatic duct. Common bile duct measuring 1.0 cm. Partial obstruction of ampullary stone suspected. ERCP dated 08/29/2019, showed normal-appearing ampulla without evidence of mass effect. Cannulation unsuccessful of the pancreatic or common bile duct with multiple attempts with sphincterotome. Abdominal MRI dated 08/29/2019, showed mildly hydropic gallbladder with moderate extrahepatic and mild intrahepatic biliary ductal dilation. No evidence of intraluminal stone. Hepatobiliary scan dated 08/30/2019, showed chronic cholecystitis/gallbladder dyskinesia. 2D transthoracic echocardiogram dated 08/30/2019, showed ejection fraction of 55% to 60%. Diastolic dysfunction noted. Cardiolite stress test dated 08/31/2019, showed normal myocardial perfusion scan. Ejection fraction of 62%. HOSPITAL COURSE: The patient initially presented complaining of back and right upper quadrant pain. The patient with significant history of chronic obstructive pulmonary disease, hypertension, and coronary artery disease. The patient underwent extensive evaluation including GI evaluation with CT imaging showing evidence of biliary ductal dilation. GI consult recommended undergoing ERCP, which the patient underwent successfully without evidence of obstructive process. However, after multiple attempts, cannulation of the pancreatic duct and common bile duct were unsuccessful. The patient was evaluated by the General Surgery Service and recommended for laparoscopic cholecystectomy, which was performed on 08/31/2019, with intraoperative cholangiogram showing no filling defects with prompt drainage. The patient overall remained clinically stable postoperatively without clinical decompensation. The patient resumed his regular home medications and remained clinically stable. I have examined the patient at the time of discharge and discussed followup instructions. The patient verbalizes understanding and in agreement and ready for discharge on 09/04/2019. DISCHARGE MEDICATIONS: 1. ProAir HFA 2 puffs inhaled q.4 hours p.r.n. 2. Albuterol sulfate 2.5 mg nebulized t.i.d. 3. Enteric-coated aspirin 81 mg p.o. daily. 4. Brimonidine 0.15%/2% one drop to each eye t.i.d. 5. Vitamin D3 of 2000 units p.o. daily. 6. Vitamin B12 of 1000 mcg p.o. daily. 7. Dutasteride 0.5 mg p.o. daily. 8. Prozac 20 mg p.o. daily. 9. Advair Diskus one puff inhaled b.i.d. 10. Folic acid 1 mg p.o. daily. 11. Gabapentin 300 mg p.o. t.i.d. 12. Xalatan 0.005% one drop to each eye at bedtime. 13. Singulair 10 mg p.o. at bedtime. 14. Ditropan XL 5 mg p.o. daily. 15. Protonix 40 mg p.o. b.i.d. 16. Zocor 20 mg p.o. at bedtime. 17. Terazosin 10 mg p.o. daily. 18. Thiamine 100 mg p.o. daily. 19. Spiriva HandiHaler 18 mcg inhaled daily. 20. Diltiazem CD 30 mg p.o. t.i.d. FOLLOWUP: The patient may follow up with his primary care provider at the [facility]. The patient will follow up with Dr. Manolo Rivera in 2 to 3 weeks after discharge. CONDITION ON DISCHARGE: Stable. ACTIVITY: Ad-amadeo. DIET: Heart healthy. CODE STATUS: Do not attempt resuscitation. DISPOSITION: Home on 09/04/2019. TIME SPENT: Total time in preparing and coordinating discharge, 34 minutes. Job ID: [id number]
[2019-09-04] MEDS ORDERED: PROVENTIL INHALER 6.7 G (200 INHALATIONS) INH PRN (11:27)
== END 2019-09-04 14:56 | disposition home or self-care (01) | DRG 419 ==
LOC: ERS 04:07 → SJJU 14:30
PROVIDERS: ADMIT Internal Medicine; ATTEND Internal Medicine
PROC: 0DJ08ZZ Inspection of Upper Intestinal Tract, Via Natural or Artificial Opening Endoscopic (ICD-10-PCS; principal; 2019-08-29)
PROC: 0FT44ZZ Resection of Gallbladder, Percutaneous Endoscopic Approach (ICD-10-PCS; 2019-08-31)
PROC: BF131ZZ Fluoroscopy of Gallbladder and Bile Ducts using Low Osmolar Contrast (ICD-10-PCS; 2019-08-31)
DX: K80.10 Calculus of gallbladder with chronic cholecystitis without obstruction (principal); N40.0 Benign prostatic hyperplasia without lower urinary tract symptoms; I25.10 Atherosclerotic heart disease of native coronary artery without angina pectoris; G89.29 Other chronic pain; E78.5 Hyperlipidemia, unspecified; D64.9 Anemia, unspecified; K21.9 Gastro-esophageal reflux disease without esophagitis; J45.909 Unspecified asthma, uncomplicated; F10.10 Alcohol abuse, uncomplicated; F41.9 Anxiety disorder, unspecified; K82.8 Other specified diseases of gallbladder; F31.9 Bipolar disorder, unspecified; J44.9 Chronic obstructive pulmonary disease, unspecified; F17.210 Nicotine dependence, cigarettes, uncomplicated; I48.0 Paroxysmal atrial fibrillation; Z79.01 Long term (current) use of anticoagulants
CPT/HCPCS: 36415; 47532; 51701; 71045; 71275; 72191; 74175; 74181; 76000; 78227; 78452; 80053; 81003; 83690; 84484; 85025; 88304; 93005; 93017; 93306; 94640; 96374; 96376; A9500; A9537; C1769; J1100; J1610; J1650; J1956; J2001; J2270; J2405; J2704; J2785; J3010; J7620; Q9967; S0020; S0028

== ENCOUNTER 2019-09-10 04:42 | Observation (INO) | payer MEDICARE ==
[2019-09-10 05:07] LABS: #Basophils 0.1 thou/uL (0.0-0.2); #Eosinphils 0.2 thou/uL (0.0-0.7); #Lymphocytes 1.9 thou/uL (1.20-3.40); #Monocytes 1.8 thou/uL (0.11-0.59); %Eosinophils 1.8 % (0.0-10.0); %Lymphocytes 14.3 % (21.0-51.0); %Monocytes 13.8 % (0.0-10.0); %Neutrophils 69.2 % (42.0-75.0); Hemoglobin 11.1 g/dL (14.0-18.0); Mean Corpuscular HGB CONC 32.2 g/dL (32.0-36.0); Mean Corpuscular Hemoglobin 30.5 pg (27.0-31.0); Mean Corpuscular Volume 94.9 fL (78.0-98.0); Mean Platelet Volume 6.2 fL (7.4-10.4); Platelet Count 468 thou/uL (130-400); RBC Distribution Width 13.9 % (11.5-14.5); Red Blood Cell (RBC) Count 3.64 mill/uL (4.70-6.10)
[2019-09-10] MEDS ORDERED: Piperacillin/Tazobactam 3.375 GM VIAL ONE (05:24)
[2019-09-10 05:30] LABS: ALT (SGPT) 21 U/L (8-55); AST (SGOT) 24 U/L (5-34); Albumin 3.7 g/dL (3.4-4.8); Alkaline Phosphatase 151 U/L (40-110); Anion Gap 14 mmol/L (10-20); BUN (Urea Nitrogen) 11 mg/dL (8.4-25.7); Bilirubin, Total 0.4 mg/dL (0.2-1.2); Calc. Creatinine Clearance 0 mL/min (70-130); Calcium 9.3 mg/dL (7.8-10.44); Carbon Dioxide 23 mmol/L (23-31); Chloride 106 mmol/L (98-107); Estimated GFR-MDRD 61; Globulin 3.7 g/dL (2.4-3.5); Glucose 109 mg/dL (83-110); Potassium 3.8 mmol/L (3.5-5.1); Protein, Total 7.4 g/dL (5.8-8.1); Sodium 139 mmol/L (136-145)
[2019-09-10] MEDS ORDERED: Morphine 4 MG/ML VIAL ONE (06:04)
[2019-09-10] MEDS ORDERED: Ondansetron PF 4 MG/2 ML Vial ONE (06:05)
[2019-09-10] MEDS ORDERED: methylPREDNISolone Sod Succ/PF 125 MG/2 ML VIAL ONE (06:05)
[2019-09-10] MEDS ORDERED: Morphine 2 MG/ML SYRINGE SLOW IVP PRN (08:00)
--- NOTE | 2019-09-10 09:01 | RAD ---
Exam: Chest one view HISTORY:COPD. Atrial fibrillation. Pain. Comparison: 09/03/2019 FINDINGS: Cardiac silhouette: Normal Aorta: Atherosclerosis of the aorta Pulmonary vessels: Normal Costophrenic angles: Minimal blunting of both costophrenic angles suggesting bibasilar atelectasis or small effusions LUNGS: Hyperinflation with chronic changes. No masses or consolidation. Pneumothorax: None Osseous abnormalities: None IMPRESSION: 1. COPD. Hyperinflation. 2. Blunting of costophrenic angles due to small effusion or atelectasis.
--- NOTE | 2019-09-10 10:05 | CT ---
PRELIMINARY REPORT/[facility]/EMERGENCY AFTER HOURS PROCEDURE: History: SOB and back pain. CTA chest with 100 cc Isovue-370 IV contrast. Comparison: 08/28/2019. Findings: Atherosclerotic thoracic aorta without aneurysm or dissection. The heart is mildly promine nt in size. Coronary artery disease. No pericardial effusion. Shotty mediastinal lymph nodes. Jarrod cified right hilar lymph nodes. Evaluation the pulmonary arteries is limited by motion artifact. No definite evidence of PE. Moderate diffuse mixed centrilobular and paraseptal emphysema. Dependent atelectatic changes. Lingu lar subsegmental atelectasis. No focal consolidation or pleural effusion. Visualized upper abdominal structures are unremarkable. Foci of gas in the subcutaneous tissues of t he lower anterior abdominal wall. Osteopenia. Chronic compression fractures of T7, L1 and L2. Vert ebroplasty cement at L1. Impression: 1. Within limits of motion artifact, no definite evidence of PE. 2. Moderate diffuse emphysema. 3. Prominent heart size with coronary artery disease. 4. Foci of subcutaneous gas in the lower anterior abdominal wall of uncertain significance. Correla te with exam. 5. Multiple thoracolumbar compression deformities again noted. ELECTRONICALLY SIGNED BY: Alistair Diaz MD Sep 10, 2019 5:59:37 AM CDT This report is intended for review by the ordering physician only, in accordance of law. If you recei ve this report in error, please call [facility] at [phone]. FINAL REPORT CT ANGIO CHEST PERFORMED WITH IV CONTRAST ENHANCEMENT WITH 3D RECONSTRUCTIONS: HISTORY: Shortness of breath and back pain. COMPARISON: 08/28/2019 examination. FINDINGS: Once again, severe chronic emphysematous lung changes are seen. There is no confluent infiltrative pr ocess present. Motion artifact does degrade detail. The thoracic aorta is tortuous. The descending thoracic aorta minimally dilated at 3.2 cm. The ascend ing aorta is also approximately 3.2 cm. There is no significant mediastinal or hilar adenopathy. Ther e is fairly good pulmonary artery opacification. Respiratory motion does degrade detail for the more subsegmental portions of the lower lobe pulmonary arteries, but no CT evidence for pulmonary embolus. The visualized liver parenchyma shows hypodensities within the liver most compatible with cysts. Subc utaneous air noted is probably related to the patient's fairly recent cholecystectomy. Partially visu alized hypodensities involving the kidneys are most likely cysts. IMPRESSION: 1. Severe emphysematous lung change. 2. No CT evidence for pulmonary embolus. Report in agreement with the preliminary report issued by [facility]. POS: TPC
[2019-09-10] MEDS ORDERED: Iopamidol 370 76% 100 ML VIAL ONE (15:11)
--- NOTE | 2019-09-10 16:09 | PDOC.HHP ---
Hospitalist HPI - History of Present Illness SOB History of Present Illness: This is an 89-year-old male with history of coronary artery disease, hypertension, hyperlipidemia, GERD, and COPD who presented to the hospital with complaints of worsening shortness of breath and productive cough over the past week. His symptoms gotten to the point where he is short of breath at rest. Hospitalist ROS - Review of Systems All other systems reviewed; all pertinent +/- noted in HPI/Subj - Medication Medications: Active Medications Generic Name Dose Route Start Last Admin Trade Name Freq PRN Reason Stop Dose Admin Albuterol/Ipratropium 3 ml 09/10/19 14:30 09/10/19 14:00 Duoneb NEB 3 ml [id number] ONEYDA Administration Levofloxacin 750 mg/ Device 150 mls @ 100 mls/hr 09/10/19 14:00 09/10/19 14: 13 IVPB 150 mls Q24HR ONEYDA Administration Hospitalist History - Past Medical History Cardiac: reports: CAD, HTN, Hyperlipidemia Pulmonary: reports: COPD Gastrointestinal: reports: GERD Renal/: reports: Benign prostatic enlarg. - Exam General Appearance: awake alert ENT: normocephalic atraumatic Neck: supple, no JVD Heart: RRR, no murmur, no gallops, no rubs, normal peripheral pulses Respiratory: tachypneic, wheezes Gastrointestinal: soft, non-tender, non-distended, normal bowel sounds Neurological: cranial nerve grossly intact, no focal deficits Hospitalist Results - Labs Result Diagrams: 09/10/19 04:54 09/10/19 04:54 Lab results: WBC 13.0 thou/uL (4.8-10.8) H 09/10/19 04:54 Hgb 11.1 g/dL (14.0-18.0) L 09/10/19 04:54 Hct 34.5 % (42.0-52.0) L 09/10/19 04:54 MCV 94.9 fL (78.0-98.0) 09/10/19 04:54 Plt Count 468 thou/uL (130-400) H 09/10/19 04:54 Neutrophils % 69.2 % (42.0-75.0) 09/10/19 04:54 Sodium 139 mmol/L (136-145) 09/10/19 04:54 Potassium 3.8 mmol/L (3.5-5.1) 09/10/19 04:54 Chloride 106 mmol/L (98-107) 09/10/19 04:54 Carbon Dioxide 23 mmol/L (23-31) 09/10/19 04:54 BUN 11 mg/dL (8.4-25.7) 09/10/19 04:54 Creatinine 1.35 mg/dL (0.7-1.3) H 09/10/19 04:54 Glucose 109 mg/dL (83-110) 09/10/19 04:54 Lactic Acid 1.1 mmol/L (0.5-2.2) 09/10/19 05:23 Calcium 9.3 mg/dL (7.8-10.44) 09/10/19 04:54 Total Bilirubin 0.4 mg/dL (0.2-1.2) 09/10/19 04:54 AST 24 U/L (5-34) 09/10/19 04:54 ALT 21 U/L (8-55) 09/10/19 04:54 Alkaline Phosphatase 151 U/L (40-110) H 09/10/19 04:54 Troponin I Less than 0.010 ng/mL (< 0.028) 09/10/19 04:54 B-Natriuretic Peptide 212.1 pg/mL (0-100) H 09/10/19 04:54 Serum Total Protein 7.4 g/dL (5.8-8.1) 09/10/19 04:54 Albumin 3.7 g/dL (3.4-4.8) 09/10/19 04:54 Hospitalist H&P A/P - Problem (1) COPD exacerbation Code(s): J44.1 - CHRONIC OBSTRUCTIVE PULMONARY DISEASE W (ACUTE) EXACERBATION Status: Acute (2) BPH (benign prostatic hyperplasia) Code(s): N40.0 - [place]EN[place] PROSTATIC HYPERPLASIA WITHOUT LOWER URINRY TRACT SYMP Status: Chronic Qualifiers: Lower urinary tract symptom presence: unspecified whether lower urinary tract symptoms present Qualified Code(s): N40.0 - Benign prostatic hyperplasia without lower urinary tract symptoms (3) CAD (coronary artery disease) Code(s): I25.10 - ATHSCL HEART DISEASE OF [place] CORONARY ARTERY W/O ANG PCTRS Status: Chronic Qualifiers: Coronary Disease-Associated Artery/Lesion type: [place] artery [place] vs. transplanted heart: [place] heart Associated angina: without angina Qualified Code(s): I25.10 - Atherosclerotic heart disease of [place] coronary artery without angina pectoris - Plan Plan: The patient is admitted for COPD exacerbation. Start scheduled nebulizer treatments, IV corticosteroids, and IV antibiotics and monitor his response.
[2019-09-10] MEDS: methylPREDNISolone Sod Succ 40 MG VIAL IVP SCH ×2 (17:38→23:01)
[2019-09-10] MEDS ORDERED: FLU VACC TS2019-20(65YR UP)/PF 180 MCG/0.5 ML SYRINGE IM ONE (18:00)
[2019-09-10] MEDS ORDERED: Prevnar 13-Val Conj/PF 0.5 ML SYRINGE IM ONE (18:00)
[2019-09-10] MEDS ORDERED: Gabapentin 300 MG CAP PO SCH (21:45)
[2019-09-11 04:47] LABS: Hemoglobin 9.7 g/dL (14.0-18.0); Lymphocytes 9 % (21-51); MDiff Complete? YES; Mean Corpuscular HGB CONC 32.5 g/dL (32.0-36.0); Mean Corpuscular Hemoglobin 30.3 pg (27.0-31.0); Mean Corpuscular Volume 93.1 fL (78.0-98.0); Mean Platelet Volume 6.5 fL (7.4-10.4); Monocytes 8 % (0-10); Neutrophil 83 % (42-75); Platelet Count 431 thou/uL (130-400); Platelet Morphology Comment Appears Adequate; White Blood Cell (WBC) Count 10.9 thou/uL (4.8-10.8)
[2019-09-11 04:58] LABS: Anion Gap 12 mmol/L (10-20); BUN (Urea Nitrogen) 13 mg/dL (8.4-25.7); Calc. Creatinine Clearance 45 mL/min (70-130); Calcium 9.3 mg/dL (7.8-10.44); Carbon Dioxide 23 mmol/L (23-31); Chloride 106 mmol/L (98-107); Estimated GFR-MDRD 77; Glucose 125 mg/dL (83-110); Potassium 4.2 mmol/L (3.5-5.1); Sodium 137 mmol/L (136-145)
[2019-09-11] MEDS: methylPREDNISolone Sod Succ 40 MG VIAL IVP SCH ×3 (05:17→17:49)
[2019-09-11] MEDS ORDERED: DORZOLAMIDE OP SCH (09:00)
[2019-09-11] MEDS ORDERED: [UNRECOGNIZED DRUG - OTHER] OP SCH (09:00)
[2019-09-11] MEDS ORDERED: BRIMONIDINE OP SCH (09:00)
[2019-09-11] MEDS: Brimonidine Tartrate 0.2% Ophth Soln 5 ml Bottle EA EYE SCH ×3 (09:03→21:08)
[2019-09-11] MEDS: Enoxaparin Sodium 40 MG/0.4 ML SYRINGE SC SCH (09:05)
[2019-09-11] MEDS: Gabapentin 300 MG CAP PO SCH ×3 (09:05→21:06)
[2019-09-11] MEDS: Dorzolamide HCl 2% Ophth Soln 10 ml Bottle EA EYE SCH ×3 (09:13→21:07)
--- NOTE | 2019-09-11 16:06 | PDOC.HOSPP ---
- Subjective Encounter Date: 09/11/19 Subjective: Feels somewhat better. - Objective Vital Signs & Weight: Vital Signs (12 hours) Temp Pulse Pulse Pulse Resp BP BP 09/11/19 15:13 98.9 F 80 20 09/11/19 14:00 82 112 H 108/64 152/90 H 09/11/19 13:46 75 16 09/11/19 11:15 98.9 F 81 20 09/11/19 10:43 75 16 09/11/19 07:42 73 16 09/11/19 07:30 98.8 F 76 16 BP Pulse Ox Pulse Ox Pulse Ox Pulse Ox 09/11/19 15:13 118/59 L 92 L 09/11/19 14:00 92 L 83 L 90 L 09/11/19 13:46 96 09/11/19 11:15 123/61 94 L 09/11/19 10:43 97 09/11/19 07:42 99 09/11/19 07:30 148/73 H 98 Weight Weight 145 lb 14.4 oz I&O: 09/10/19 09/11/19 09/12/19 06:59 06:59 06:59 Intake Total 770 Output Total 400 Balance 370 Result Diagrams: 09/11/19 04:27 09/11/19 04:27 Hospitalist ROS - Medication Medications: Active Medications Generic Name Dose Route Start Last Admin Trade Name Freq PRN Reason Stop Dose Admin Albuterol/Ipratropium 3 ml 09/10/19 14:30 09/11/19 13:46 Duoneb NEB 3 ml [id number] ONEYDA Administration Brimonidine Tartrate 0 drop 09/11/19 09:00 09/11/19 14:44 Alphagan 0.2% Ophth Soln EA EYE 1 drop TID ONEYDA Administration Diltiazem HCl 30 mg 09/11/19 09:00 09/11/19 14:46 Cardizem PO 30 mg TID ONEYDA Administration Dorzolamide HCl 0 drop 09/11/19 09:00 09/11/19 14:51 Trusopt 2% Ophth Soln EA EYE 1 drop TID ONEYDA Administration Enoxaparin Sodium 40 mg 09/11/19 09:00 09/11/19 09:05 Lovenox SC 40 mg 0900 ONEYDA Administration Gabapentin 300 mg 09/11/19 09:00 09/11/19 14:46 Neurontin PO 300 mg TID ONEYDA Administration Levofloxacin 750 mg/ Device 150 mls @ 100 mls/hr 09/10/19 14:00 09/11/19 13: 06 IVPB 150 mls Q24HR ONEYDA Administration Methylprednisolone Sodium Succinate 40 mg 09/10/19 18:00 09/11/19 13:05 Solu-Medrol IVP 40 mg Q6HR ONEYDA Administration Pantoprazole Sodium 40 mg 09/11/19 09:00 09/11/19 09:05 Protonix PO 40 mg BID ONEYDA Administration - Exam General Appearance: awake alert Eye: PERRL ENT: normocephalic atraumatic Neck: supple, no JVD Heart: RRR Respiratory: rhonchi Gastrointestinal: soft, non-tender, non-distended Hosp A/P (1) COPD exacerbation Code(s): J44.1 - CHRONIC OBSTRUCTIVE PULMONARY DISEASE W (ACUTE) EXACERBATION Status: Acute (2) BPH (benign prostatic hyperplasia) Code(s): N40.0 - BENIGN PROSTATIC HYPERPLASIA WITHOUT LOWER URINRY TRACT SYMP Status: Chronic Qualifiers: Lower urinary tract symptom presence: unspecified whether lower urinary tract symptoms present Qualified Code(s): N40.0 - Benign prostatic hyperplasia without lower urinary tract symptoms (3) CAD (coronary artery disease) Code(s): I25.10 - ATHSCL HEART DISEASE OF [place] CORONARY ARTERY W/O ANG PCTRS Status: Chronic Qualifiers: Coronary Disease-Associated Artery/Lesion type: [place] artery [place] vs. transplanted heart: [place] heart Associated angina: without angina Qualified Code(s): I25.10 - Atherosclerotic heart disease of [place] coronary artery without angina pectoris - Plan Respiratory status slightly improving. Continue nebulizer treatments, antibiotics, and corticosteroids.
[2019-09-11] MEDS: Latanoprost 0.005% Ophth Soln 2.5 ml Bottle EA EYE SCH (21:04)
[2019-09-11] MEDS: Montelukast Sodium 10 mg Tablet PO SCH (21:06)
[2019-09-12] MEDS: methylPREDNISolone Sod Succ 40 MG VIAL IVP SCH ×5 (00:52→23:41)
[2019-09-12 04:56] LABS: Anion Gap 11 mmol/L (10-20); BUN (Urea Nitrogen) 15 mg/dL (8.4-25.7); Calc. Creatinine Clearance 43 mL/min (70-130); Calcium 9.3 mg/dL (7.8-10.44); Carbon Dioxide 24 mmol/L (23-31); Chloride 105 mmol/L (98-107); Estimated GFR-MDRD 75; Glucose 135 mg/dL (83-110); Potassium 3.9 mmol/L (3.5-5.1); Sodium 136 mmol/L (136-145)
[2019-09-12 05:08] LABS: Band 1 % (5-11); Hemoglobin 9.7 g/dL (14.0-18.0); Hypochromia SLIGHT = 6-15 cells (100X) (0-5/hpf); Lymphocytes 6 % (21-51); MDiff Complete? YES; Mean Corpuscular HGB CONC 32.3 g/dL (32.0-36.0); Mean Corpuscular Hemoglobin 30.5 pg (27.0-31.0); Mean Corpuscular Volume 94.3 fL (78.0-98.0); Mean Platelet Volume 6.6 fL (7.4-10.4); Monocytes 3 % (0-10); Neutrophil 90 % (42-75); Platelet Count 457 thou/uL (130-400); Platelet Morphology Comment Appears Increased; RBC Distribution Width 14.3 % (11.5-14.5); Red Blood Cell (RBC) Count 3.17 mill/uL (4.70-6.10)
[2019-09-12] MEDS: Enoxaparin Sodium 40 MG/0.4 ML SYRINGE SC SCH (08:51)
[2019-09-12] MEDS: Gabapentin 300 MG CAP PO SCH ×3 (08:51→20:18)
[2019-09-12] MEDS: Dorzolamide HCl 2% Ophth Soln 10 ml Bottle EA EYE SCH ×3 (08:55→20:18)
[2019-09-12] MEDS: Brimonidine Tartrate 0.2% Ophth Soln 5 ml Bottle EA EYE SCH ×3 (08:55→20:16)
[2019-09-12] MEDS ORDERED: guaiFENesin ER 600 MG TAB PO SCH (09:00)
[2019-09-12] MEDS: guaiFENesin ER 600 MG TAB PO SCH ×2 (11:44→23:40)
--- NOTE | 2019-09-12 14:50 | PDOC.HOSPP ---
- Subjective Encounter Date: 09/12/19 Subjective: The patient remains in significant respiratory destress with minimal activity. He is diffusely wheezing bilaterally on auscultation. He is not requiring O2 at the moment but unable to persue his ADLs due to SOB which is new for him. - Objective Vital Signs & Weight: Vital Signs (12 hours) Temp Pulse Pulse Resp BP BP Pulse Ox 09/12/19 11:40 99.1 F 87 24 H 110/64 97 09/12/19 10:57 87 20 09/12/19 10:30 96 110/69 09/12/19 07:30 99 F 82 16 125/61 100 09/12/19 07:20 90 16 Pulse Ox Pulse Ox 09/12/19 11:40 09/12/19 10:57 09/12/19 10:30 93 L 98 09/12/19 07:30 09/12/19 07:20 Weight Weight 145 lb 14.4 oz I&O: 09/11/19 09/12/19 09/13/19 06:59 06:59 06:59 Intake Total 770 490 480 Output Total 400 500 150 Balance 370 -10 330 Result Diagrams: 09/12/19 04:18 09/12/19 04:18 Hospitalist ROS - Medication Medications: Active Medications Generic Name Dose Route Start Last Admin Trade Name Freq PRN Reason Stop Dose Admin Albuterol/Ipratropium 3 ml 09/10/19 14:30 09/12/19 10:57 Duoneb NEB 3 ml [id number] ONEYDA Administration Brimonidine Tartrate 0 drop 09/11/19 09:00 09/12/19 14:15 Alphagan 0.2% Ophth Soln EA EYE 1 drop TID ONEYDA Administration Diltiazem HCl 30 mg 09/11/19 09:00 09/12/19 14:28 Cardizem PO 30 mg TID ONEYDA Administration Dorzolamide HCl 0 drop 09/11/19 09:00 09/12/19 14:16 Trusopt 2% Ophth Soln EA EYE 1 drop TID ONEYDA Administration Enoxaparin Sodium 40 mg 09/11/19 09:00 09/12/19 08:51 Lovenox SC 40 mg 0900 ONEYDA Administration Gabapentin 300 mg 09/11/19 09:00 09/12/19 14:28 Neurontin PO 300 mg TID ONEYDA Administration Guaifenesin 600 mg 09/12/19 12:00 09/12/19 11:44 Mucinex PO 600 mg 1200,2359 ONEYDA Administration Levofloxacin 750 mg/ Device 150 mls @ 100 mls/hr 09/10/19 14:00 09/12/19 14: 09 IVPB 150 mls Q24HR ONEYDA Administration Latanoprost 1 drop 09/11/19 21:00 09/11/19 21:04 Xalatan 0.005% Ophth Soln EA EYE 1 drop HS ONEYDA Administration Methylprednisolone Sodium Succinate 40 mg 09/10/19 18:00 09/12/19 11:44 Solu-Medrol IVP 40 mg Q6HR ONEYDA Administration Montelukast Sodium 10 mg 09/11/19 21:00 09/11/19 21:06 Singulair PO 10 mg HS ONEYDA Administration Pantoprazole Sodium 40 mg 09/11/19 09:00 09/12/19 08:51 Protonix PO 40 mg BID ONEYDA Administration - Exam General Appearance: awake alert, ill appearing Neck: supple, no JVD Heart: RRR, no murmur, no gallops, no rubs, normal peripheral pulses Respiratory: tachypneic, wheezes Gastrointestinal: soft, non-tender, non-distended, normal bowel sounds Extremities: no cyanosis Neurological: cranial nerve grossly intact, no weakness Hosp A/P (1) COPD exacerbation Code(s): J44.1 - CHRONIC OBSTRUCTIVE PULMONARY DISEASE W (ACUTE) EXACERBATION Status: Acute (2) BPH (benign prostatic hyperplasia) Code(s): N40.0 - BENIGN PROSTATIC HYPERPLASIA WITHOUT LOWER URINRY TRACT SYMP Status: Chronic Qualifiers: Lower urinary tract symptom presence: unspecified whether lower urinary tract symptoms present Qualified Code(s): N40.0 - Benign prostatic hyperplasia without lower urinary tract symptoms (3) CAD (coronary artery disease) Code(s): I25.10 - ATHSCL HEART DISEASE OF [place] CORONARY ARTERY W/O ANG PCTRS Status: Chronic Qualifiers: Coronary Disease-Associated Artery/Lesion type: [place] artery [place] vs. transplanted heart: [place] heart Associated angina: without angina Qualified Code(s): I25.10 - Atherosclerotic heart disease of [place] coronary artery without angina pectoris - Plan The patient remains symptomatic. He is unsafe for home management at is time. Continue nebulizer treatments, IV antibiotics, and IV corticosteroids. PT and OT evaluation
[2019-09-12] MEDS: Montelukast Sodium 10 mg Tablet PO SCH (20:18)
[2019-09-12] MEDS: Latanoprost 0.005% Ophth Soln 2.5 ml Bottle EA EYE SCH (20:18)
[2019-09-13 04:59] LABS: Anion Gap 10 mmol/L (10-20); BUN (Urea Nitrogen) 17 mg/dL (8.4-25.7); Calc. Creatinine Clearance 44 mL/min (70-130); Calcium 9.1 mg/dL (7.8-10.44); Carbon Dioxide 25 mmol/L (23-31); Chloride 106 mmol/L (98-107); Estimated GFR-MDRD 76; Glucose 138 mg/dL (83-110); Potassium 3.8 mmol/L (3.5-5.1); Sodium 137 mmol/L (136-145)
[2019-09-13 05:10] LABS: Hemoglobin 10.1 g/dL (14.0-18.0); Lymphocytes 5 % (21-51); MDiff Complete? YES; Mean Corpuscular HGB CONC 32.2 g/dL (32.0-36.0); Mean Corpuscular Hemoglobin 30.4 pg (27.0-31.0); Mean Corpuscular Volume 94.3 fL (78.0-98.0); Mean Platelet Volume 6.5 fL (7.4-10.4); Neutrophil 95 % (42-75); Platelet Count 469 thou/uL (130-400); Platelet Morphology Comment Appears Increased; RBC Distribution Width 14.3 % (11.5-14.5); Red Blood Cell (RBC) Count 3.33 mill/uL (4.70-6.10); White Blood Cell (WBC) Count 12.6 thou/uL (4.8-10.8)
[2019-09-13] MEDS: methylPREDNISolone Sod Succ 40 MG VIAL IVP SCH ×2 (06:12→11:12)
[2019-09-13 06:39] VITALS: BMI 22.6
[2019-09-13] MEDS: Dorzolamide HCl 2% Ophth Soln 10 ml Bottle EA EYE SCH (07:52)
[2019-09-13] MEDS: Gabapentin 300 MG CAP PO SCH (07:52)
[2019-09-13] MEDS: Brimonidine Tartrate 0.2% Ophth Soln 5 ml Bottle EA EYE SCH (07:52)
[2019-09-13] MEDS: Enoxaparin Sodium 40 MG/0.4 ML SYRINGE SC SCH (07:53)
[2019-09-13] MEDS ORDERED: Acetaminophen/Codeine 30-300mg Tablet PO PRN (09:33)
[2019-09-13] MEDS: guaiFENesin ER 600 MG TAB PO SCH (11:11)
[2019-09-13 11:45] VITALS: TEMP 98.2
[2019-09-13 13:45] VITALS: BP 136/76
--- NOTE | 2019-09-14 14:47 | EKG ---
Test Reason : EMERGENCY Blood Pressure : / mmHG Vent. Rate : 085 BPM Atrial Rate : 085 BPM P-R Int : 114 ms QRS Dur : 074 ms QT Int : 312 ms P-R-T Axes : 064 021 020 degrees QTc Int : 371 ms Normal sinus rhythm Nonspecific T wave abnormality No STEMI Abnormal ECG Confirmed by AMELIA CULP M.D. ([id number]), copy editor HANNY WISEMAN ([id number]) on 09/14/2019 2:46:49 PM Referred By: Confirmed By:AMELIA CULP M.D.
== END 2019-09-13 14:23 | disposition home health service (06) ==
LOC: ERS 04:42 → 2SW 06:37
PROVIDERS: ADMIT Family Medicine; ATTEND Family Medicine
DX: J44.1 Chronic obstructive pulmonary disease with (acute) exacerbation (principal); N40.0 Benign prostatic hyperplasia without lower urinary tract symptoms; I25.10 Atherosclerotic heart disease of native coronary artery without angina pectoris; I10 Essential (primary) hypertension; E78.5 Hyperlipidemia, unspecified; K21.9 Gastro-esophageal reflux disease without esophagitis; F31.9 Bipolar disorder, unspecified; F41.9 Anxiety disorder, unspecified; F10.11 Alcohol abuse, in remission; F17.210 Nicotine dependence, cigarettes, uncomplicated; Z79.82 Long term (current) use of aspirin; Z79.899 Other long term (current) drug therapy
CPT/HCPCS: 71045; 71275; 80048 ×3; 80053; 83605; 83880; 84484; 85007 ×3; 85025; 85027 ×3; 87040; 93005; 94640 ×5; 96365 ×2; 96372 ×2; 96374; 96375; 96376 ×4; 97116 ×3; 97139 ×2; 99285; G0378 ×5; 36415; J1650; J1956; J2270; J2405; J2543; J2920; J2930; J7620; Q9967

== ENCOUNTER 2019-09-21 00:36 | Inpatient (IN) | payer MEDICARE ==
[2019-09-21 01:22] LABS: Hemoglobin 12.2 g/dL (14.0-18.0); Mean Corpuscular HGB CONC 32.6 g/dL (32.0-36.0); Mean Corpuscular Hemoglobin 30.5 pg (27.0-31.0); Mean Corpuscular Volume 93.6 fL (78.0-98.0); Mean Platelet Volume 7.2 fL (7.4-10.4); Platelet Count 308 thou/uL (130-400); RBC Distribution Width 15.2 % (11.5-14.5); White Blood Cell (WBC) Count 16.9 thou/uL (4.8-10.8)
[2019-09-21 01:37] LABS: Band 2 % (5-11); Lymphocytes 5 % (21-51); MDiff Complete? YES; Monocytes 11 % (0-10); Neutrophil 82 % (42-75)
[2019-09-21 01:38] LABS: Bacteria/HPF None Seen HPF (None Seen); Bilirubin Negative (Negative); Blood, Urine Negative (Negative); Clarity Clear (Clear); Glucose, Urine (Dipstick) Normal (Negative); Leukocyte 75 Leu/uL (Negative); Nitrite Negative (Negative); Protein, Urine (Dipstick) Negative (Neg-Trace); RBC/HPF 0-3 HPF (0-3); Squamous Epithelial 0-3 HPF (0-3); WBC/HPF 0-3 HPF (0-3)
[2019-09-21 01:46] LABS: ALT (SGPT) 24 U/L (8-55); AST (SGOT) 26 U/L (5-34); Albumin 3.8 g/dL (3.4-4.8); Alkaline Phosphatase 103 U/L (40-110); Anion Gap 12 mmol/L (10-20); BUN (Urea Nitrogen) 12 mg/dL (8.4-25.7); Bilirubin, Total 0.6 mg/dL (0.2-1.2); Calc. Creatinine Clearance 0 mL/min (70-130); Calcium 9.2 mg/dL (7.8-10.44); Carbon Dioxide 27 mmol/L (23-31); Chloride 99 mmol/L (98-107); Estimated GFR-MDRD 86; Glucose 105 mg/dL (83-110); Lipase 8 U/L (8-78); Potassium 3.9 mmol/L (3.5-5.1); Protein, Total 6.8 g/dL (5.8-8.1); Sodium 134 mmol/L (136-145)
[2019-09-21] MEDS ORDERED: Ondansetron PF 4 MG/2 ML Vial ONE (02:39)
[2019-09-21] MEDS ORDERED: Albuterol 200 PUFF (6.7GM INHALER) ONE (03:08)
[2019-09-21] MEDS ORDERED: predniSONE 20 MG TAB ONE (03:08)
[2019-09-21 04:28] LABS: Hemoglobin 11.8 g/dL (14.0-18.0); Mean Corpuscular HGB CONC 33.9 g/dL (32.0-36.0); Mean Corpuscular Hemoglobin 31.4 pg (27.0-31.0); Mean Corpuscular Volume 92.7 fL (78.0-98.0); Mean Platelet Volume 6.7 fL (7.4-10.4); Platelet Count 271 thou/uL (130-400); RBC Distribution Width 15.1 % (11.5-14.5); Red Blood Cell (RBC) Count 3.77 mill/uL (4.70-6.10); White Blood Cell (WBC) Count 15.6 thou/uL (4.8-10.8)
[2019-09-21 04:33] VITALS: BMI 21.3
[2019-09-21 04:47] LABS: Band 2 % (5-11); Lymphocytes 12 % (21-51); MDiff Complete? YES; Monocytes 8 % (0-10); Neutrophil 78 % (42-75)
--- NOTE | 2019-09-21 06:24 | HP ---
CHIEF COMPLAINT: Shortness of breath. HISTORY OF PRESENT ILLNESS: Mr. Sarkar is an 89-year-old male with past medical history of COPD, hypertension, hyperlipidemia, recent cholecystectomy, coronary artery disease, presents to the emergency room with shortness of breath and right lower chest wall pain that began earlier today. Denies fever or chills. Denies nausea, vomiting, or diarrhea. EMS stated the patient's oxygen saturation was in the low 80s on arrival. Currently, the patient's oxygen saturation is on 2 L/minute nasal cannula. The patient was evaluated recently with a CTA of the chest and it was negative for pulmonary embolism. The patient was discharged home, not requiring oxygen. Currently, the patient's oxygen saturation in the 80s whenever he moves on room air. Imaging studies including abdominal CT, no acute finding. The patient is being admitted to hospital for further management. PAST MEDICAL HISTORY: As mentioned above in the history of present illness. PAST SURGICAL HISTORY: 1. Cholecystectomy in August 2019. 2. Right eye surgery. 3. Back surgery. 4. Cardiac procedure? PAST PSYCHIATRIC HISTORY: Bipolar disorder. SOCIAL HISTORY: The patient has smoked for 30 years. The patient drinks every day about 5 drinks a day. FAMILY HISTORY: Reviewed and noncontributory. HOME MEDICATIONS: Please see home medication reconciliation form for updated medications. ALLERGIES: NO KNOWN ALLERGIES. REVIEW OF SYSTEMS: Review of 14 systems negative, except what is mentioned in the history of present illness. PHYSICAL EXAMINATION: GENERAL: The patient is awake and alert, in mild distress. VITAL SIGNS: Blood pressure 128/90, pulse is 86, respiratory rate is 20, oxygen saturation is on 2 L/minute nasal cannula, and temperature is 98.5. HEAD AND NECK: Normocephalic and atraumatic. NECK: Supple. No JVD. CHEST: Fair bilateral air entry. HEART: S1 and S2. Regular. ABDOMEN: Soft. Mild right upper quadrant tenderness. Bowel sounds presents. NEUROLOGIC: Awake, alert, and oriented, moves all extremities. PSYCHIATRIC: Unable to access. EXTREMITIES: No clubbing. No cyanosis. GENITOURINARY: No suprapubic tenderness. No flank tenderness. LABORATORY DATA: WBC count is elevated to 16.9, the patient was recently on steroids. Urinalysis, unremarkable. Electrolytes; sodium 134, otherwise unremarkable. Lipase 8. Troponin 0.01. IMAGING STUDIES: As mentioned above in the history of present illness. ASSESSMENT: 1. Chronic obstructive pulmonary disease with exacerbation? 2. Acute respiratory failure, hypoxic. The patient's oxygen saturation is in the 80s on room air. 3. Right upper quadrant abdominal pain. The patient had recent cholecystectomy. Imaging studies unremarkable. LFTs unremarkable. 4. Cigarette smoker. 5. History of coronary artery disease. 6. Hypertension. 7. Hyperlipidemia. PLAN: 1. Admit. 2. Oxygen to keep saturation more than 92%. 3. Bronchodilators. 4. IV steroids. 5. Empiric antibiotics. 6. Consult Pulmonary for evaluation and further recommendations. 7. The patient will need evaluation for home oxygen requirement prior to discharge. 8. DVT prophylaxis, low-molecular weight heparin. 9. Expected length of stay, 2 midnights. Job ID: [id number]
[2019-09-21] MEDS: methylPREDNISolone Sod Succ 40 MG VIAL IVP SCH ×4 (06:26→23:30)
--- NOTE | 2019-09-21 07:59 | CT ---
PRELIMINARY REPORT/[facility]/EMERGENCY AFTER HOURS PROCEDURE PROCEDURE: CT Scan Abdomen and Pelvis with IV Contrast Material. HISTORY: RIGHT upper quadrant and RIGHT lower chest wall pain today with some shortness of breath. TECHNIQUE: Axial images were performed with multiplanar reconstructions. The patient was given iodin ated contrast intravenously. The patient was not given oral contrast material. COMPARISONS: 08/28/2019. FINDINGS: Subcentimeter calcified granuloma RIGHT lung base. Small hiatal hernia. Unchanged small hepatic cysts LEFT lobe. Interval appearance of 3.5 cm low-attenuation mass RIGHT lo be of the liver adjacent to the gallbladder fossa. Spleen, adrenals, and pancreas show no abnormality. Small renal cortical cysts bilaterally largest on the RIGHT at 3 cm. No obstructive ur opathy. There has been interval cholecystectomy with normal sized biliary tree. There some minimal stranding in the gallbladder fossa may be related to recent cholecystectomy with no loculated fluid collections. No abdominal ascites or pneumoperitoneum. Moderate atherosclerosis aorta with no aneurysm or dissection. No lymphadenopathy. No bowel obstruction or inflammation and normal appendix RIGHT lower quadrant. Pelvis shows no masses or free fluid. Normal urinary bladder. No acute bony abnormality. IMPRESSION: Interval appearance of low-density mass involving RIGHT lobe of the liver adjacent to the gallbladder fossa with no enhancement. Differential considerations would include focal hepatitis possibly related to interval cholecystectomy or focal fatty infiltration. Ultrasound may be helpful for furth er evaluation. Previously mentioned interval cholecystectomy with normal sized biliary tree. Unchanged LEFT hepatic and bilateral renal cortical cysts. No other acute change identified ELECTRONICALLY SIGNED BY: Kavon Carpenter MD Sep 21, 2019 1:50:13 AM CDT This report is intended for review by the ordering physician only, in accordance of law. If you recei ve this report in error, please call [facility] at [phone]. FINAL REPORT Emergent after hours CT abdomen and pelvis with IV contrast HISTORY: Right upper quadrant abdominal pain and right lower chest wall pain that began today. COMPARISON: CTA abdomen on 08/28/2019. IMPRESSION: 1. Hypodense cystic appearing structure in the right hepatic lobe adjacent to the gallbladder fossa w ith evidence of prior cholecystectomy changes. This low-density area demonstrated ill-defined hypoechoic area with gas centrally on prior CTA chest on 09/10/2019. This could be secondary to postop erative changes. No significant adjacent inflammatory changes or gas is seen within this low density area to suggest abscess collection. A biloma is a possibility, but infection also cannot be e ntirely excluded. 2. Hepatic and renal cysts again present. 3. Small hiatal hernia. Findings are in agreement with the preliminary report by [facility]. Transcribed Date/Time: 09/21/2019 8:12 AM
[2019-09-21 08:07] LABS: Troponin I 0.011 ng/mL (< 0.028)
--- NOTE | 2019-09-21 08:13 | RAD ---
EXAM: Portable chest PROVIDED CLINICAL HISTORY: Chest pain COMPARISON: 09/10/2019 FINDINGS: Cardiac and mediastinal silhouette is unchanged in appearance. No focal consolidation, pleural fluid or pneumothorax evident. IMPRESSION: No evidence for an acute cardiopulmonary process.
[2019-09-21] MEDS: Famotidine/PF 20 mg/2ml Vial SLOW IVP SCH ×2 (10:01→19:30)
[2019-09-21] MEDS: Enoxaparin Sodium 40 MG/0.4 ML SYRINGE SC SCH (10:02)
--- NOTE | 2019-09-21 10:06 | PDOC.HOSPP ---
- Subjective Encounter Date: 09/21/19 Encounter Time: 09:59 Subjective: apparently complaining of same right flank pain as before cholecystectomy last month. no respiratory distress - Objective Vital Signs & Weight: Vital Signs (12 hours) Temp Pulse Resp BP Pulse Ox 09/21/19 09:00 98.5 F 79 20 160/74 H 98 09/21/19 08:14 80 18 98 09/21/19 05:29 162/74 H 09/21/19 05:00 94 L 09/21/19 04:34 98.2 F 87 18 175/80 H 94 L Weight Weight 140 lb 8 oz I&O: 09/20/19 09/21/19 09/22/19 06:59 06:59 06:59 Intake Total 161 Balance 161 Result Diagrams: 09/21/19 04:08 09/21/19 01:06 Hospitalist ROS - Medication Medications: Active Medications Generic Name Dose Route Start Last Admin Trade Name Freq PRN Reason Stop Dose Admin Albuterol/Ipratropium 3 ml 09/21/19 07:00 09/21/19 08:14 Duoneb NEB 3 ml [id number] ONEYDA Administration Levofloxacin 750 mg/ Device 150 mls @ 100 mls/hr 09/21/19 04:00 09/21/19 05: 36 IVPB 150 mls Q24HR ONEYDA Administration Methylprednisolone Sodium Succinate 40 mg 09/21/19 06:00 09/21/19 06:26 Solu-Medrol IVP 40 mg Q6HR ONEYDA Administration - Exam General Appearance: awake alert Neck: no JVD Heart: RRR, no murmur Respiratory: rhonchi, wheezes Respiratory - other findings: expiratory Gastrointestinal: soft, non-distended, normal bowel sounds Gastrointestinal - other findings: mild R flank tenderness, no skin lesion Extremities: no edema Hosp A/P (1) Acute respiratory failure with hypoxemia Code(s): J96.01 - ACUTE RESPIRATORY FAILURE WITH HYPOXIA Status: Acute (2) HTN (hypertension) Code(s): I10 - ESSENTIAL (PRIMARY) HYPERTENSION Status: Acute (3) Flank pain Code(s): R10.9 - UNSPECIFIED ABDOMINAL PAIN Status: Acute (4) COPD exacerbation Code(s): J44.1 - CHRONIC OBSTRUCTIVE PULMONARY DISEASE W (ACUTE) EXACERBATION Status: Acute (5) CAD (coronary artery disease) Code(s): I25.10 - ATHSCL HEART DISEASE OF [place] CORONARY ARTERY W/O ANG PCTRS Status: Chronic Qualifiers: Coronary Disease-Associated Artery/Lesion type: [place] artery [place] vs. transplanted heart: [place] heart Associated angina: without angina Qualified Code(s): I25.10 - Atherosclerotic heart disease of [place] coronary artery without angina pectoris (6) Tobacco abuse Code(s): Z72.0 - TOBACCO USE Status: Chronic - Plan cont agressive pulmonary care with nebs, steroids(IV), etc post grecia- LFTs normal suspect flank pain is muskuloskeletal with history of L1 vertebroplasty
--- NOTE | 2019-09-21 11:10 | CON ---
DATE OF CONSULTATION: 09/21/2019 CONSULTING PHYSICIAN: Hospitalist Group. REASON FOR CONSULTATION: COPD exacerbation. HISTORY OF PRESENT ILLNESS: The patient is an 89-year-old male, with whom I am having a very difficult time getting a history. His complaints right now revolving around back pain and arthritis. His history and physical states that he was brought in last night with shortness of breath. He was never above 2 L nasal cannula oxygen. He has been seen in the past in the perioperative period by Dr. Lagunas, but I do not think he had any issues with his breathing at that time. PAST MEDICAL HISTORY: 1. Chronic obstructive pulmonary disease. 2. Coronary artery disease. 3. Hypertension. 4. Hyperlipidemia. PAST SURGICAL HISTORY: 1. Cholecystectomy. 2. Right eye surgery. 3. Back surgery. 4. Cardiac catheterization. SOCIAL HISTORY: He has smoked for over 30 years. Drinks about 5 drinks per day. FAMILY MEDICAL HISTORY: Unremarkable. ALLERGIES: NONE. MEDICATIONS: Prior to admission, these were reviewed and listed in the home medication section in [facility]. Of note, his outpatient pulmonary medications include Spiriva, Advair, and albuterol. He is also listed as being on prednisone 20 mg 3 times daily. REVIEW OF SYSTEMS: Twelve-point review of systems is otherwise negative. PHYSICAL EXAMINATION: VITAL SIGNS: Temperature 98.5, pulse 79, respirations 20, O2 sat 98% on 2 L, and blood pressure 160/74. GENERAL: He is awake and in no distress. HEENT: Unremarkable. NECK: No adenopathy or JVD. LUNGS: He has a mild end-expiratory wheeze. CARDIAC: S1, S2. Regular. ABDOMEN: Soft, nontender. EXTREMITIES: No clubbing, cyanosis, or edema. DIAGNOSTIC DATA: His chest x-ray demonstrates no acute changes bilaterally. LABORATORY DATA: White blood cell count 15.6, hematocrit 34.9, and platelet count 271 with 78% neutrophils, 2% bands. Sodium 134, potassium 3.9, chloride 99, CO2 of 27, BUN 12, creatinine 1.0, glucose 105. ASSESSMENT: 1. Chronic obstructive pulmonary disease with questionable exacerbation of symptoms. 2. Tobacco abuse. 3. Elevated white count, which may be from his chronic steroid use. 4. Right flank pain, status post cholecystectomy. PLAN: I agree with the steroids, antibiotics, nebulization therapy as per treatment of typical COPD exacerbation. I am not convinced this exacerbation is too bad. Hopefully, he will be able to go home soon. Job ID: [id number]
[2019-09-21] MEDS: Acetaminophen 325 MG TAB PO PRN (12:19)
[2019-09-21] MEDS ORDERED: Iopamidol-370 76% 500 ML 1 ML ONE (13:19)
[2019-09-21] MEDS ORDERED: Prevnar 13-Val Conj/PF 0.5 ML SYRINGE IM ONE (21:00)
[2019-09-22] MEDS: methylPREDNISolone Sod Succ 40 MG VIAL IVP SCH ×2 (05:35→11:04)
[2019-09-22] MEDS: Enoxaparin Sodium 40 MG/0.4 ML SYRINGE SC SCH (08:24)
[2019-09-22] MEDS: Famotidine/PF 20 mg/2ml Vial SLOW IVP SCH ×2 (08:25→19:33)
[2019-09-22] MEDS: Acetaminophen 325 MG TAB PO PRN ×2 (09:28→18:16)
--- NOTE | 2019-09-22 09:45 | PRG ---
DATE OF SERVICE: 09/22/2019 SUBJECTIVE: Mr. Sarkar says he feels about the same. OBJECTIVE: GENERAL: He is in no distress. VITAL SIGNS: Blood pressure 158/72, heart rate 82, respiratory rate 16. He is afebrile. Oximetry is 99% on 2 L, 95 on room air yesterday or earlier this morning. LUNGS: Distant, clear. HEART: Regular rhythm. ABDOMEN: Soft. He asked me to "put him out of his misery." IMPRESSION: 1. Chronic obstructive pulmonary disease exacerbation, clinically appears to be mild. 2. Advanced age. It is unclear whether or not this is all COPD or deconditioning. He asked to be put out of his misery, which I have explained cannot be done. It would be appropriate to have palliative care get involved with his care. His code status at 89 years of age with COPD definitely needs to be addressed. He is not someone that I have seen in the office, otherwise this would have been addressed by now. Given that he is not in any distress, we will be available over the weekend, but will not round on him this week unless problems arise. Job ID: [id number]
--- NOTE | 2019-09-22 11:26 | PDOC.HOSPP ---
- Subjective Encounter Date: 09/22/19 Encounter Time: 11:29 Subjective: no sob, - Objective Vital Signs & Weight: Vital Signs (12 hours) Temp Pulse Resp BP Pulse Ox 09/22/19 11:12 99.0 F 87 18 141/65 H 99 09/22/19 08:00 99 09/22/19 07:55 98.9 F 82 16 158/72 H 99 09/22/19 06:30 88 20 09/22/19 04:00 99.2 F 68 16 147/63 H 95 09/22/19 01:13 65 16 91 L 09/22/19 00:50 98 09/21/19 23:30 99.6 F 80 16 167/86 H 97 Weight Admit Weight 140 lb 8 oz Weight 140 lb 8 oz I&O: 09/21/19 09/22/19 09/23/19 06:59 06:59 06:59 Intake Total 751 Output Total 725 Balance 26 Result Diagrams: 09/21/19 04:08 09/21/19 01:06 Hospitalist ROS - Medication Medications: Active Medications Generic Name Dose Route Start Last Admin Trade Name Freq PRN Reason Stop Dose Admin Acetaminophen 650 mg 09/21/19 03:14 09/22/19 09:28 Tylenol PO 650 mg Q4H PRN Administration Headache/Fever/Mild Pain (1-3) Albuterol/Ipratropium 3 ml 09/21/19 07:00 09/22/19 06:30 Duoneb NEB 3 ml [id number] ONEYDA Administration Enoxaparin Sodium 40 mg 09/21/19 09:00 09/22/19 08:24 Lovenox SC 40 mg 0900 ONEYDA Administration Famotidine 20 mg 09/21/19 09:00 09/22/19 08:25 Pepcid SLOW IVP 20 mg Q12HR ONEYDA Administration Levofloxacin 750 mg/ Device 150 mls @ 100 mls/hr 09/21/19 04:00 09/22/19 04: 01 IVPB 150 mls Q24HR ONEYDA Administration Pantoprazole Sodium 40 mg 09/21/19 09:00 09/22/19 08:24 Protonix PO 40 mg DAILY ONEYDA Administration Sodium Chloride 10 ml 09/21/19 09:00 09/22/19 08:25 Flush - Normal Saline IVF 10 ml Q12HR ONEYDA Administration - Exam General Appearance: NAD, awake alert Neck: no JVD Heart: RRR, no murmur Respiratory - other findings: decreaseds BS with no focal findings Gastrointestinal: soft, normal bowel sounds Extremities: no edema Hosp A/P (1) Acute respiratory failure with hypoxemia Code(s): J96.01 - ACUTE RESPIRATORY FAILURE WITH HYPOXIA Status: Acute (2) HTN (hypertension) Code(s): I10 - ESSENTIAL (PRIMARY) HYPERTENSION Status: Acute (3) Flank pain Code(s): R10.9 - UNSPECIFIED ABDOMINAL PAIN Status: Acute (4) COPD exacerbation Code(s): J44.1 - CHRONIC OBSTRUCTIVE PULMONARY DISEASE W (ACUTE) EXACERBATION Status: Acute (5) CAD (coronary artery disease) Code(s): I25.10 - ATHSCL HEART DISEASE OF [place] CORONARY ARTERY W/O ANG PCTRS Status: Chronic Qualifiers: Qualified Code(s): I25.10 - Atherosclerotic heart disease of [place] coronary artery without angina pectoris (6) Tobacco abuse Code(s): Z72.0 - TOBACCO USE Status: Chronic - Plan suspect flank pain is muskuloskeletal with history of L1 vertebroplasty pulmonary status baseline, transitioned to po meds
[2019-09-22] MEDS: Ipratropium Bromide 2.5 ml Neb NEB SCH ×2 (13:19→18:31)
[2019-09-22] MEDS: Dorzolamide HCl 2% Ophth Soln 10 ml Bottle EA EYE SCH ×2 (14:50→19:35)
[2019-09-22] MEDS: Brimonidine Tartrate 0.2% Ophth Soln 5 ml Bottle EA EYE SCH ×2 (14:50→19:35)
--- NOTE | 2019-09-22 15:03 | EKG ---
Test Reason : Blood Pressure : / mmHG Vent. Rate : 076 BPM Atrial Rate : 076 BPM P-R Int : 106 ms QRS Dur : 070 ms QT Int : 378 ms P-R-T Axes : 069 010 032 degrees QTc Int : 425 ms Sinus rhythm with short MI Otherwise normal ECG Confirmed by SO KELLER DO ([id number]), editor school photograph HANNY WISEMAN ([id number]) on 09/22/2019 3:02:57 PM Referred By: Confirmed By:SO KELLER DO
--- NOTE | 2019-09-22 15:07 | PDOC.PALCO ---
Palliative Care Consult - Consult Details Requesting Physician: Dr Lagunas Reason for Consult: goals of care, advance directives assistance - Pertinent HPI 89 year old gentleman who was recent discharged back to his nieces residence, she is also MPOA. He had an onset of shortness of breath with chest wall pain that he states did not "move". EMS was called and he was transported to the hospital, emergency room identified exacerbation of CHF and he was admitted for further management. - Pertinent PMH COPD, HTN, HDL, Cholecystectomy, CAD, niece reports alcohol abuse - Social History Smoking Status: Current every day smoker Alcohol Use: occasional Drug Use History: none Living Situation: with family/parents - Medications MAR Reviewed: Yes - Allergies Allergies/Adverse Reactions: Allergies Allergy/AdvReac Type Severity Reaction Status Date / Time No Known Drug Allergies Allergy Verified 09/21/19 04:30 - Subjective Sleeping but arousable. - ROS Constitutional: alert, weakness ENT: alteration in dentition Respiratory: shortness of breath Cardiology: other (negative for chest pain, palpitations) Gastrointestinal: other (Denies nausea, vomiting) Musculoskeletal: arthritis/arthralgias Neurological: other (Denies headache) Skin: other (denies rash, puritis) - Objective Vital Signs: Vital Signs - Most Recent Temp Pulse Resp BP Pulse Ox 99.0 F 64 16 141/65 H 99 09/22/19 11:12 09/22/19 13:19 09/22/19 13:19 09/22/19 11:12 09/22/19 11:12 Palliative Performance Scale: 40 - Advance Directives Medical Power of Correction Officer Head: Niece - Physical Exam HEENT: moist MMs, sclera anicteric Respiratory: no wheezing, diminished lung sound Cardiovascular: RRR Gastrointestinal: soft, non-tender Genitourinary: continent Musculoskeletal: pulses present Neurology: moves all 4 limbs Skin: no lesions, no rash Psychiatric: A&O x 3 Deviation from normal: mild delay in recall - Problem List (1) COPD exacerbation Code(s): J44.1 - CHRONIC OBSTRUCTIVE PULMONARY DISEASE W (ACUTE) EXACERBATION Current Visit: No Status: Acute (2) Tobacco abuse Code(s): Z72.0 - TOBACCO USE Current Visit: No Status: Chronic (3) Palliative care encounter Code(s): Z51.5 - ENCOUNTER FOR PALLIATIVE CARE Current Visit: Yes Status: Acute (4) Physical deconditioning Code(s): R53.81 - OTHER MALAISE Current Visit: Yes Status: Acute - Plan/Recommendations Plan: Patient hoping to transition to a snf. Confirmed he wishes to be a DNAR , OOHDNAR place on chart for Dr Santos. Landy ([facility]) also confiremd. Discussed goal of care and patient states "I just want to live in a snf ". Communicated with Dr Santos and DEXTER Torres as well as Dinah [60] minutes spent on this encounter with >50% of the time in counseling and coordination of care. Thank you for this very appropriate consult.
[2019-09-22] MEDS ORDERED: Morphine 4 MG/ML VIAL ONE (19:05)
[2019-09-22] MEDS: Morphine 2 MG/ML SYRINGE SLOW IVP SCH (19:10)
[2019-09-22] MEDS ORDERED: Magnesium 2 GM/50 ML 2 GM in Premix Bag 1 BAG IVPB SCH (19:15)
[2019-09-22] MEDS ORDERED: methylPREDNISolone Sod Succ/PF 125 MG/2 ML VIAL IVP SCH (19:15)
[2019-09-22] MEDS ORDERED: Bacteriostatic Water 30 ML VIAL FS SCH (19:15)
[2019-09-22] MEDS: Montelukast Sodium 10 mg Tablet PO SCH (19:34)
[2019-09-22] MEDS: Atorvastatin Calcium 10 MG TAB PO SCH (19:34)
[2019-09-22] MEDS: Latanoprost 0.005% Ophth Soln 2.5 ml Bottle EA EYE SCH (19:46)
[2019-09-23] MEDS: Ipratropium Bromide 2.5 ml Neb NEB SCH ×5 (00:14→23:52)
[2019-09-23] MEDS: Famotidine/PF 20 mg/2ml Vial SLOW IVP SCH ×2 (08:27→19:59)
[2019-09-23] MEDS: Oxybutynin ER 5 MG TAB PO SCH (08:28)
[2019-09-23] MEDS: Azithromycin 250 MG TAB PO SCH (08:28)
[2019-09-23] MEDS: Aspirin 81 mg Enteric Coated Tablet PO SCH (08:28)
[2019-09-23] MEDS: Folic Acid 1 MG TAB PO SCH (08:28)
[2019-09-23] MEDS: Docusate 100 MG CAP PO SCH (08:28)
[2019-09-23] MEDS: Cyanocobalamin (Vitamin B-12) 1,000 MCG TAB PO SCH (08:28)
[2019-09-23] MEDS: predniSONE 20 MG TAB PO SCH (08:28)
[2019-09-23] MEDS: Dutasteride 0.5 MG CAP PO SCH (08:29)
[2019-09-23] MEDS: FLUoxetine HCl 20 MG CAP PO SCH (08:29)
[2019-09-23] MEDS: Dorzolamide HCl 2% Ophth Soln 10 ml Bottle EA EYE SCH ×3 (08:30→19:58)
[2019-09-23] MEDS: Enoxaparin Sodium 40 MG/0.4 ML SYRINGE SC SCH (08:30)
[2019-09-23] MEDS: Brimonidine Tartrate 0.2% Ophth Soln 5 ml Bottle EA EYE SCH ×3 (08:30→19:58)
[2019-09-23] MEDS: Thiamine 100 MG TAB PO SCH (08:33)
[2019-09-23] MEDS: Morphine 2 MG/ML SYRINGE SLOW IVP SCH (08:34)
--- NOTE | 2019-09-23 13:09 | PDOC.HOSPP ---
- Subjective Encounter Date: 09/23/19 Encounter Time: 07:20 Subjective: Pt seen for followup re: acute hypoxic respiratory failure. Sleepy but arousable, denies any complaints. - Objective Vital Signs & Weight: Vital Signs (12 hours) Temp Pulse Resp BP Pulse Ox 09/23/19 12:00 94 L 09/23/19 11:25 98.4 F 74 16 159/73 H 94 L 09/23/19 08:00 95 09/23/19 07:42 98.3 F 77 18 152/70 H 95 09/23/19 01:39 91 20 94 L Weight Admit Weight 140 lb 8 oz Weight 140 lb 8 oz I&O: 09/22/19 09/23/19 09/24/19 06:59 06:59 06:59 Intake Total 751 472 Output Total 725 Balance 26 472 Result Diagrams: 09/21/19 04:08 09/21/19 01:06 Additional Labs: Labs and MARs reviewed by me Hospitalist ROS - Review of Systems Respiratory: reports: cough, dry, SOB with excertion. denies: shortness of breath, hemoptysis, pleuritic pain, sputum, wheezing Cardiovascular: denies: chest pain, palpitations, orthopnea, paroxysmal noc. dyspnea, edema, light headedness - Medication Medications: Active Medications Generic Name Dose Route Start Last Admin Trade Name Freq PRN Reason Stop Dose Admin Acetaminophen 650 mg 09/21/19 03:14 09/22/19 18:16 Tylenol PO 650 mg Q4H PRN Administration Headache/Fever/Mild Pain (1-3) Albuterol/Ipratropium 3 ml 09/21/19 07:00 09/23/19 06:15 Duoneb NEB Not Given [id number] ONEYDA Albuterol/Ipratropium 3 ml 09/21/19 03:11 09/23/19 01:39 Duoneb NEB 3 ml [id number] PRN Administration SOB &/or Wheezing Aspirin 81 mg 09/23/19 09:00 09/23/19 08:28 Ecotrin PO 81 mg DAILY ONEYDA Administration Atorvastatin Calcium 10 mg 09/22/19 21:00 09/22/19 19:34 Lipitor PO 10 mg HS ONEYDA Administration Azithromycin 250 mg 09/23/19 09:00 09/23/19 08:28 Zithromax PO 09/26/19 09:01 250 mg DAILY ONEYDA Administration Brimonidine Tartrate 0 drop 09/22/19 15:00 09/23/19 08:30 Alphagan 0.2% Ophth Soln EA EYE 1 drop TID ONEYDA Administration Cyanocobalamin 1,000 mcg 09/23/19 09:00 09/23/19 08:28 Vitamin B-12 PO 1,000 mcg DAILY ONEYDA Administration Docusate Sodium 100 mg 09/23/19 09:00 09/23/19 08:28 Colace PO 100 mg DAILY ONEYDA Administration Dorzolamide HCl 0 drop 09/22/19 15:00 09/23/19 08:30 Trusopt 2% Ophth Soln EA EYE 1 drop TID ONEYDA Administration Dutasteride 0.5 mg 09/23/19 09:00 09/23/19 08:29 Avodart PO 0.5 mg DAILY ONEYDA Administration Enoxaparin Sodium 40 mg 09/21/19 09:00 09/23/19 08:30 Lovenox SC 40 mg 0900 ONEYDA Administration Famotidine 20 mg 09/21/19 09:00 09/23/19 08:27 Pepcid SLOW IVP 20 mg Q12HR ONEYDA Administration Fluoxetine HCl 20 mg 09/23/19 09:00 09/23/19 08:29 Prozac PO 20 mg DAILY ONEYDA Administration Folic Acid 1 mg 09/23/19 09:00 09/23/19 08:28 Folvite PO 1 mg DAILY ONEYDA Administration Ipratropium [place] 2.5 ml 09/22/19 13:00 09/23/19 06:15 Atrovent NEB Not Given [id number] ONEYDA Latanoprost 1 drop 09/22/19 21:00 09/22/19 19:46 Xalatan 0.005% Ophth Soln EA EYE 1 drop HS ONEYDA Administration Montelukast Sodium 10 mg 09/22/19 21:00 09/22/19 19:34 Singulair PO 10 mg HS ONEYDA Administration Oxybutynin Chloride 5 mg 09/23/19 09:00 09/23/19 08:28 Ditropan Xl PO 5 mg DAILY ONEYDA Administration Pantoprazole Sodium 40 mg 09/21/19 09:00 09/23/19 08:28 Protonix PO 40 mg DAILY ONEYDA Administration Pantoprazole Sodium 40 mg 09/22/19 21:00 09/23/19 08:29 Protonix PO Not Given BID ONEYDA Prednisone 40 mg 09/23/19 08:00 09/23/19 08:28 Prednisone PO 40 mg QAM-WM ONEYDA Administration Sodium Chloride 10 ml 09/21/19 09:00 09/23/19 08:29 Flush - Normal Saline IVF 10 ml Q12HR ONEYDA Administration Thiamine HCl 100 mg 09/23/19 09:00 09/23/19 08:33 Thiamine PO 100 mg DAILY ONEYDA Administration - Exam Eye: anicteric sclera ENT: no oropharyngeal lesions, moist mucosa Neck: supple, symmetric Heart: RRR, no rubs Respiratory: CTAB Gastrointestinal: soft, non-tender Musculoskeletal: normal tone, normal strength Psychiatric: normal affect, normal behavior Hosp A/P - Plan Hosp A/P (1) Acute respiratory failure with hypoxemia Code(s): J96.01 - ACUTE RESPIRATORY FAILURE WITH HYPOXIA Status: Acute (2) COPD exacerbation Code(s): J44.1 - CHRONIC OBSTRUCTIVE PULMONARY DISEASE W (ACUTE) EXACERBATION Status: Acute (3) HTN (hypertension) Code(s): I10 - ESSENTIAL (PRIMARY) HYPERTENSION Status: Chronic (4) CAD (coronary artery disease) Code(s): I25.10 - ATHSCL HEART DISEASE OF [place] CORONARY ARTERY W/O ANG PCTRS Status: Chronic Qualifiers: Qualified Code(s): I25.10 - Atherosclerotic heart disease of [place] coronary artery without angina pectoris (5) Tobacco abuse Code(s): Z72.0 - TOBACCO USE Status: Chronic - Plan Continue oxygen, steroids and bronchodilators. Pt still on supplemental oxygen (denies using oxygen at home
[2019-09-23] MEDS: Gabapentin 300 MG CAP PO SCH ×2 (14:03→19:59)
[2019-09-23] MEDS: Latanoprost 0.005% Ophth Soln 2.5 ml Bottle EA EYE SCH (19:58)
[2019-09-23] MEDS: Montelukast Sodium 10 mg Tablet PO SCH (19:59)
[2019-09-23] MEDS: Terazosin HCl 5 MG CAP PO SCH (19:59)
[2019-09-23] MEDS: Atorvastatin Calcium 10 MG TAB PO SCH (19:59)
[2019-09-24] MEDS: Thiamine 100 MG TAB PO SCH (08:35)
[2019-09-24] MEDS: predniSONE 20 MG TAB PO SCH (08:35)
[2019-09-24] MEDS: Gabapentin 300 MG CAP PO SCH ×3 (08:35→19:49)
[2019-09-24] MEDS: Cyanocobalamin (Vitamin B-12) 1,000 MCG TAB PO SCH (08:35)
[2019-09-24] MEDS: Azithromycin 250 MG TAB PO SCH (08:35)
[2019-09-24] MEDS: FLUoxetine HCl 20 MG CAP PO SCH (08:35)
[2019-09-24] MEDS: Docusate 100 MG CAP PO SCH (08:36)
[2019-09-24] MEDS: Dutasteride 0.5 MG CAP PO SCH (08:36)
[2019-09-24] MEDS: Famotidine/PF 20 mg/2ml Vial SLOW IVP SCH ×2 (08:36→19:49)
[2019-09-24] MEDS: Aspirin 81 mg Enteric Coated Tablet PO SCH (08:36)
[2019-09-24] MEDS: Oxybutynin ER 5 MG TAB PO SCH (08:36)
[2019-09-24] MEDS: Enoxaparin Sodium 40 MG/0.4 ML SYRINGE SC SCH (08:36)
[2019-09-24] MEDS: Dorzolamide HCl 2% Ophth Soln 10 ml Bottle EA EYE SCH ×3 (08:36→19:48)
[2019-09-24] MEDS: Brimonidine Tartrate 0.2% Ophth Soln 5 ml Bottle EA EYE SCH ×3 (08:36→19:47)
[2019-09-24] MEDS: Folic Acid 1 MG TAB PO SCH (08:36)
[2019-09-24] MEDS: traMADol HCl 50 MG TAB PO PRN ×2 (09:09→15:54)
[2019-09-24] MEDS: Ipratropium Bromide 2.5 ml Neb NEB SCH ×3 (09:56→18:16)
--- NOTE | 2019-09-24 12:40 | PDOC.PALFU ---
Palliative Care Follow-up Note Palliative Care will sign off. Patient transitioned to DNAR, OOHDNAR placed on chart. Patient wishing to transition to nursing facility. MPOA who is niece confirmed. CM actively working on placement for [facility]. Unable to have hospice at facility, but will communicate that patient desires comfort measures. If Palliative Care can be of assistance in the future please reconsult.
[2019-09-24] MEDS ORDERED: Ondansetron PF 4 MG/2 ML Vial SLOW IVP PRN (18:39)
[2019-09-24] MEDS: Terazosin HCl 5 MG CAP PO SCH (19:46)
[2019-09-24] MEDS: Latanoprost 0.005% Ophth Soln 2.5 ml Bottle EA EYE SCH (19:47)
[2019-09-24] MEDS: Atorvastatin Calcium 10 MG TAB PO SCH (19:49)
[2019-09-24] MEDS: Montelukast Sodium 10 mg Tablet PO SCH (19:49)
--- NOTE | 2019-09-24 20:52 | PDOC.HOSPP ---
- Subjective Encounter Date: 09/24/19 Encounter Time: 17:20 Subjective: Pt seen for followup re: COPD exacerbation. c/o right-sided chest pain. Denies shortness of breath. - Objective Vital Signs & Weight: Vital Signs (12 hours) Pulse Resp Pulse Ox 09/24/19 18:48 97 09/24/19 18:46 97 09/24/19 15:10 78 12 09/24/19 09:56 81 16 Weight Admit Weight 140 lb 8 oz Weight 140 lb 8 oz I&O: 09/23/19 09/24/19 09/25/19 06:59 06:59 06:59 Intake Total 472 410 775 Output Total 670 900 Balance 102 -515 -125 Result Diagrams: 09/21/19 04:08 09/21/19 01:06 Additional Labs: Labs and MARs reviewed by fl Hospitalist ROS - Review of Systems Respiratory: denies: cough, shortness of breath, SOB with excertion, pleuritic pain, wheezing Cardiovascular: reports: chest pain. denies: palpitations, orthopnea, paroxysmal noc. dyspnea, edema, light headedness - Medication Medications: Active Medications Generic Name Dose Route Start Last Admin Trade Name Freq PRN Reason Stop Dose Admin Acetaminophen 650 mg 09/21/19 03:14 09/22/19 18:16 Tylenol PO 650 mg Q4H PRN Administration Headache/Fever/Mild Pain (1-3) Albuterol/Ipratropium 3 ml 09/21/19 07:00 09/24/19 18:46 Duoneb NEB 3 ml [id number] ONEYDA Administration Albuterol/Ipratropium 3 ml 09/21/19 03:11 09/23/19 01:39 Duoneb NEB 3 ml [id number] PRN Administration SOB &/or Wheezing Aspirin 81 mg 09/23/19 09:00 09/24/19 08:36 Ecotrin PO 81 mg DAILY ONEYDA Administration Atorvastatin Calcium 10 mg 09/22/19 21:00 09/24/19 19:49 Lipitor PO 10 mg HS ONEYDA Administration Azithromycin 250 mg 09/23/19 09:00 09/24/19 08:35 Zithromax PO 09/26/19 09:01 250 mg DAILY ONEYDA Administration Brimonidine Tartrate 0 drop 09/22/19 15:00 09/24/19 19:47 Alphagan 0.2% Ophth Soln EA EYE 1 drop TID ONEYDA Administration Cyanocobalamin 1,000 mcg 09/23/19 09:00 09/24/19 08:35 Vitamin B-12 PO 1,000 mcg DAILY ONEYDA Administration Diltiazem HCl 30 mg 09/23/19 15:00 09/24/19 19:47 Cardizem PO 30 mg TID ONEYDA Administration Docusate Sodium 100 mg 09/23/19 09:00 09/24/19 08:36 Colace PO 100 mg DAILY ONEYDA Administration Dorzolamide HCl 0 drop 09/22/19 15:00 09/24/19 19:48 Trusopt 2% Ophth Soln EA EYE 1 drop TID ONEYDA Administration Dutasteride 0.5 mg 09/23/19 09:00 09/24/19 08:36 Avodart PO 0.5 mg DAILY ONEYDA Administration Enoxaparin Sodium 40 mg 09/21/19 09:00 09/24/19 08:36 Lovenox SC 40 mg 0900 ONEYDA Administration Famotidine 20 mg 09/21/19 09:00 09/24/19 19:49 Pepcid SLOW IVP 20 mg Q12HR ONEYDA Administration Fluoxetine HCl 20 mg 09/23/19 09:00 09/24/19 08:35 Prozac PO 20 mg DAILY ONEYDA Administration Folic Acid 1 mg 09/23/19 09:00 09/24/19 08:36 Folvite PO 1 mg DAILY ONEYDA Administration Gabapentin 300 mg 09/23/19 15:00 09/24/19 19:49 Neurontin PO 300 mg TID ONEYDA Administration Ipratropium [place] 2.5 ml 09/22/19 13:00 09/24/19 18:16 Atrovent NEB Not Given [id number] ONEYDA Latanoprost 1 drop 09/22/19 21:00 09/24/19 19:47 Xalatan 0.005% Ophth Soln EA EYE 1 drop HS ONEYDA Administration Montelukast Sodium 10 mg 09/22/19 21:00 09/24/19 19:49 Singulair PO 10 mg HS ONEYDA Administration Oxybutynin Chloride 5 mg 09/23/19 09:00 09/24/19 08:36 Ditropan Xl PO 5 mg DAILY ONEYDA Administration Pantoprazole Sodium 40 mg 09/21/19 09:00 09/24/19 08:36 Protonix PO 40 mg DAILY ONEYDA Administration Prednisone 40 mg 09/23/19 08:00 09/24/19 08:35 Prednisone PO 40 mg QAM-WM ONEYDA Administration Sodium Chloride 10 ml 09/21/19 09:00 09/24/19 19:55 Flush - Normal Saline IVF 10 ml Q12HR ONEYDA Administration Terazosin HCl 10 mg 09/23/19 21:00 09/24/19 19:46 Hytrin PO 10 mg HS ONEYDA Administration Thiamine HCl 100 mg 09/23/19 09:00 09/24/19 08:35 Thiamine PO 100 mg DAILY ONEYDA Administration Tramadol HCl 50 mg 09/23/19 10:09 09/24/19 15:54 Ultram PO 50 mg Q6H PRN Administration Mild-Moderate Pain (1-5) - Exam General Appearance: awake alert Eye: anicteric sclera ENT: moist mucosa Neck: supple Heart: RRR Respiratory: CTAB Gastrointestinal: soft Extremities: no cyanosis Musculoskeletal - other findings: right lower chest wall tender to palpation Psychiatric: normal affect Hosp A/P - Plan Hosp A/P (1) COPD exacerbation Code(s): J44.1 - CHRONIC OBSTRUCTIVE PULMONARY DISEASE W (ACUTE) EXACERBATION Status: Acute (2) HTN (hypertension) Code(s): I10 - ESSENTIAL (PRIMARY) HYPERTENSION Status: Chronic (3) CAD (coronary artery disease) Code(s): I25.10 - ATHSCL HEART DISEASE OF [place] CORONARY ARTERY W/O ANG PCTRS Status: Chronic Qualifiers: Qualified Code(s): I25.10 - Atherosclerotic heart disease of [place] coronary artery without angina pectoris (4) Tobacco abuse Code(s): Z72.0 - TOBACCO USE Status: Chronic (5) Acute respiratory failure with hypoxemia Code(s): J96.01 - ACUTE RESPIRATORY FAILURE WITH HYPOXIA Status: Resolved - Plan Pt using oxygen for comfort, room air sats in low 90s. Check rib series to r/o rib fracture. Dispo: Plan to go to [facility], pall care will notify that he wants comfort measures. Two more days of azithromycin (oral). Stable for discharge any time when NH bed is arranged. HTN controlled today.
[2019-09-25] MEDS: Ipratropium Bromide 2.5 ml Neb NEB SCH (00:59)
[2019-09-25 04:12] LABS: Anion Gap 10 mmol/L (10-20); BUN (Urea Nitrogen) 20 mg/dL (8.4-25.7); Calc. Creatinine Clearance 45 mL/min (70-130); Calcium 8.7 mg/dL (7.8-10.44); Carbon Dioxide 27 mmol/L (23-31); Chloride 99 mmol/L (98-107); Estimated GFR-MDRD 82; Glucose 118 mg/dL (83-110); Sodium 132 mmol/L (136-145)
[2019-09-25 04:13] LABS: #Basophils 0.1 thou/uL (0.0-0.2); #Monocytes 1.2 thou/uL (0.11-0.59); #Neutrophils 10.1 thou/uL (1.40-6.50); %Basophils 0.5 % (0.0-1.0); %Eosinophils 0.2 % (0.0-10.0); %Lymphocytes 7.9 % (21.0-51.0); %Monocytes 9.5 % (0.0-10.0); Hemoglobin 12.4 g/dL (14.0-18.0); Mean Corpuscular HGB CONC 33.7 g/dL (32.0-36.0); Mean Corpuscular Hemoglobin 31.1 pg (27.0-31.0); Mean Corpuscular Volume 92.3 fL (78.0-98.0); Mean Platelet Volume 8.4 fL (7.4-10.4); Platelet Count 166 thou/uL (130-400); RBC Distribution Width 15.1 % (11.5-14.5); Red Blood Cell (RBC) Count 3.98 mill/uL (4.70-6.10); White Blood Cell (WBC) Count 12.3 thou/uL (4.8-10.8)
--- NOTE | 2019-09-25 08:19 | RAD ---
EXAM: XR Ribs Rt>=2 view STANDARD PROVIDED CLINICAL HISTORY: Right-sided pain. COMPARISON: Chest x-ray on 09/21/2019 FINDINGS: Linear scarring versus atelectasis is again present in the lateral aspect right midlung zone. Right l jaymie otherwise appears clear without pneumothorax or pleural fluid. Vascular calcifications are seen in an ectatic thoracic aorta. Vertebroplasty changes L1 vertebral body are present. Right glenohumeral osteoarthropathy is present. No displaced right-sided rib fracture is present. Surgical clips overlie the right upper quadrant. IMPRESSION: 1. No obvious right-sided rib fracture is seen. 2. Mild chronic lung changes. 3. Right glenohumeral osteoarthropathy.
[2019-09-25] MEDS: Gabapentin 300 MG CAP PO SCH ×3 (08:29→19:38)
[2019-09-25] MEDS: Thiamine 100 MG TAB PO SCH (08:29)
[2019-09-25] MEDS: Cyanocobalamin (Vitamin B-12) 1,000 MCG TAB PO SCH (08:29)
[2019-09-25] MEDS: Azithromycin 250 MG TAB PO SCH (08:29)
[2019-09-25] MEDS: Docusate 100 MG CAP PO SCH (08:30)
[2019-09-25] MEDS: Dutasteride 0.5 MG CAP PO SCH (08:30)
[2019-09-25] MEDS: FLUoxetine HCl 20 MG CAP PO SCH (08:30)
[2019-09-25] MEDS: Folic Acid 1 MG TAB PO SCH (08:30)
[2019-09-25] MEDS: predniSONE 20 MG TAB PO SCH (08:30)
[2019-09-25] MEDS: Aspirin 81 mg Enteric Coated Tablet PO SCH (08:30)
[2019-09-25] MEDS: Famotidine/PF 20 mg/2ml Vial SLOW IVP SCH ×2 (08:30→19:38)
[2019-09-25] MEDS: Oxybutynin ER 5 MG TAB PO SCH (08:31)
[2019-09-25] MEDS: Enoxaparin Sodium 40 MG/0.4 ML SYRINGE SC SCH (08:31)
[2019-09-25] MEDS: Dorzolamide HCl 2% Ophth Soln 10 ml Bottle EA EYE SCH ×3 (08:32→19:39)
[2019-09-25] MEDS: Brimonidine Tartrate 0.2% Ophth Soln 5 ml Bottle EA EYE SCH ×3 (08:32→19:39)
[2019-09-25] MEDS: traMADol HCl 50 MG TAB PO PRN ×2 (08:33→19:41)
--- NOTE | 2019-09-25 18:33 | PDOC.HOSPP ---
- Subjective Encounter Date: 09/25/19 Subjective: Says he is breathing fine, but has some discomfort in the left chest area. - Objective Vital Signs & Weight: Vital Signs (12 hours) Temp Pulse Resp BP Pulse Ox 09/25/19 12:55 80 16 09/25/19 07:35 98.7 F 84 20 129/62 96 09/25/19 07:31 90 14 Weight Admit Weight 140 lb 8 oz Weight 140 lb 8 oz I&O: 09/24/19 09/25/19 09/26/19 06:59 06:59 06:59 Intake Total 410 955 720 Output Total 925 900 Balance -515 55 720 Result Diagrams: 09/25/19 03:45 09/25/19 03:45 Hospitalist ROS - Medication Medications: Active Medications Generic Name Dose Route Start Last Admin Trade Name Freq PRN Reason Stop Dose Admin Acetaminophen 650 mg 09/21/19 03:14 09/22/19 18:16 Tylenol PO 650 mg Q4H PRN Administration Headache/Fever/Mild Pain (1-3) Albuterol/Ipratropium 3 ml 09/21/19 07:00 09/25/19 12:55 Duoneb NEB 3 ml [id number] ONEYDA Administration Albuterol/Ipratropium 3 ml 09/21/19 03:11 09/23/19 01:39 Duoneb NEB 3 ml [id number] PRN Administration SOB &/or Wheezing Aspirin 81 mg 09/23/19 09:00 09/25/19 08:30 Ecotrin PO 81 mg DAILY ONEYDA Administration Atorvastatin Calcium 10 mg 09/22/19 21:00 09/24/19 19:49 Lipitor PO 10 mg HS ONEYDA Administration Azithromycin 250 mg 09/23/19 09:00 09/25/19 08:29 Zithromax PO 09/26/19 09:01 250 mg DAILY ONEYDA Administration Brimonidine Tartrate 0 drop 09/22/19 15:00 09/25/19 15:03 Alphagan 0.2% Ophth Soln EA EYE 1 drop TID ONEYDA Administration Cyanocobalamin 1,000 mcg 09/23/19 09:00 09/25/19 08:29 Vitamin B-12 PO 1,000 mcg DAILY ONEYDA Administration Diltiazem HCl 30 mg 09/23/19 15:00 09/25/19 15:03 Cardizem PO 30 mg TID ONEYDA Administration Docusate Sodium 100 mg 09/23/19 09:00 09/25/19 08:30 Colace PO 100 mg DAILY ONEYDA Administration Dorzolamide HCl 0 drop 09/22/19 15:00 09/25/19 15:03 Trusopt 2% Ophth Soln EA EYE 1 drop TID ONEYDA Administration Dutasteride 0.5 mg 09/23/19 09:00 09/25/19 08:30 Avodart PO 0.5 mg DAILY ONEYDA Administration Enoxaparin Sodium 40 mg 09/21/19 09:00 09/25/19 08:31 Lovenox SC 40 mg 0900 ONEYDA Administration Famotidine 20 mg 09/21/19 09:00 09/25/19 08:30 Pepcid SLOW IVP 20 mg Q12HR ONEYDA Administration Fluoxetine HCl 20 mg 09/23/19 09:00 09/25/19 08:30 Prozac PO 20 mg DAILY ONEYDA Administration Folic Acid 1 mg 09/23/19 09:00 09/25/19 08:30 Folvite PO 1 mg DAILY ONEYDA Administration Gabapentin 300 mg 09/23/19 15:00 09/25/19 15:03 Neurontin PO 300 mg TID ONEYDA Administration Latanoprost 1 drop 09/22/19 21:00 09/24/19 19:47 Xalatan 0.005% Ophth Soln EA EYE 1 drop HS ONEYDA Administration Montelukast Sodium 10 mg 09/22/19 21:00 09/24/19 19:49 Singulair PO 10 mg HS ONEYDA Administration Oxybutynin Chloride 5 mg 09/23/19 09:00 09/25/19 08:31 Ditropan Xl PO 5 mg DAILY ONEYDA Administration Pantoprazole Sodium 40 mg 09/21/19 09:00 09/25/19 08:29 Protonix PO 40 mg DAILY ONEYDA Administration Prednisone 40 mg 09/23/19 08:00 09/25/19 08:30 Prednisone PO 40 mg QAM-WM ONEYDA Administration Sodium Chloride 10 ml 09/21/19 09:00 09/25/19 08:34 Flush - Normal Saline IVF 10 ml Q12HR ONEYDA Administration Terazosin HCl 10 mg 09/23/19 21:00 09/24/19 19:46 Hytrin PO 10 mg HS ONEYDA Administration Thiamine HCl 100 mg 09/23/19 09:00 09/25/19 08:29 Thiamine PO 100 mg DAILY ONEYDA Administration Tramadol HCl 50 mg 09/23/19 10:09 09/25/19 08:33 Ultram PO 50 mg Q6H PRN Administration Mild-Moderate Pain (1-5) - Exam General Appearance: NAD, awake alert Heart: RRR, no murmur, no gallops, no rubs, normal peripheral pulses Respiratory: CTAB, no wheezes Respiratory - other findings: diminished Gastrointestinal: soft, non-tender, non-distended, normal bowel sounds, no palpable masses, no hepatomegaly, no splenomegaly, no bruit Extremities: no cyanosis, no clubbing, no edema Skin: normal turgor Musculoskeletal: generalized weakness Psychiatric: normal affect Psychiatric - other findings: Difficult to get much information. Hosp A/P (1) Musculoskeletal chest pain Code(s): R07.89 - OTHER CHEST PAIN Status: Acute (2) Acute respiratory failure with hypoxemia Code(s): J96.01 - ACUTE RESPIRATORY FAILURE WITH HYPOXIA Status: Acute (3) HTN (hypertension) Code(s): I10 - ESSENTIAL (PRIMARY) HYPERTENSION Status: Acute (4) Atrial flutter Code(s): I48.92 - UNSPECIFIED ATRIAL FLUTTER Status: Acute (5) COPD exacerbation Code(s): J44.1 - CHRONIC OBSTRUCTIVE PULMONARY DISEASE W (ACUTE) EXACERBATION Status: Acute (6) CAD (coronary artery disease) Code(s): I25.10 - ATHSCL HEART DISEASE OF [place] CORONARY ARTERY W/O ANG PCTRS Status: Chronic Qualifiers: Coronary Disease-Associated Artery/Lesion type: [place] artery [place] vs. transplanted heart: [place] heart Associated angina: without angina Qualified Code(s): I25.10 - Atherosclerotic heart disease of [place] coronary artery without angina pectoris - Plan Doing ok. Appears to be at what I believe is his baseline. OK for discharge, but working on getting him back to his facility. Discussed with CM. Completing oral antibiotics and steroids.
[2019-09-25] MEDS: Latanoprost 0.005% Ophth Soln 2.5 ml Bottle EA EYE SCH (19:38)
[2019-09-25] MEDS: Montelukast Sodium 10 mg Tablet PO SCH (19:38)
[2019-09-25] MEDS: Terazosin HCl 5 MG CAP PO SCH (19:38)
[2019-09-25] MEDS: Atorvastatin Calcium 10 MG TAB PO SCH (19:39)
[2019-09-26] MEDS: predniSONE 20 MG TAB PO SCH (08:17)
[2019-09-26] MEDS: Brimonidine Tartrate 0.2% Ophth Soln 5 ml Bottle EA EYE SCH (09:15)
[2019-09-26] MEDS: Enoxaparin Sodium 40 MG/0.4 ML SYRINGE SC SCH (09:16)
[2019-09-26] MEDS: Famotidine/PF 20 mg/2ml Vial SLOW IVP SCH (09:16)
[2019-09-26] MEDS: Dutasteride 0.5 MG CAP PO SCH (09:17)
[2019-09-26] MEDS: Aspirin 81 mg Enteric Coated Tablet PO SCH (09:17)
[2019-09-26] MEDS: Docusate 100 MG CAP PO SCH (09:17)
[2019-09-26] MEDS: Gabapentin 300 MG CAP PO SCH (09:17)
[2019-09-26] MEDS: Folic Acid 1 MG TAB PO SCH (09:17)
[2019-09-26] MEDS: Thiamine 100 MG TAB PO SCH (09:17)
[2019-09-26] MEDS: Azithromycin 250 MG TAB PO SCH (09:18)
[2019-09-26] MEDS: Dorzolamide HCl 2% Ophth Soln 10 ml Bottle EA EYE SCH (09:18)
[2019-09-26] MEDS: FLUoxetine HCl 20 MG CAP PO SCH (09:18)
[2019-09-26] MEDS: Cyanocobalamin (Vitamin B-12) 1,000 MCG TAB PO SCH (09:18)
[2019-09-26] MEDS: Oxybutynin ER 5 MG TAB PO SCH (09:21)
[2019-09-26 11:40] VITALS: BP 130/63; TEMP 98.8
[2019-09-26] MEDS: traMADol HCl 50 MG TAB PO PRN (13:25)
--- NOTE | 2019-09-27 09:48 | DIS ---
DATE OF ADMISSION: 09/21/2019 DATE OF DISCHARGE: 09/26/2019 DISCHARGE DIAGNOSES: 1. Acute hypoxic respiratory failure. 2. Chronic obstructive pulmonary disease with exacerbation. 3. Right upper quadrant abdominal pain. 4. Musculoskeletal chest pain. 5. Hypertension. 6. History of atrial flutter. 7. Coronary artery disease. HISTORY OF PRESENT ILLNESS: The patient is an 89-year-old male with a history of COPD, who presented to the hospital through the emergency department. He had recently been admitted to the hospital with COPD exacerbation, was discharged without any home oxygen requirements. However, he returned with worsening shortness of breath and complained of some right upper quadrant abdominal pain. His initial workup included a CT abdomen and pelvis, which revealed evidence of some focal inflammation of liver concerning for possible focal steatohepatitis. He had a chest x-ray which showed no evidence of any acute processes. HOSPITAL COURSE: The patient was admitted to the hospital, seen in consultation by Pulmonary. He had nebulizer treatments, low-dose steroids and subsequently had significant improvement. His abdominal pain tended to migrate around to chest pain, which was clearly tender to palpation and clearly musculoskeletal in nature and relatively mild. He was able to come off any supplemental oxygen, was breathing comfortably with no tachypnea and was felt to be stable for discharge. He was seen by Palliative Care and was clearly made DNAR. PHYSICAL EXAMINATION: VITAL SIGNS: At the time of discharge, temperature is 98.8, pulse 79, respirations 16, O2 saturation 93% to 96% on room air, BP 130/63. GENERAL: Awake, alert, oriented, pleasant, and cooperative. HEART: Regular rate and rhythm. LUNGS: Diminished but clear with no wheezes. Chest wall has some tenderness to palpation mostly along the parasternal areas. ABDOMEN: Soft and nontender. EXTREMITIES: No edema. DISPOSITION: The patient is discharged back to the nursing facility. ACTIVITY: As tolerated. He will remain on a heart healthy diet. MEDICATIONS: Include; 1. DuoNeb p.r.n. 2. Pantoprazole 40 mg daily. 3. Prednisone 20 mg daily for 4 days. 4. Docusate 100 mg daily. 5. Latanoprost eye drops one drop to each eye at bedtime. 6. Spiriva 1 inhalation daily. 7. Simvastatin 10 mg one p.o. daily. 8. Fluticasone/salmeterol 500/50 one inhalation b.i.d. 9. Oxybutynin ER 5 mg one p.o. daily. 10. Gabapentin 300 mg one p.o. t.i.d. 11. Terazosin 10 mg daily. 12. Fluoxetine 20 mg daily. 13. Dutasteride 0.5 mg one p.o. daily. 14. Montelukast 10 mg one p.o. at bedtime. 15. Aspirin 81 mg daily. 16. Brimonidine/dorzolamide/PF one drop to each eye t.i.d. 17. Albuterol HFA p.r.n. 18. Vitamin D3 one p.o. daily. 19. Diltiazem 30 mg t.i.d. 20. Folic acid 1 mg daily. 21. B12 1000 mcg daily. 22. Acetaminophen 325 p.r.n. 23. Thiamine 100 mg daily. 24. Naproxen 250 b.i.d. p.r.n. He is to follow up with [facility] and he can return to hospital at anytime should he has the need to do so. TIME SPENT: Time spent in discharge activities was greater than 30 minutes. Job ID: [id number]
== END 2019-09-26 15:20 | DRG 189 ==
LOC: ERS 00:36 → ONC 03:22
PROVIDERS: ADMIT Internal Medicine; ATTEND Internal Medicine
DX: J96.01 Acute respiratory failure with hypoxia (principal); J44.1 Chronic obstructive pulmonary disease with (acute) exacerbation; I48.92 Unspecified atrial flutter; R07.89 Other chest pain; I10 Essential (primary) hypertension; E78.5 Hyperlipidemia, unspecified; H40.9 Unspecified glaucoma; K21.9 Gastro-esophageal reflux disease without esophagitis; G89.29 Other chronic pain; F17.210 Nicotine dependence, cigarettes, uncomplicated; D64.9 Anemia, unspecified; I25.10 Atherosclerotic heart disease of native coronary artery without angina pectoris; Z51.5 Encounter for palliative care; N40.0 Benign prostatic hyperplasia without lower urinary tract symptoms; F41.9 Anxiety disorder, unspecified; F10.10 Alcohol abuse, uncomplicated; F31.9 Bipolar disorder, unspecified; Z90.49 Acquired absence of other specified parts of digestive tract; Z79.01 Long term (current) use of anticoagulants
CPT/HCPCS: 36415; 36416; 71045; 74177; 80048; 80053; 81003; 81015; 83605; 83690; 84484; 85025; 87086; 93005; 94640; 96374; J1650; J1956; J2270; J2405; J2920; J2930; J3475; J7512; J7620; Q9967; S0028

== ENCOUNTER 2020-05-07 08:48 | Inpatient (IN) | payer MEDICARE ==
[2020-05-07] MEDS ORDERED: Dexamethasone 4 mg/ml Vial ONE (09:24)
[2020-05-07] MEDS ORDERED: Magnesium 2 GM/50 ML BAG (IN WATER) ONE (09:24)
[2020-05-07] MEDS ORDERED: Terbutaline Sulfate 1 MG/ML VIAL ONE (09:25)
[2020-05-07 09:34] LABS: #Lymphocytes 1.1 thou/uL (1.20-3.40); #Monocytes 0.7 thou/uL (0.11-0.59); #Neutrophils 9.3 thou/uL (1.40-6.50); %Basophils 0.1 % (0.0-1.0); %Eosinophils 0.2 % (0.0-10.0); %Monocytes 6.4 % (0.0-10.0); %Neutrophils 83.3 % (42.0-75.0); Hemoglobin 10.8 g/dL (14.0-18.0); Mean Corpuscular HGB CONC 30.6 g/dL (32.0-36.0); Mean Corpuscular Hemoglobin 28.7 pg (27.0-31.0); Mean Corpuscular Volume 93.8 fL (78.0-98.0); Platelet Count 205 thou/uL (130-400); Red Blood Cell (RBC) Count 3.77 mill/uL (4.70-6.10); White Blood Cell (WBC) Count 11.2 thou/uL (4.8-10.8)
[2020-05-07 09:55] LABS: ALT (SGPT) 22 U/L (8-55); AST (SGOT) 34 U/L (5-34); Albumin 3.3 g/dL (3.4-4.8); Alkaline Phosphatase 94 U/L (40-110); Anion Gap 18 mmol/L (10-20); BUN (Urea Nitrogen) 23 mg/dL (8.4-25.7); Bilirubin, Total 0.3 mg/dL (0.2-1.2); CK (CPK) 93 U/L (30-200); Calc. Creatinine Clearance 0 mL/min (70-130); Calcium 9.3 mg/dL (7.8-10.44); Carbon Dioxide 24 mmol/L (23-31); Chloride 104 mmol/L (98-107); Estimated GFR-MDRD 83; Globulin 3.4 g/dL (2.4-3.5); Glucose 108 mg/dL (83-110); Potassium 4.3 mmol/L (3.5-5.1); Protein, Total 6.7 g/dL (5.8-8.1); Sodium 142 mmol/L (136-145)
--- NOTE | 2020-05-07 09:55 | RAD ---
FRONTAL RADIOGRAPH CHEST: DATE: 05/07/2020. COMPARISON: 11/18/2019. HISTORY: Shortness of breath, COVID positive patient. FINDINGS: There is atherosclerotic calcification in the aortic arch. The cardiac silhouette is enlarged. Ther e is extensive new interstitial opacity with superimposed ground-glass disease within the mid left césar ng zone laterally, the right perihilar region, and the medial aspect of the right upper lobe, and wit hin both lung bases, right greater than left. No pneumothorax or large volume pleural effusion. IMPRESSION: Interval development of significant diffuse interstitial opacity with superimposed bilateral ground-g lass disease suspicious for multilobar COVID pneumonia given provided history. POS: [facility]
[2020-05-07] MEDS ORDERED: Sodium Chloride 0.9% 200 ML ONE (11:00)
[2020-05-07] MEDS ORDERED: cefTRIAXone\\ROCEPHIN 2 GM VIAL ONE (11:00)
[2020-05-07] MEDS ORDERED: Azithromycin 500 MG VIAL ONE (11:00)
[2020-05-07 12:39] LABS: Lactic Acid 1.4 mmol/L (0.5-2.2)
[2020-05-07] MEDS ORDERED: Lorazepam 2 MG/ML VIAL ONE (12:58)
[2020-05-07] MEDS ORDERED: Guaifenesin DM 100-10/5 ML UDCUP PO PRN (13:00)
[2020-05-07] MEDS ORDERED: Ondansetron PF 4 MG/2 ML Vial IVP PRN (13:00)
[2020-05-07] MEDS ORDERED: Senokot S 8.6-50 MG TAB PO PRN (13:00)
[2020-05-07] MEDS ORDERED: Ondansetron ODT 4 MG TAB PO PRN (13:00)
[2020-05-07] MEDS ORDERED: Albuterol Sulfate 2.5 mg/3 ml Neb NEB PRN (13:11)
[2020-05-07] MEDS ORDERED: REMDESIVIR (EUA) 200 MG in Sodium Chloride 0.9% 250 ML 210 ML IV SCH (14:00)
[2020-05-07] MEDS ORDERED: Albuterol 200 PUFF (6.7GM INHALER) INH PRN (17:23)
[2020-05-07] MEDS: Gabapentin 300 MG CAP PO SCH ×2 (18:14→20:59)
[2020-05-07 18:16] VITALS: BMI 20.5
[2020-05-07 18:30] LABS: Bacteria/HPF None Seen HPF (None Seen); Bilirubin Negative (Negative); Blood, Urine Negative (Negative); Clarity Clear (Clear); Glucose, Urine (Dipstick) Normal (Negative); Ketone, Urine Negative (Negative); Leukocyte Negative Leu/uL (Negative); Nitrite Negative (Negative); Protein, Urine (Dipstick) 30 mg/dL (Neg-Trace); RBC/HPF 0-3 HPF (0-3); Specific Gravity, Urine 1.028 (1.002-1.036); Squamous Epithelial 0-3 HPF (0-3); Urobilinogen Normal mg/dL (Less than 2); WBC/HPF 0-3 HPF (0-3)
[2020-05-07] MEDS: methylPREDNISolone Sod Succ 40 MG VIAL IVP SCH ×2 (18:58→23:54)
[2020-05-07] MEDS: Mometasone 200 MCG/Formoterol 5 MCG 120 PUFF INHALER INH SCH (18:58)
[2020-05-07] MEDS: Albuterol 200 PUFF (6.7GM INHALER) INH SCH (20:58)
[2020-05-07] MEDS: Doxycycline 100 MG CAP PO SCH (20:58)
[2020-05-07] MEDS ORDERED: Famotidine 20 MG TAB PO SCH (21:00)
[2020-05-07] MEDS ORDERED: Atorvastatin Calcium 10 MG TAB PO SCH (21:00)
[2020-05-07] MEDS ORDERED: Montelukast Sodium 10 mg Tablet PO SCH (21:00)
[2020-05-07] MEDS: Enoxaparin Sodium 40 MG/0.4 ML SYRINGE SC SCH (21:30)
[2020-05-08] MEDS ORDERED: Lorazepam 2 MG/ML VIAL SLOW IVP SCH (01:15)
[2020-05-08] MEDS: Albuterol 200 PUFF (6.7GM INHALER) INH SCH (01:52)
[2020-05-08] MEDS: Mometasone 200 MCG/Formoterol 5 MCG 120 PUFF INHALER INH SCH (01:55)
--- NOTE | 2020-05-08 04:58 | HP ---
PRIMARY CARE PHYSICIAN: Jayesh Barillas. CHIEF COMPLAINT: Shortness of breath with hypoxia. HISTORY OF PRESENT ILLNESS: This is an 89-year-old male with a history of dementia, COPD, hypertension, hyperlipidemia, and coronary artery disease, resident of [facility]. He has had progression of his dementia over the last year. He was diagnosed positive with COVID on last . He has had increasing respiratory distress, presented to the emergency room, was found to be hypoxic in the mid 80s, on 6 L nasal cannula, increased respiratory work of breathing. The patient was put on high-flow oxygen with improvement in his oxygen saturations. He denies any complaints at all. All history is from the chart and from talking to the ER doctor. The ER doctor did talk to his medical power of manager simulation, which is his niece, Ms. Maliha Cobos, and she did confirm that the patient is a do not attempt resuscitation and is not to be intubated. She also deferred central line placement or any aggressive interventions, but did want him to be treated with oxygen. The patient improved some with steroids, terbutaline, and magnesium in the emergency room, and is now currently breathing easier on the high-flow oxygen. REVIEW OF SYSTEMS: Unable to obtain secondary to the patient's mental status. PAST MEDICAL HISTORY: 1. COPD, unknown if he is usually on any oxygen at the alf. 2. Possible coronary artery disease. 3. Hypertension. 4. Hyperlipidemia. 5. Anemia. 6. Chronic back pain. 7. Glaucoma. 8. Benign prostatic hyperplasia. 9. Gastroesophageal reflux disease. PAST SURGICAL HISTORY: 1. Unknown cardiac procedure. 2. Laparoscopic back surgery. 3. Right eye surgery. 4. Cholecystectomy. PAST PSYCHIATRIC HISTORY: Anxiety, depression, and bipolar disorder. SOCIAL HISTORY: The patient previously was an alcoholic and smoked a pack of cigarettes per day; however, he is not doing that now that he is in the alf. He is a do not attempt resuscitation. His medical power of manager simulation is his niece, Maliha Cobos. I did try contacting her for the history and physical, I was unable to get through to her on her phone, but the ER doctor talked to her earlier in the day and confirmed the do not attempt resuscitation. FAMILY HISTORY: Unknown. ALLERGIES: NO KNOWN DRUG ALLERGIES. CURRENT MEDICATIONS: 1. Gabapentin 300 mg 3 times a day. 2. Terazosin 10 mg daily. 3. Aspirin 81 mg daily. 4. Simvastatin 20 mg daily. 5. Fluoxetine 20 mg daily. 6. Vitamin C 500 mg daily. 7. Wixela Inhub 500/50 mcg two puffs twice a day. 8. DuoNeb twice a day. 9. Prednisone 20 mg daily. 10. Dutasteride 0.5 mg daily. 11. Oxybutynin 5 mg daily. 12. Protonix 40 mg daily. 13. Thiamine 100 mg daily. 14. Vitamin D3 of 400 units daily. 15. Latanoprost 1 drop in each eye daily. 16. Brimonidine/dorzolamide ophthalmic drop 1 drop in each eye daily. 17. Diltiazem 30 mg 3 times a day. 18. Montelukast 10 mg daily. 19. ProAir inhaler 2 puffs every 4 hours as needed. 20. Levaquin 750 mg daily, uncertain how long he has been on this. PHYSICAL EXAMINATION: VITAL SIGNS: Blood pressure 128/66, pulse 87, respirations 16, temperature 98.9, O2 saturation 100% on high-flow O2. GENERAL: This is a well-developed, well-nourished male, in no acute distress. HEENT: Pupils equal, round, and reactive to light. Oropharynx clear without lesions, erythema, or exudate. NECK: Supple. No lymphadenopathy. No thyroid nodules or enlargement. No JVD. HEART: Regular rate and rhythm. No murmurs, rubs, or gallops. LUNGS: The patient has some bilateral crackles in the bases and some mild wheezing scattered throughout his lung eduardo, but no severe increased work of breathing at this time. ABDOMEN: Soft, nontender to palpation. Normoactive bowel sounds. No hepatosplenomegaly or other masses. EXTREMITIES: The patient does have some 1+ pitting edema in the bilateral feet and ankles. No other extremity abnormalities. SKIN: No rashes or other lesions noted. NEUROLOGIC: The patient moves all extremities equally. No facial droop. PSYCHIATRIC: The patient is alert. He is oriented to person. He knows the year. He does think he is in [place]. He does not understand his situation. He is a little bit belligerent, does not want anybody touching him, does not want the O2 saturation monitor on his ear, but mostly is staying in the bed. LABORATORY DATA: CBC with a white blood cell count of 11,000, hemoglobin 10, hematocrit 35, platelet count 205, neutrophils 83%. Complete metabolic panel is notable for an albumin of 3.3, the rest is normal. Lactic acid was initially elevated at 3.8, down to 1.4 after fluid resuscitation. Troponin is negative x1. Chest x-ray, I did review the chest x-ray done in the emergency room along with the radiologist's report. It does show some diffuse interstitial opacities with superimposed bilateral ground-glass disease, suspicious for multilobar COVID pneumonia. EKG done in the emergency room shows normal sinus rhythm without any significant ST-segment abnormalities or arrhythmias. Normal EKG. ASSESSMENT: 1. COVID pneumonia. 2. Acute respiratory failure with hypoxia, now requiring high-flow oxygen. The patient is a do not attempt resuscitation given his combativeness and not wanting to have the oxygen monitor on him all the time. I think it is reasonable to leave him on the high-flow oxygen and then check O2 sats with vital signs. We will continue inhaler treatments. We will put him on Solu-Medrol high dose given that he is normally on steroids at baseline. We will start remdesivir. His renal function is sufficient to be able to take that medicine. 3. Chronic obstructive pulmonary disease. We will resume the patient's Spiriva and inhalers as needed. 4. Hypertension. Resume the patient's blood pressure medications. 5. Hyperlipidemia. Resume the patient's statin. 6. Gastrointestinal prophylaxis and history of gastroesophageal reflux disease. We will restart the patient's Protonix. 7. Deep venous thrombosis prophylaxis. We will put the patient on twice a day Lovenox. 8. Code status. The patient is a do not attempt resuscitation. His medical decision maker is his niece, Maliha Cobos. The patient is critically ill. Given the serious underlying medical problems and the severity of hypoxia, he has a good chance of this progressing. I will get Palliative Care involved. Should patient progress in his disease, it would be reasonable to convert him over to hospice. However, should he respond to the steroids and remdesivir, then hopefully he will improve over the next week or so. Job ID: [id number] MTDD
[2020-05-08] MEDS: methylPREDNISolone Sod Succ 40 MG VIAL IVP SCH ×2 (05:20→12:37)
[2020-05-08 06:50] LABS: Hemoglobin 10.7 g/dL (14.0-18.0); Mean Corpuscular HGB CONC 31.9 g/dL (32.0-36.0); Mean Corpuscular Hemoglobin 29.2 pg (27.0-31.0); Mean Corpuscular Volume 91.7 fL (78.0-98.0); Mean Platelet Volume 9.5 fL (7.4-10.4); Platelet Count 185 thou/uL (130-400); Red Blood Cell (RBC) Count 3.68 mill/uL (4.70-6.10); White Blood Cell (WBC) Count 8.5 thou/uL (4.8-10.8)
[2020-05-08 07:08] LABS: Anion Gap 13 mmol/L (10-20); BUN (Urea Nitrogen) 26 mg/dL (8.4-25.7); Calc. Creatinine Clearance 52 mL/min (70-130); Calcium 8.9 mg/dL (7.8-10.44); Carbon Dioxide 27 mmol/L (23-31); Chloride 106 mmol/L (98-107); Estimated GFR-MDRD Greater than 90; Glucose 89 mg/dL (83-110); Potassium 4.2 mmol/L (3.5-5.1); Sodium 142 mmol/L (136-145)
[2020-05-08 07:10] LABS: ALT (SGPT) 19 U/L (8-55); AST (SGOT) 28 U/L (5-34); Alkaline Phosphatase 78 U/L (40-110); Bilirubin, Direct 0.2 mg/dL (0.1-0.3); Bilirubin, Total 0.2 mg/dL (0.2-1.2)
[2020-05-08 08:20] LABS: Band 20 % (5-11); Lymphocytes 8 % (21-51); MDiff Complete? YES; Metamyelocyte 1 % (0-0); Monocytes 1 % (0-10); Neutrophil 69 % (42-75); Platelet Morphology Comment Appears Adequate; Polychromasia SLIGHT = 2-3 cells (100X) (0-2/hpf); Reactive Lymphocytes 1 % (0-10); Reflex for Review?? NO; Schistocytes MODERATE= 6-15 cells (100X) (0-1/hpf); Spherocytes SLIGHT = 1-5 cells (100X) (None Seen)
[2020-05-08] MEDS ORDERED: Aspirin 81 mg Enteric Coated Tablet PO SCH (09:00)
[2020-05-08] MEDS ORDERED: Terazosin HCl 5 MG CAP PO SCH (09:00)
[2020-05-08] MEDS ORDERED: Oxybutynin ER 5 MG TAB PO SCH (09:00)
[2020-05-08] MEDS ORDERED: FLU VACC QS2020-21(65YR UP)/PF 240 MCG/0.7 ML SYRINGE IM ONE (09:00)
[2020-05-08] MEDS ORDERED: FLUoxetine HCl 20 MG CAP PO SCH (09:00)
[2020-05-08] MEDS: Enoxaparin Sodium 40 MG/0.4 ML SYRINGE SC SCH (09:22)
[2020-05-08] MEDS: Doxycycline 100 MG CAP PO SCH (09:31)
[2020-05-08] MEDS: Gabapentin 300 MG CAP PO SCH (09:31)
[2020-05-08 10:50] VITALS: BP 168/66; TEMP 97.9
[2020-05-08] MEDS: PROVENTIL INHALER 6.7 G (200 INHALATIONS) INH SCH ×2 (12:00)
--- NOTE | 2020-05-08 13:12 | PDOC.HOSPP ---
- Subjective Encounter Date: 05/08/20 Encounter Time: 09:45 Subjective: is non verbal and appears very sick, wheezing, tachyneic with spo2 in the 80's is not oriented - Objective Vital Signs & Weight: Vital Signs (12 hours) Temp Pulse Resp BP Pulse Ox 05/08/20 09:00 97.9 F 77 20 168/66 H 99 05/08/20 05:00 74 20 100 Weight Admit Weight 131 lb 8 oz Weight 131 lb 8 oz Result Diagrams: 05/08/20 06:38 05/08/20 06:38 Hospitalist ROS - Medication Medications: Active Medications Generic Name Dose Route Start Last Admin Trade Name Freq PRN Reason Stop Dose Admin Albuterol Sulfate 2 puff 05/08/20 10:30 05/08/20 12:00 Proventil Inhaler 6.7 G (200 Inhalations) INH Not Given [id number] ONEYDA Aspirin 81 mg 05/08/20 09:00 05/08/20 09:31 Aspirin 81 Mg Enteric Coated Tablet PO Not Given DAILY ONEYDA Atorvastatin Calcium 10 mg 05/07/20 21:00 05/07/20 20:58 Atorvastatin Calcium 10 Mg Tab PO Not Given HS ONEYDA Diltiazem HCl 30 mg 05/07/20 15:00 05/08/20 09:31 Diltiazem Hcl 30 Mg Tablet PO Not Given TID ONEYDA Doxycycline Hyclate 100 mg 05/07/20 21:00 05/08/20 09:31 Doxycycline 100 Mg Cap PO Not Given BID NOEYDA Enoxaparin Sodium 40 mg 05/07/20 21:00 05/08/20 09:22 Enoxaparin Sodium 40 Mg/0.4 Ml Syringe SC 40 mg 0900,2100 ONEYDA Administration Fluoxetine HCl 20 mg 05/08/20 09:00 05/08/20 09:31 Fluoxetine Hcl 20 Mg Cap PO Not Given DAILY ONEYDA Gabapentin 300 mg 05/07/20 15:00 05/08/20 09:31 Gabapentin 300 Mg Cap PO Not Given TID ONEYDA Methylprednisolone Sodium Succinate 40 mg 05/07/20 18:00 05/08/20 12:37 Methylprednisolone Sod Succ 40 Mg Vial IVP 40 mg Q6HR ONEYDA Administration Mometasone Furoate/Formoterol Fumar 2 puff 05/07/20 18:30 05/08/20 01:55 Mometasone 200 Mcg/Formoterol 5 Mcg 120 Puff Inhaler INH Not Given BID-RT ONEYDA Montelukast Sodium 10 mg 05/07/20 21:00 05/07/20 20:59 Montelukast Sodium 10 Mg Tablet PO Not Given HS ONEYDA Oxybutynin Chloride 5 mg 05/08/20 09:00 05/08/20 09:32 Oxybutynin Er 5 Mg Tab PO Not Given DAILY ONEYDA Pantoprazole Sodium 40 mg 05/08/20 09:00 05/08/20 09:32 Pantoprazole 40 Mg Tab PO Not Given DAILY ONEYDA Terazosin HCl 10 mg 05/08/20 09:00 05/08/20 09:32 Terazosin Hcl 5 Mg Cap PO Not Given DAILY ONEYDA - Exam General Appearance: ill appearing Eye: PERRL, anicteric sclera ENT: no oropharyngeal lesions, dry oral mucosa Neck: supple, no JVD Heart: RRR, no gallops Respiratory: rales, rhonchi, wheezes Gastrointestinal: soft, non-tender, non-distended, normal bowel sounds Extremities: no cyanosis, no edema Neurological: cranial nerve grossly intact, no new deficit Hosp A/P (1) Acute respiratory failure with hypoxemia Code(s): J96.01 - ACUTE RESPIRATORY FAILURE WITH HYPOXIA Status: Acute (2) Pneumonia due to COVID-19 virus Code(s): U07.1 - COVID-19; J12.89 - OTHER VIRAL PNEUMONIA Status: Acute (3) COPD exacerbation Code(s): J44.1 - CHRONIC OBSTRUCTIVE PULMONARY DISEASE W (ACUTE) EXACERBATION Status: Acute (4) HTN (hypertension) Code(s): I10 - ESSENTIAL (PRIMARY) HYPERTENSION Status: Acute Qualifiers: Hypertension type: essential hypertension Qualified Code(s): I10 - Essential (primary) hypertension (5) Physical deconditioning Code(s): R53.81 - OTHER MALAISE Status: Acute (6) BPH (benign prostatic hyperplasia) Code(s): N40.0 - BENIGN PROSTATIC HYPERPLASIA WITHOUT LOWER URINRY TRACT SYMP Status: Chronic Qualifiers: Lower urinary tract symptom presence: unspecified whether lower urinary tract symptoms present Qualified Code(s): N40.0 - Benign prostatic hyperplasia without lower urinary tract symptoms (7) CAD (coronary artery disease) Code(s): I25.10 - ATHSCL HEART DISEASE OF [place] CORONARY ARTERY W/O ANG PCTRS Status: Chronic Qualifiers: Coronary Disease-Associated Artery/Lesion type: [place] artery [place] vs. transplanted heart: [place] heart Associated angina: without angina Qualified Code(s): I25.10 - Atherosclerotic heart disease of [place] coronary artery without angina pectoris (8) Dementia Code(s): F03.90 - UNSPECIFIED DEMENTIA WITHOUT BEHAVIORAL DISTURBANCE Status: Chronic Qualifiers: Dementia type: unspecified type Dementia behavioral disturbance: without behavioral disturbance Qualified Code(s): F03.90 - Unspecified dementia without behavioral disturbance (9) Chronic anemia Code(s): D64.9 - ANEMIA, UNSPECIFIED Status: Chronic - Plan patient appears to be in terminal illness, obtunded, tachyneic and may not survive this hospitalization I spoke to his neice over phone and gave full updates including very poor prognosis, she wants in hospice and not to suffer. She has chosen [facility] and a referal will be sent shortly for likely inpt hospice if he qualifies very poor prognosis nebs, steroids, high flow O2, remdesivir, doxy and lovenox until he is moved to inpt hospice d/w CM
[2020-05-08] MEDS ORDERED: REMDESIVIR (EUA) 100 MG in Sodium Chloride 0.9% 250 ML 230 ML IV SCH (14:00)
--- NOTE | 2020-05-08 15:00 | DIS ---
DATE OF ADMISSION: 05/07/2020 DATE OF DISCHARGE: 05/08/2020 DISCHARGE DISPOSITION: To inpatient hospice via [facility]. PRIMARY DISCHARGE DIAGNOSES: Acute respiratory failure with hypoxia, COVID-19 pneumonia, chronic obstructive pulmonary disease exacerbation, failure to thrive, and dementia. SECONDARY DISCHARGE DIAGNOSES: Hypertension, deconditioning, benign prostatic hyperplasia, coronary artery disease, chronic anemia. PROCEDURES DONE DURING HOSPITALIZATION: Chest x-ray done on the day of admission showed diffuse interstitial opacity with superimposed bilateral ground-glass disease suspicious for multilobar COVID pneumonia. Blood cultures x2, no growth. H and H 10 and 33, platelet count 185, white count of 8 with 69% neutrophils, 20% bands. BUN 26, creatinine 0.8. Lactic acid 3.8. DISCHARGE PLAN: The patient is being discharged to inpatient hospice. BRIEF COURSE DURING HOSPITALIZATION: The patient initially was transferred from [facility] early this morning with complaints of shortness of breath and worsening hypoxia. The patient had acquired COVID last . He has had underlying COPD, which is steroid and oxygen dependent, prior to him getting COVID. He was essentially obtunded, nonverbal, and was in severe respiratory failure with hypoxia. The patient was saturating in the 80s on high-flow oxygen. In view of the patient's status being do not attempt to resuscitate, I have had discussion with his niece, Ms. Jett regarding poor prognosis this morning. She wanted him to be transitioned to inpatient hospice with [facility]. This has been accomplished with Case Management consultation. He will be shortly discharged to inpatient hospice. Please note, the patient's prognosis is very poor. Please see a [id number] documentation for the day of discharge on [employer]. Job ID: [id number]
--- NOTE | 2020-05-11 17:08 | EKG ---
Test Reason : ER Blood Pressure : / mmHG Vent. Rate : 085 BPM Atrial Rate : 394 BPM P-R Int : 118 ms QRS Dur : 068 ms QT Int : 310 ms P-R-T Axes : 055 041 -04 degrees QTc Int : 368 ms Undetermined rhythm Nonspecific T wave abnormality Abnormal ECG Confirmed by JONES CISNEROS DO ([id number]), editor school photograph MEDARDO HYATT ([id number]) on 05/11/2020 5:07:46 PM Referred By: Confirmed By:JONES CISNEROS DO
== END 2020-05-08 14:41 | disposition hospice, inpatient (51) | DRG 177 ==
LOC: ERS 08:48 → ERHOLD 11:36 → T4-B 16:37
PROVIDERS: ADMIT Internal Medicine; ATTEND Internal Medicine
PROC: XW033E5 Introduction of Remdesivir Anti-infective into Peripheral Vein, Percutaneous Approach, New Technology Group 5 (ICD-10-PCS; principal; 2020-05-07)
DX: U07.1 COVID-19 (principal); J96.01 Acute respiratory failure with hypoxia; J12.89 Other viral pneumonia; J44.0 Chronic obstructive pulmonary disease with (acute) lower respiratory infection; F03.90 Unspecified dementia, unspecified severity, without behavioral disturbance, psychotic disturbance, mood disturbance, and anxiety; R53.81 Other malaise; R62.7 Adult failure to thrive; I25.10 Atherosclerotic heart disease of native coronary artery without angina pectoris; N40.0 Benign prostatic hyperplasia without lower urinary tract symptoms; D64.9 Anemia, unspecified; E78.5 Hyperlipidemia, unspecified; K21.9 Gastro-esophageal reflux disease without esophagitis; I10 Essential (primary) hypertension; F17.210 Nicotine dependence, cigarettes, uncomplicated; F31.9 Bipolar disorder, unspecified; F41.9 Anxiety disorder, unspecified; Z79.899 Other long term (current) drug therapy; Z79.2 Long term (current) use of antibiotics; Z79.82 Long term (current) use of aspirin; Z98.890 Other specified postprocedural states; Z90.49 Acquired absence of other specified parts of digestive tract; Z79.52 Long term (current) use of systemic steroids; Z79.51 Long term (current) use of inhaled steroids; Z51.5 Encounter for palliative care; Z68.20 Body mass index [BMI] 20.0-20.9, adult
CPT/HCPCS: 36415; 71045; 80048; 80053; 80076; 82550; 83605; 84484; 85025; 85060; 87040; 87077; 87086; 93005; 94760; J0456; J0696; J1100; J1650; J2060; J2920; J3105; J3475; J3490; J7050

== ENCOUNTER 2020-05-08 14:49 | Inpatient (IN) | payer OTHER ==
[2020-05-08] MEDS ORDERED: Ibuprofen 200 MG TAB PO PRN (16:14)
[2020-05-08] MEDS ORDERED: Ondansetron PF 4 MG/2 ML Vial IVP PRN (16:15)
[2020-05-08] MEDS ORDERED: Milk Of Magnesia 30 ML UDCUP PO PRN (16:15)
[2020-05-08] MEDS ORDERED: Hyoscyamine Sulfate SL 0.125 mg Tablet SL PRN (16:15)
[2020-05-08] MEDS ORDERED: Morphine IR Tab 15 MG TAB PO PRN (16:15)
[2020-05-08] MEDS ORDERED: Acetaminophen 325 MG TAB PO PRN (16:15)
[2020-05-08] MEDS ORDERED: Haloperidol Lactate 5 MG/ML VIAL SLOW IVP PRN (16:15)
[2020-05-08] MEDS ORDERED: Scopolamine 1.5 mg/72 hour Patch TOP PRN ×2 (16:15)
[2020-05-08] MEDS ORDERED: Ondansetron ODT 4 MG TAB PO PRN (16:15)
[2020-05-08] MEDS ORDERED: Morphine 4 MG/ML VIAL SLOW IVP PRN (16:15)
[2020-05-08] MEDS ORDERED: diphenhydrAMINE 50 MG/ML VIAL IVP PRN (16:15)
[2020-05-08] MEDS ORDERED: Loperamide HCl 2 MG CAP PO PRN (16:15)
[2020-05-08] MEDS ORDERED: diphenhydrAMINE 25 MG CAP PO PRN (16:15)
[2020-05-08] MEDS ORDERED: chlorproMAZINE HCl 50 MG/2 ML AMP IM PRN ×2 (16:15)
[2020-05-08] MEDS ORDERED: Lorazepam 2 MG/ML VIAL SLOW IVP PRN (16:15)
[2020-05-08] MEDS ORDERED: Acetaminophen 650 MG Suppository PR PRN (16:15)
[2020-05-08] MEDS ORDERED: Senokot 8.6 MG TAB PO PRN (16:15)
[2020-05-08] MEDS ORDERED: Lorazepam 1 MG TAB PO PRN ×2 (16:15)
[2020-05-08] MEDS ORDERED: Haloperidol 1 MG TAB PO PRN (16:15)
[2020-05-08] MEDS ORDERED: chlorproMAZINE HCl 25 MG in Sodium Chloride 0.9% 50 ML IVPB PRN (16:15)
[2020-05-08] MEDS ORDERED: Promethazine HCl 25 MG SUPP PR PRN ×2 (16:15)
[2020-05-08] MEDS ORDERED: Zolpidem Tartrate 5 MG TAB PO PRN (16:15)
[2020-05-08] MEDS ORDERED: Morphine 10 MG/0.5 ML ORAL SYRINGE SL PRN (16:15)
[2020-05-08] MEDS: Lorazepam 2 MG/ML VIAL SLOW IVP PRN ×2 (17:37→23:43)
[2020-05-08] MEDS: Morphine 4 MG/ML VIAL SLOW IVP PRN (19:15)
--- NOTE | 2020-05-08 19:34 | HP ---
CHIEF COMPLAINT: Shortness of breath. HISTORY OF PRESENT ILLNESS: Mr. Sarkar is an unfortunate 89-year-old man who presented this morning to the hospital from [facility] with a chief complaint of worsening shortness of breath with hypoxia. He was diagnosed with COVID six days ago and had been having increasing respiratory distress at that time. The hospitalist team had called and spoke with the patient's medical power of collection analyst, his niece Ms. Maliha Cobos, who confirmed that the patient was a do not resuscitate and do not intubate. She wanted comfort measures only with no aggressive treatment. During his hospital stay, he began experiencing progressively worsening shortness of breath and became more obtunded. Hospitalist team discussed his overall prognosis with his niece, who agreed to transition him to hospice. At the time of my examination, the patient is still nonverbal. He qualifies for inpatient hospice, but given his COVID-19 status, must remain here in the hospital to undergo treatment and transition to . HOSPITAL COURSE: He was started on remdesivir and Solu-Medrol. He was also started on high-flow nasal cannula, which helped with his symptoms. However, as previously described, he continued to deteriorate and was then transitioned to comfort measures and hospice. PAST MEDICAL HISTORY: 1. COPD. 2. Coronary artery disease. 3. Hypertension. 4. Hyperlipidemia. 5. Anemia. 6. Chronic pain. 7. Glaucoma. 8. BPH. 9. GERD. PAST SURGICAL HISTORY: 1. Back surgery. 2. Eye surgery. 3. Cholecystectomy. 4. Unspecified cardiac procedure. SOCIAL HISTORY: Prior heavy alcohol and tobacco use. FAMILY HISTORY: Noncontributory. ALLERGIES: NO KNOWN DRUG ALLERGIES. CURRENT MEDICATIONS: 1. Gabapentin. 2. Terazosin. 3. Aspirin. 4. Simvastatin. 5. Fluoxetine. 6. Vitamin C. 7. Wixela inhaled. 8. DuoNeb. 9. Prednisone. 10. Dutasteride. 11. Oxybutynin. 12. Protonix. 13. Thiamine. 14. Vitamin D3. 15. Latanoprost. 16. Brimonidine/dorzolamide. 17. Diltiazem. 18. Montelukast. 19. ProAir (albuterol). 20. Levaquin. REVIEW OF SYSTEMS: Unable to obtain due to altered mental status. PHYSICAL EXAMINATION: VITAL SIGNS: Temperature 97.9, pulse 77, respiratory rate 28, pulse ox 99% on high-flow nasal cannula 40 L a minute with an FiO2 of 50, and blood pressure 168/66. GENERAL: Moderate respiratory distress. The patient is alert, but nonverbal and unable to follow commands. HEENT: Normocephalic and atraumatic. No scleral icterus. Moist mucous membranes are dry. Audible secretions are heard. External ears and nose grossly normal. NECK: Supple without lymphadenopathy or thyromegaly. CARDIOVASCULAR: Normal rate and regular rhythm. No murmurs, rubs, or gallops. PULMONARY: Coarse breath sounds heard throughout. Moderate respiratory distress. GI: Soft, nontender, and nondistended. EXTREMITIES: 1+ pitting edema. No cyanosis noted. SKIN: No rash or lesion. NEUROLOGIC: Unable to assess due to the patient's altered mental status. He is alert and oriented x0. PSYCHIATRIC: Unable to assess due to mental status. ASSESSMENT AND PLAN: Mr. Sarkar is an unfortunate 89-year-old male, who was diagnosed with COVID-19 six days ago. He presented to the hospital this morning with worsening shortness of breath. After he did not improve and his care was discussed with his family that his overall prognosis was very poor, the family elected to transition him to hospice care. [facility] to provide nursing care for him. Given he is COVID positive, he is unable to go to the inpatient hospice facility, so will remain here on [place] with the Family Medicine residency team providing physician oversight. Plan: 1. Acute hypoxic respiratory failure secondary to COVID-19 pneumonia. We will stop all medical treatment for the pneumonia. Comfort measures with Ativan, morphine, and scopolamine have been given to help with respiratory symptoms and secretions. We will continue on high-flow nasal cannula until he is comfortable and slowly wean him off this. I have told the hospice nursing staff that if the patient appears more comfortable on the high-flow nasal cannula, to allow him to remain on it as he will likely pass regardless of the utilization of high-flow nasal cannula. Other medications to be provided as symptoms require. 2. Hypertension. Discontinue medication. 3. Glaucoma. Discontinue medications. 4. Chronic back pain. Pain medication as needed. 5. BPH. We will keep Solorio in place to aid in the care. 6. Chronic obstructive pulmonary disease. Discontinue nebulizer treatments and steroids. Supplemental oxygen and high-flow nasal cannula for symptom management. Morphine and Ativan for agitation and air hunger. DISPOSITION: He is now admitted into inpatient hospice. I anticipate that he will pass in the next 24 to 48 hours. I will call and discuss his care with his niece, Ms. Maliha Cobos and our team will keep her updated as he progresses and transitions. Job ID: [id number]
[2020-05-09] MEDS: Morphine 4 MG/ML VIAL SLOW IVP PRN (02:36)
--- NOTE | 2020-05-09 07:18 | PDOC.FM ---
- Subjective Subjective: Unable to get patient to respond with sternal rub. - Objective MAR Reviewed: Yes Vital Signs & Weight: Vital Signs (12 hours) Temp Pulse Resp BP Pulse Ox 05/08/20 23:52 76 18 97 05/08/20 21:56 97.2 F L 65 18 133/85 98 05/08/20 20:00 97.8 F 92 18 132/90 98 Phys Exam - Physical Examination Sleeping comfortably HEENT: moist MMs Neck: supple Coarse upper airway sounds on exam Cardiovascular: RRR Gastrointestinal: soft, positive bowel sounds Musculoskeletal: no edema, pulses present unable to assess due to mental status Skin: normal turgor Dx/Plan (1) COVID-19 Code(s): U07.1 - COVID-19 Status: Acute (2) Glaucoma Code(s): H40.9 - UNSPECIFIED GLAUCOMA Status: Acute (3) Chronic back pain Code(s): M54.9 - DORSALGIA, UNSPECIFIED; G89.29 - OTHER CHRONIC PAIN Status: Acute (4) Acute respiratory failure with hypoxemia Code(s): J96.01 - ACUTE RESPIRATORY FAILURE WITH HYPOXIA Status: Acute (5) HTN (hypertension) Code(s): I10 - ESSENTIAL (PRIMARY) HYPERTENSION Status: Acute Qualifiers: Hypertension type: essential hypertension Qualified Code(s): I10 - Essential (primary) hypertension (6) BPH (benign prostatic hyperplasia) Code(s): N40.0 - BENIGN PROSTATIC HYPERPLASIA WITHOUT LOWER URINRY TRACT SYMP Status: Chronic Qualifiers: Lower urinary tract symptom presence: unspecified whether lower urinary tract symptoms present Qualified Code(s): N40.0 - Benign prostatic hyperplasia without lower urinary tract symptoms (7) COPD (chronic obstructive pulmonary disease) Status: Chronic Qualifiers: COPD type: chronic bronchitis (8) Dementia Code(s): F03.90 - UNSPECIFIED DEMENTIA WITHOUT BEHAVIORAL DISTURBANCE Status: Chronic Qualifiers: Dementia type: unspecified type Dementia behavioral disturbance: without behavioral disturbance Qualified Code(s): F03.90 - Unspecified dementia without behavioral disturbance - Plan Plan: Mr. Sarkar is an 89 yo M with a history of COPD, CAD, HTN, HLD, Anemia, Chronic back pain, Glaucoma, BPH, and GERD who was admitted for AHRF 2/2 COVID Pna. Assessment: 1. Acute Hypoxic Respiratory Failure 2/2 COVID PNA 2. Hypertension 3. Glaucoma 4. Chronic Back Pain 5. Benign Prostatic Hypertrophy 6. Chronic Obstructive Pulmonary Disease Plan: We are controlling secretions. Treating for air hunger and pain. We will slowly wean the oxygen. We will contact the family. Addendum - Attending - Attending Attestation Date/Time: 05/09/20 7290 I personally evaluated the patient and discussed the management with Dr. Trevino. I agree with the History, Examination, Assessment and Plan documented above with any addition or exceptions noted below. Continue comfort measures. d/c HFNC and start regular NC. anticipate he will pass in the next 24 hours.
[2020-05-09] MEDS: Lorazepam 2 MG/ML VIAL SLOW IVP PRN ×3 (11:00→18:18)
[2020-05-09] MEDS ORDERED: Glycopyrrolate 0.2 MG/ML 5 ML SYRINGE SLOW IVP SCH (11:30)
[2020-05-09] MEDS ORDERED: Glycopyrrolate 1 MG TAB PO SCH (12:00)
[2020-05-09] MEDS: Glycopyrrolate 0.2 MG/ML 5 ML SYRINGE SLOW IVP SCH ×2 (14:24→20:06)
[2020-05-09] MEDS ORDERED: Bisacodyl 10 MG SUPP PR PRN (14:34)
[2020-05-09] MEDS ORDERED: Lorazepam 1 MG TAB PO SCH (17:00)
[2020-05-09] MEDS: Morphine 4 MG/ML VIAL SLOW IVP SCH ×2 (18:17→20:06)
[2020-05-09] MEDS: Lorazepam 2 MG/ML VIAL SLOW IVP SCH (20:06)
[2020-05-10] MEDS: Morphine 4 MG/ML VIAL SLOW IVP SCH ×6 (00:18→21:45)
[2020-05-10] MEDS: Glycopyrrolate 0.2 MG/ML 5 ML SYRINGE SLOW IVP SCH ×4 (00:18→19:45)
[2020-05-10] MEDS: Lorazepam 2 MG/ML VIAL SLOW IVP SCH ×6 (00:19→21:45)
--- NOTE | 2020-05-10 07:01 | PDOC.FM ---
- Subjective Subjective: Unable to arouse patient with sternal rub this morning. - Objective MAR Reviewed: Yes Vital Signs & Weight: Vital Signs (12 hours) Temp Pulse Resp BP Pulse Ox 05/09/20 22:45 97 20 92 L 05/09/20 20:17 98 F 109 H 18 157/62 H 91 L 05/09/20 20:00 91 L Phys Exam - Physical Examination labored breathing but comfortable HEENT: oral pharynx no lesions Neck: supple coarse breath sounds throughout Cardiovascular: RRR Gastrointestinal: soft, non-tender Musculoskeletal: no edema, pulses present unable to assess Lymphatic: no nodes Skin: normal turgor Dx/Plan (1) COVID-19 Code(s): U07.1 - COVID-19 Status: Acute (2) Glaucoma Code(s): H40.9 - UNSPECIFIED GLAUCOMA Status: Acute (3) Chronic back pain Code(s): M54.9 - DORSALGIA, UNSPECIFIED; G89.29 - OTHER CHRONIC PAIN Status: Acute (4) Acute respiratory failure with hypoxemia Code(s): J96.01 - ACUTE RESPIRATORY FAILURE WITH HYPOXIA Status: Acute (5) HTN (hypertension) Code(s): I10 - ESSENTIAL (PRIMARY) HYPERTENSION Status: Acute Qualifiers: Hypertension type: essential hypertension Qualified Code(s): I10 - Essential (primary) hypertension (6) BPH (benign prostatic hyperplasia) Code(s): N40.0 - BENIGN PROSTATIC HYPERPLASIA WITHOUT LOWER URINRY TRACT SYMP Status: Chronic Qualifiers: Lower urinary tract symptom presence: unspecified whether lower urinary tract symptoms present Qualified Code(s): N40.0 - Benign prostatic hyperplasia without lower urinary tract symptoms (7) COPD (chronic obstructive pulmonary disease) Status: Chronic Qualifiers: COPD type: chronic bronchitis (8) Dementia Code(s): F03.90 - UNSPECIFIED DEMENTIA WITHOUT BEHAVIORAL DISTURBANCE Status: Chronic Qualifiers: Dementia type: unspecified type Dementia behavioral disturbance: without behavioral disturbance Qualified Code(s): F03.90 - Unspecified dementia without behavioral disturbance - Plan Plan: Mr. Sarkar is an 89 yo M with a history of COPD, CAD, HTN, HLD, Anemia, Chronic back pain, Glaucoma, BPH, and GERD who was admitted for AHRF 2/2 COVID Pna. Assessment: 1. Acute Hypoxic Respiratory Failure 2/2 COVID PNA 2. Hypertension 3. Glaucoma 4. Chronic Back Pain 5. Benign Prostatic Hypertrophy 6. Chronic Obstructive Pulmonary Disease Plan: Contacted family yesterday, the declined coming up here. We are controlling from pain. Oxygen requirement has increased. He is currently comfortable on medications. Addendum - Attending - Attending Attestation Date/Time: 05/10/20 0656 I personally evaluated the patient and discussed the management with Dr. Trevino I agree with the History, Examination, Assessment and Plan documented above with any addition or exceptions noted below.
[2020-05-10 08:47] VITALS: TEMP 101
[2020-05-11] MEDS: Glycopyrrolate 0.2 MG/ML 5 ML SYRINGE SLOW IVP SCH ×2 (01:03→07:44)
[2020-05-11] MEDS: Morphine 4 MG/ML VIAL SLOW IVP SCH ×3 (01:03→08:42)
[2020-05-11] MEDS: Lorazepam 2 MG/ML VIAL SLOW IVP SCH ×3 (01:04→08:42)
[2020-05-11 01:06] VITALS: BP 78/43
--- NOTE | 2020-05-11 05:38 | PDOC.FM ---
- Subjective Subjective: Pt is unresponsive this morning. - Objective MAR Reviewed: Yes Vital Signs & Weight: Vital Signs (12 hours) Pulse Resp BP Pulse Ox 05/11/20 00:00 114 H 21 H 78/43 L 97 05/10/20 20:00 118 H 17 88/51 L 93 L I&O: 05/09/20 05/10/20 05/11/20 06:59 06:59 06:59 Intake Total 15 Output Total 100 Balance -85 Phys Exam - Physical Examination lethargic dry mucous membranes Neck: supple coarse breath sounds throughout tachycardiac Gastrointestinal: soft, non-tender trace edema, decreased posterior tibial pulses bilaterally unable to assess Lymphatic: no nodes Deviation from normal: unable to assess Deviation from normal: decreased skin turgor Dx/Plan (1) COVID-19 Code(s): U07.1 - COVID-19 Status: Acute (2) Glaucoma Code(s): H40.9 - UNSPECIFIED GLAUCOMA Status: Acute (3) Chronic back pain Code(s): M54.9 - DORSALGIA, UNSPECIFIED; G89.29 - OTHER CHRONIC PAIN Status: Acute (4) Acute respiratory failure with hypoxemia Code(s): J96.01 - ACUTE RESPIRATORY FAILURE WITH HYPOXIA Status: Acute (5) HTN (hypertension) Code(s): I10 - ESSENTIAL (PRIMARY) HYPERTENSION Status: Acute Qualifiers: Hypertension type: essential hypertension Qualified Code(s): I10 - Essential (primary) hypertension (6) BPH (benign prostatic hyperplasia) Code(s): N40.0 - BENIGN PROSTATIC HYPERPLASIA WITHOUT LOWER URINRY TRACT SYMP Status: Chronic Qualifiers: Lower urinary tract symptom presence: unspecified whether lower urinary tract symptoms present Qualified Code(s): N40.0 - Benign prostatic hyperplasia without lower urinary tract symptoms (7) COPD (chronic obstructive pulmonary disease) Status: Chronic Qualifiers: COPD type: chronic bronchitis (8) Dementia Code(s): F03.90 - UNSPECIFIED DEMENTIA WITHOUT BEHAVIORAL DISTURBANCE Status: Chronic Qualifiers: Dementia type: unspecified type Dementia behavioral disturbance: without behavioral disturbance Qualified Code(s): F03.90 - Unspecified dementia without behavioral disturbance - Plan Plan: Mr. Sarkar is an 89 yo M with a history of COPD, CAD, HTN, HLD, Anemia, Chronic back pain, Glaucoma, BPH, and GERD who was admitted for AHRF 2/2 COVID Pna. Assessment: 1. Acute Hypoxic Respiratory Failure 2/2 COVID PNA 2. Hypertension 3. Glaucoma 4. Chronic Back Pain 5. Benign Prostatic Hypertrophy 6. Chronic Obstructive Pulmonary Disease Plan: Oxygen requirement has increased and O2 sats have decrease. He is currently comfortable on medications. Addendum - Attending - Attending Attestation Date/Time: 05/11/20 [id number] I personally evaluated the patient and discussed the management with Dr. Trevino. I agree with the History, Examination, Assessment and Plan documented above with any addition or exceptions noted below. Patient's o2 sats are decreasing. Continue comfort care.
--- NOTE | 2020-05-13 14:22 | DIS ---
DATE OF ADMISSION: 05/08/2020 DATE OF DISCHARGE: 05/11/2020 DATE OF : 05/11/2020. TIME OF : 08:34 a.m. RESIDENT: Kiran Trevino MD. DISCHARGE ATTENDING: Brea Reza MD. CONSULTS: None. PROCEDURES: None. PRIMARY DIAGNOSIS: Acute hypoxic respiratory failure secondary to COVID pneumonia. SECONDARY DIAGNOSES: 1. Hypertension. 2. Glaucoma. 3. Chronic back pain. 4. Benign prostatic hypertrophy. 5. Chronic obstructive pulmonary disease. The patient was admitted to the inpatient hospice, because he is requiring high- flow oxygen. We continued to titrate the oxygen, but we were unable to maintain O2 sats and he slowly became hypoxic. He was placed on comfort measures during his hospitalization. He on 05/11/2010 at 8:34 a.m. pronounced by Rosi, the RN nurse for [facility]. Job ID: [id number] MTDD
== END 2020-05-11 08:34 | disposition expired | DRG 951 ==
LOC: T4-B 14:49
PROVIDERS: ADMIT Internal Medicine; ATTEND Internal Medicine
DX: Z51.5 Encounter for palliative care (principal); U07.1 COVID-19; J96.01 Acute respiratory failure with hypoxia; J12.89 Other viral pneumonia; J44.0 Chronic obstructive pulmonary disease with (acute) lower respiratory infection; Z66 Do not resuscitate; I25.10 Atherosclerotic heart disease of native coronary artery without angina pectoris; I10 Essential (primary) hypertension; E78.5 Hyperlipidemia, unspecified; G89.29 Other chronic pain; H40.9 Unspecified glaucoma; N40.0 Benign prostatic hyperplasia without lower urinary tract symptoms; D64.9 Anemia, unspecified; M54.9 Dorsalgia, unspecified; F03.90 Unspecified dementia, unspecified severity, without behavioral disturbance, psychotic disturbance, mood disturbance, and anxiety; K21.9 Gastro-esophageal reflux disease without esophagitis; Z90.49 Acquired absence of other specified parts of digestive tract; Z87.891 Personal history of nicotine dependence; Z79.899 Other long term (current) drug therapy; Z79.82 Long term (current) use of aspirin; Z79.52 Long term (current) use of systemic steroids
CPT/HCPCS: J2060; J2270